=== PATIENT | female | born 1955 | race Caucasian/White ===

== ENCOUNTER → 2018-04-25 09:18 | Outpatient (CLI) | payer OTHER, SELFPAY ==
--- NOTE | 2018-04-25 09:22 | DI.MG.S_ITS ---
BILATERAL DIGITAL SCREENING MAMMOGRAM 3D/2D WITH CAD: 04/25/2018 CLINICAL: Routine screening. Comparison is made to exams dated: 09/04/2016 mammogram, 09/04/2015 mammogram, and 05/30/2014 mammogram - [facility]. The tissue of both breasts is heterogeneously dense. This may lower the sensitivity of mammography. Current study was also evaluated with a Computer Aided Detection (CAD) system. No significant masses, calcifications, or other findings are seen in either breast. There has been no significant interval change. IMPRESSION: NEGATIVE There is no mammographic evidence of malignancy. A 1 year screening mammogram is recommended. This exam was interpreted at Station ID: [id number]. NOTE: For mammograms, a report in lay terms will be sent to the patient. Approximately 15% of breast malignancies will not be visualized mammographically. In the management of a palpable breast mass, a negative mammogram must not discourage biopsy of a clinically suspicious lesion. Electronically Signed By: Reagan espinosa/divya:04/27/2018 09:45:55 letter sent: Normal Exam ACR BI-RADS Category 1: Negative [id number]
[2018-04-25 10:16] LABS: Alanine Aminotransferase 29 IU/L (9-52); Albumin 4.6 g/dL (3.5-5.0); Albumin Globulin Ratio 1.7 (1.0-2.8); Alkaline Phosphatase 51 U/L (38-126); Aspartate Aminotransferase 25 IU/L (14-36); BUN Creatinine Ratio 15.5 (6-22); Bilirubin Total 0.8 mg/dL (0.2-1.3); Blood Urea Nitrogen 17 mg/dL (7-17); Calcium 10.1 mg/dL (8.4-10.2); Carbon Dioxide 26 mmol/L (22-32); Chloride 106 mmol/L (98-107); Cholesterol 228 mg/dL (140-199); Estimated Glomerular Filt Rate 50.2 mL/min (>60); Globulin 2.7 g/dL (1.7-4.1); Glucose 88 mg/dL (80-110); HDL Cholesterol 86 mg/dL (40-60); HEMOLYSIS < 15 (0-50); LDL Cholesterol Calculated 127 mg/dL (<100); Potassium 4.2 mmol/L (3.4-5.1); Sodium 142 mmol/L (137-145); Total Protein 7.3 g/dL (6.3-8.2); Triglycerides 74 mg/dL (35-150)
[2018-04-25 10:32] LABS: Vitamin D 25 Hydroxy (D3) 70.2 ng/mL (30.0-100.0)
[2018-04-25 10:45] LABS: Thyroid Stimulating Hormone 0.82 uIU/mL (0.47-4.68)
== END ==
PROVIDERS: PCP Family Medicine; Visit Provider Physician Assistant
DX: Z12.31 Encounter for screening mammogram for malignant neoplasm of breast (principal); E03.9 Hypothyroidism, unspecified; E78.5 Hyperlipidemia, unspecified; M81.0 Age-related osteoporosis without current pathological fracture; B19.10 Unspecified viral hepatitis B without hepatic coma; Z86.39 Personal history of other endocrine, nutritional and metabolic disease
CPT/HCPCS: 36415; 77063; 77067; 80053; 80061; 82306; 84439; 84443; 87517

== ENCOUNTER → 2018-05-05 10:50 | Outpatient (CLI) | payer OTHER, SELFPAY ==
--- NOTE | 2018-05-05 10:52 | DI.RAD.S_ITS ---
PROCEDURE: XR SHOULDER RT MIN 2V INDICATIONS: bilateral shoulder pain TECHNIQUE: 3 views of the shoulder were acquired. COMPARISON: None. FINDINGS: Bones: No fractures or dislocations but there is near severe degenerative osteoarthritic change at the glenohumeral joint and moderately severe such degeneration at the right acromioclavicular joint. No suspicious bony lesions. Visualized ribs appear intact. Soft tissues: No suspicious soft tissue calcifications. IMPRESSION: Shoulder joint osteoarthritis on the right overall is quite severe and most pronounced at the glenohumeral joint. It is less pronounced at the acromioclavicular joint with each of these joints show greater degeneration than the corresponding areas of the left shoulder. Dictated by: Ramo Ryan M.D. on 05/05/2018 at 13:01 Approved by: Ramo Ryan M.D. on 05/05/2018 at 13:02
--- NOTE | 2018-05-05 10:52 | DI.RAD.S_ITS ---
PROCEDURE: XR SHOULDER LT MIN 2V INDICATIONS: bilateral shoulder pain TECHNIQUE: 3 views of the shoulder were acquired. COMPARISON: None. FINDINGS: Bones: No fractures or dislocations there is moderately severe glenohumeral joint osteoarthritis and moderate acromioclavicular degenerative change, without effusion or evidence of loose body. No suspicious bony lesions. Visualized ribs appear intact. Soft tissues: No suspicious soft tissue calcifications. IMPRESSION: Shoulder joint osteoarthritis is moderately severe the glenohumeral joint, and moderate at the acromioclavicular joint but no recent trauma is suspected. Dictated by: Ramo Ryan M.D. on 05/05/2018 at 13:00 Approved by: Ramo Ryan M.D. on 05/05/2018 at 13:01
== END ==
PROVIDERS: PCP Physician Assistant; Visit Provider Physician Assistant
DX: M25.511 Pain in right shoulder (principal); M25.512 Pain in left shoulder; M19.012 Primary osteoarthritis, left shoulder; M19.011 Primary osteoarthritis, right shoulder
CPT/HCPCS: 73030

== ENCOUNTER → 2018-07-15 08:31 | Outpatient (CLI) | payer OTHER, SELFPAY ==
[2018-07-15 11:27] LABS: TSH w/ Reflex to FT4 1.63 uIU/mL (0.47-4.68)
== END ==
PROVIDERS: PCP Physician Assistant; Visit Provider Internal Medicine
DX: E89.0 Postprocedural hypothyroidism (principal)
CPT/HCPCS: 36415; 84443

== ENCOUNTER → 2018-11-04 11:37 | Outpatient (CLI) | payer OTHER, SELFPAY ==
[2018-11-04 12:29] LABS: Add Manual Diff / Slide Review NO; Basophils Absolute Auto 100 /uL (0-100); Basophils Percent Auto 1.8 % (0-2); Eosinophils Absolute Auto 200 /uL (0-450); Eosinophils Percent Auto 3.3 % (2-4); Hematocrit 38.4 % (36-46); Hemoglobin 12.7 g/dL (12.0-16.0); Lymphocytes Absolute Auto 2800 /uL (1100-4500); Lymphocytes Percent Auto 38.7 % (25-40); Mean Corpuscular HGB Conc 33.1 % (30-36); Mean Corpuscular Hemoglobin 29.6 PG (26-34); Mean Corpuscular Volume 89.5 fL (80-100); Monocytes Absolute Auto 500 /uL (0-900); Monocytes Percent Auto 6.5 % (3-14); Neutrophils Absolute Auto 3600 /uL (1500-7000); Neutrophils Percent Auto 49.7 % (50-75); Platelet Count 339 X10^3/uL (150-400); White Blood Cell Count 7.3 X10^3/uL (4.5-11.0)
[2018-11-04 12:42] LABS: Alanine Aminotransferase 20 IU/L (9-52); Albumin 4.3 g/dL (3.5-5.0); Albumin Globulin Ratio 1.7 (1.0-2.8); Alkaline Phosphatase 49 U/L (38-126); Aspartate Aminotransferase 23 IU/L (14-36); Bilirubin Total 0.4 mg/dL (0.2-1.3); Blood Urea Nitrogen 15 mg/dL (7-17); Calcium 9.9 mg/dL (8.4-10.2); Carbon Dioxide 25 mmol/L (22-32); Chloride 108 mmol/L (98-107); Estimated Glomerular Filt Rate 55.8 mL/min (>60); Globulin 2.5 g/dL (1.7-4.1); Glucose 87 mg/dL (80-110); HEMOLYSIS < 15 (0-50); Potassium 4.4 mmol/L (3.4-5.1); Sodium 142 mmol/L (137-145); Total Protein 6.8 g/dL (6.3-8.2)
[2018-11-04 13:13] LABS: Thyroid Stimulating Hormone 0.82 uIU/mL (0.47-4.68)
== END ==
PROVIDERS: Family Provider Family Medicine; PCP Physician Assistant; Visit Provider Physician Assistant
DX: E03.9 Hypothyroidism, unspecified (principal); R19.7 Diarrhea, unspecified
CPT/HCPCS: 36415; 80053; 84443; 85025

== ENCOUNTER → 2018-11-06 10:15 | Outpatient (CLI) | payer OTHER, SELFPAY ==
[2018-11-06 12:16] LABS: Clostridium Difficile Tox PCR Negative for C. diff
== END ==
PROVIDERS: PCP Physician Assistant; Visit Provider Physician Assistant
DX: E03.9 Hypothyroidism, unspecified (principal); R19.7 Diarrhea, unspecified
CPT/HCPCS: 87045; 87493; 87899

== ENCOUNTER 2019-03-10 09:22 | Day surgery (SDC) | payer OTHER, SELFPAY ==
--- NOTE | 2019-03-10 | PATH_ITS ---
[facility] Accession Number: [id number] . 01 Material submitted: . colon - RANDOM COLON BIOPSIES . 01 Clinical history: . COLONOSCOPY W/POSS BX . 02 Diagnosis: Random Colon, Biopsies: Collagenous colitis. Negative for granulomas, dysplasia and malignancy. MRV 03/11/2019 1258 Local . 02 Electronically signed: . Roxann Fong MD, Pathologist NPI- [id number] . 01 Gross description: . RANDOM COLON BIOPSIES: Received in formalin are multiple fragment(s) of hummel, soft tissue measuring 0.1 x 0.1 x 0.1 cm to 0.3 x 0.2 x 0.2 cm submitted entirely in 1 cassette(s) [place] [place]10[place] 2225 Local . 02 Pathologist provided ICD-10: R19.7, K52.89 . 02 CPT . 982538 Performed at: 01 [facility] [address] [facility], [place], [place] [id number] MD Reagan York MD Phone: [phone] Performed at: 02 [facility] [address] [place], [place] [id number] MD Roxann Fong MD Phone: [phone]
[2019-03-10 10:12] VITALS: BP 126/77; PULSE 78; RESP 17; TEMP 36.7; O2SAT 98
[2019-03-10] MEDS: SODIUM CHLORIDE 0.9% 1,000 ML 42 ML IV (10:17)
--- NOTE | 2019-03-10 10:31 | PM.HP.1 ---
History of Present Illness History of Present Illness Chief complaint: [id number] COLONOSCOPY W/POSS BX Patient History Medical History (Updated 11/04/18 @ 11:46 by Margot Mo PA-C) Abnormal Pap smear of cervix (Resolved) Anxiety (Chronic) Cataracts, bilateral (Chronic) Cervical cancer (Chronic) Chicken pox (Resolved) Graves disease (Chronic) Hepatitis B (Chronic) Hyperthyroidism (Chronic) Migraines (Chronic) Plantar warts (Chronic) Shoulder pain (Chronic) Skin cancer (Chronic) Vision disorder (Chronic) Surgical History (Updated 05/17/18 @ 20:45 by Becca Agarwal) Anesthesia (Resolved) History of hip replacement Family & Social History Family History (Updated 05/17/18 @ 20:46 by Becca Agarwal) Father Alcoholism Cancer of bladder Diabetes mellitus Emphysema Mental health problem Mother Alcoholism Grandmother Alzheimer's disease Grandfather Emphysema Grandmother No problems noted. Social History: household members none Tobacco & Substance use: Smoking Status Former smoker alcohol intake current Meds Home Medications and Allergies Home Medications Medication Instructions Recorded Confirmed Type levothyroxine 75 mcg tablet See Rx Instructions PO .6 days a 11/04/18 03/10/19 History week tab levothyroxine 88 mcg tablet See Rx Instructions PO .one day a 11/04/18 03/10/19 History week tab Allergies Allergy/AdvReac Type Severity Reaction Status Date / Time taylor [TAYLOR] Allergy Intermediate blisters Verified 03/10/19 10:04 Exam Vital Signs (past 8 hours): - 03/10/19 10:12 Temperature 98.1 F Pulse Rate 78 Respiratory Rate 17 Blood Pressure 126/77 Pulse Oximetry 98 Oxygen Delivery Method Room Air Narrative Exam Narrative: Oropharynx free of lesions Chest clear to auscultation percussion Cardiac exam reveals no S3 or murmur Assessment & Plan Assessment & Plan narrative: Chronic diarrhea of unknown etiology. Rule out underlying colitis particularly microscopic colitis and need for screening for colorectal cancer Risks, benefits, alternatives have been explained. Further recommendations will follow the results of the study.
--- NOTE | 2019-03-10 10:32 | PM.OP.ENDO ---
Operative Date/Time/Diagnoses Date of procedure: 03/10/19 Time of procedure: 10:32 Pre-op diagnosis: See indication and findings Procedure & Clinicians Study performed: Colonoscopy Indications: Chronic diarrhea Surgeon: Star Briseno Procedure Notes Procedure in detail: After informed consent was obtained the patient was placed in left lateral decubitus position. The video colonoscope was introduced the rectum slowly advanced to the cecum and in the terminal ileum was intubated.. On slow withdrawal mucosa was carefully examined. The scope was removed. The patient tolerated procedure well. Blood loss none Complications none Sedation Total sedation time 18 minutes Versed 6 mg fentanyl 100 mg IV titration Findings 1. Normal terminal ileum Two. Normal colonoscopy to cecum. Random biopsies taken to rule out microscopic colitis Will be in touch with her regarding biopsies. If negative have to consider diagnoses for her chronic diarrhea. Recall should be 5-10 years.
[2019-03-10] MEDS: MIDAZOLAM 5 MG/5 ML VIAL IV (11:22)
[2019-03-10] MEDS: fentaNYL 250 MCG/5 ML INJ IV (11:23)
[2019-03-10 11:27] VITALS: BP 101/61; PULSE 72; RESP 13; TEMP 36.8; O2SAT 94
[2019-03-10 11:32] VITALS: BP 101/66; PULSE 69; RESP 13; O2SAT 95
[2019-03-10 11:37] VITALS: BP 104/66; PULSE 73; RESP 11; O2SAT 95
[2019-03-10 11:52] VITALS: BP 100/65; PULSE 71; RESP 14; O2SAT 95
[2019-03-10 12:08] VITALS: BP 105/68; PULSE 83; RESP 16; TEMP 36.6; O2SAT 98
== END 2019-03-10 12:17 | disposition home or self-care (01) ==
PROVIDERS: PCP Physician Assistant; Visit Provider Internal Medicine Gastroenterology
PROC: 0DJD8ZZ Inspection of Lower Intestinal Tract, Via Natural or Artificial Opening Endoscopic (ICD-10-PCS; CPT 45378; principal; 2019-03-10 10:30)
DX: K52.831 Collagenous colitis (principal); F41.9 Anxiety disorder, unspecified; E03.9 Hypothyroidism, unspecified
CPT/HCPCS: 45380; J2250; J3010

== ENCOUNTER → 2019-10-29 11:17 | Outpatient (CLI) | payer MEDICARE, OTHER, SELFPAY ==
--- NOTE | 2019-10-29 | DI.MG.S_ITS ---
BILATERAL DIGITAL SCREENING MAMMOGRAM 3D/2D WITH CAD: 10/29/2019 CLINICAL: Routine screening. Family history of breast cancer. Comparison is made to exams dated: 04/25/2018 mammogram, 09/04/2016 mammogram, and 09/04/2015 mammogram - [facility]. The tissue of both breasts is heterogeneously dense. This may lower the sensitivity of mammography. Current study was also evaluated with a Computer Aided Detection (CAD) system. No significant masses, calcifications, or other findings are seen in either breast. There has been no significant interval change. IMPRESSION: NEGATIVE There is no mammographic evidence of malignancy. A 1 year screening mammogram is recommended. This exam was interpreted at Station ID: [id number]. NOTE: For mammograms, a report in lay terms will be sent to the patient. Approximately 15% of breast malignancies will not be visualized mammographically. In the management of a palpable breast mass, a negative mammogram must not discourage biopsy of a clinically suspicious lesion. Electronically Signed By: Reagan espinosa/divya:10/29/2019 13:01:35 copy to: Piedad Ramirez letter sent: Normal Exam ACR BI-RADS Category 1: Negative [id number]
== END ==
PROVIDERS: PCP Registered Nurse Diabetes Educator; Referring Provider Physician Assistant; Visit Provider Physician Assistant
DX: Z12.31 Encounter for screening mammogram for malignant neoplasm of breast (principal); Z80.3 Family history of malignant neoplasm of breast
CPT/HCPCS: 77063; 77067

== ENCOUNTER → 2019-11-02 10:28 | Outpatient (CLI) | payer MEDICARE, OTHER, SELFPAY ==
[2019-11-02 11:37] LABS: Add Manual Diff / Slide Review NO; Basophils Absolute Auto 100 /uL (0-100); Basophils Percent Auto 1.1 % (0-2); Eosinophils Absolute Auto 200 /uL (0-450); Eosinophils Percent Auto 3.9 % (2-4); Hematocrit 37.8 % (36-46); Hemoglobin 12.6 g/dL (12.0-16.0); Lymphocytes Absolute Auto 2500 /uL (1100-4500); Lymphocytes Percent Auto 39.3 % (25-40); Mean Corpuscular HGB Conc 33.3 % (30-36); Mean Corpuscular Hemoglobin 29.9 PG (26-34); Mean Corpuscular Volume 89.6 fL (80-100); Monocytes Absolute Auto 500 /uL (0-900); Monocytes Percent Auto 7.4 % (3-14); Neutrophils Absolute Auto 3100 /uL (1500-7000); Neutrophils Percent Auto 48.3 % (50-75); Platelet Count 316 X10^3/uL (150-400); Red Blood Cell Count 4.22 X10^6/uL (4.0-5.2); Red Cell Distribution Width 14.9 % (11.6-14.8); White Blood Cell Count 6.4 X10^3/uL (4.5-11.0)
[2019-11-02 12:08] LABS: Alanine Aminotransferase 17 IU/L (<35); Albumin 3.9 g/dL (3.5-5.0); Albumin Globulin Ratio 1.7 (1.0-2.8); Alkaline Phosphatase 50 U/L (38-126); Aspartate Aminotransferase 26 IU/L (14-36); BUN Creatinine Ratio 13.8 (6-22); Bilirubin Total 0.3 mg/dL (0.2-1.3); Blood Urea Nitrogen 12 mg/dL (7-17); Calcium 9.6 mg/dL (8.4-10.2); Carbon Dioxide 24 mmol/L (22-32); Chloride 107 mmol/L (98-107); Cholesterol 195 mg/dL (140-199); Estimated Glomerular Filt Rate > 60.0 mL/min (>60); Globulin 2.3 g/dL (1.7-4.1); Glucose 84 mg/dL (80-110); HDL Cholesterol 65 mg/dL (40-60); HEMOLYSIS < 15 (0-50); LDL Cholesterol Calculated 90 mg/dL (<100); Potassium 4.1 mmol/L (3.4-5.1); Sodium 138 mmol/L (137-145); Total Protein 6.2 g/dL (6.3-8.2); Triglycerides 198 mg/dL (35-150)
[2019-11-02 12:37] LABS: TSH w/ Reflex to FT4 1.29 uIU/mL (0.47-4.68)
== END ==
PROVIDERS: PCP Registered Nurse Diabetes Educator; Referring Provider Registered Nurse Diabetes Educator; Visit Provider Registered Nurse Diabetes Educator
DX: E03.9 Hypothyroidism, unspecified (principal); R94.4 Abnormal results of kidney function studies
CPT/HCPCS: 36415; 80053; 80061; 84443; 85025

== ENCOUNTER 2019-11-17 15:15 | Emergency (ER) | payer MEDICARE, OTHER, SELFPAY ==
[2019-11-17 15:22] VITALS: BP 149/67; PULSE 78; RESP 17; TEMP 36.3; O2SAT 98; BMI 20.3
--- NOTE | 2019-11-17 15:25 | DI.RAD.S_ITS ---
PROCEDURE: XR CLAVICLE LT INDICATIONS: fell onto left shoulder TECHNIQUE: 2 views of the clavicle were acquired. COMPARISON: [facility], CR, XR SHOULDER RT MIN 2V, 05/05/2018, 10:56. [facility], CR, XR SHOULDER LT MIN 2V, 05/05/2018, 10:56[facility], CR, XR SHOULDER LT MIN 2V, 11/17/2019, 15:17. FINDINGS: Bones: There is a mid to distal clavicular shaft fracture with superior displacement of the distal fracture fragment. The right acromioclavicular joint is intact. There is mild AC joint degeneration.. No suspicious bony lesions. Soft tissues: No suspicious soft tissue calcifications. IMPRESSION: Mid to distal left clavicular shaft fracture. Dictated by: Rosy Acharya M.D. on 11/17/2019 at 15:50 Approved by: Rosy Acharya M.D. on 11/17/2019 at 15:53
--- NOTE | 2019-11-17 15:25 | DI.RAD.S_ITS ---
PROCEDURE: XR SHOULDER LT MIN 2V INDICATIONS: fell onto left shoulder TECHNIQUE: 2 views of the shoulder were acquired. COMPARISON: [facility], CR, XR SHOULDER LT MIN 2V, 05/05/2018, 10:56. FINDINGS: Bones: There is a left mid to distal clavicular shaft fracture. Severe glenohumeral joint degeneration and mild acromioclavicular joint degeneration. No suspicious bony lesions. Visualized ribs appear intact. Soft tissues: No suspicious soft tissue calcifications. IMPRESSION: Left clavicular shaft fracture. Dictated by: Rosy Acharya M.D. on 11/17/2019 at 15:53 Approved by: Rosy Acharya M.D. on 11/17/2019 at 15:55
[2019-11-17] MEDS: OXYCODONE/ACETAMINOPHEN 5/325 TABLET 1 TAB PO (18:50)
[2019-11-17] MEDS: IBUPROFEN 400 MG TABLET PO (18:50)
--- NOTE | 2019-11-17 18:55 | ED.UPPEXIN ---
HPI - Extremity Injury (Upper) General Chief Complaint: Extremity Injury, Upper Stated Complaint: thinks broke her left shoulder Time Seen by Provider: 11/17/19 18:11 Source: patient Mode of arrival: Wheelchair Limitations: no limitations History of Present Illness HPI narrative: 64-year-old woman with a history of hypothyroidism was working in her yard stumbled and fell forward landing on her left shoulder. She was able to get up and get back in to call for assistance. She is complaining of significant left upper chest and left shoulder pain having difficulty moving her arm due to pain. Related Data Home Medications Medication Instructions Recorded Confirmed levothyroxine 75 mcg tablet See Rx Instructions PO .6 days a 11/04/18 11/08/19 week tab levothyroxine 88 mcg tablet See Rx Instructions PO .one day a 11/04/18 11/08/19 week tab Previous Rx's Medication Instructions Recorded oxycodone-acetaminophen 1 tab PO Q6H PRN #14 tab 11/17/19 Allergies Allergy/AdvReac Type Severity Reaction Status Date / Time taylor [TAYLOR] Allergy Intermediate blisters Verified 11/17/19 15:38 Review of Systems Review of Systems Narrative: Pertinent positive and negative findings as per HPI Remainder of review of systems is otherwise unremarkable for Constitutional: Fevers, chills, weakness ENT: No sore throat, neck pain, ear pain CV: Chest pain, palpitations, dyspnea on exertion Respiratory: Cough, wheeze, dyspnea GI: Nausea, vomiting, diarrhea, change in bowel habits, black or bloody stools : Dysuria, hematuria, flank pain Neuro: Syncope, dizziness, tingling Patient History Medical History Abnormal Pap smear of cervix (Resolved) Anxiety (Chronic) Cataracts, bilateral (Chronic) Cervical cancer (Chronic) Chicken pox (Resolved) Graves disease (Chronic) Hepatitis B (Chronic) Hyperthyroidism (Chronic) Migraines (Chronic) Plantar warts (Chronic) Renal function test abnormal (Acute) Shoulder pain (Chronic) Skin cancer (Chronic) Vision disorder (Chronic) Surgical History Anesthesia (Resolved) History of hip replacement Family History Father Alcoholism Cancer of bladder Diabetes mellitus Emphysema Mental health problem Mother Alcoholism Grandmother Alzheimer's disease Grandfather Emphysema Grandmother No problems noted. Social History household members: none Smoking Status: Former smoker Tobacco: How many years used: 48 second hand exposure: No alcohol intake: current substance use type: marijuana Smoking Status: Former smoker alcohol intake frequency: holidays/special occasions only Substance Use Type: marijuana Exam Narrative Exam Narrative: General: Alert appropriate in moderate pain Neck: Supple with no midline point tenderness Chest: Large hematoma over mid clavicle left side without skin breakdown. Respiratory: Able to speak in full sentences, no obvious respiratory distress, no wheezing Skin: No obvious rashes, warm and dry Neurologic: Grossly intact no obvious asymmetries or abnormalities Psych, appropriate insight and affect, cooperative Extremity: Left arm causes significant pain to the clavicle with any movement. No actual arm tenderness full range of motion at the elbow and the wrist, shoulder is to tender to move through all planes of passive range of motion. She is neurovascularly intact Initial Vital Signs Initial Vital Signs: Vital Signs Temperature 97.3 F L 11/17/19 15:22 Pulse Rate 78 11/17/19 15:22 Respiratory Rate 17 11/17/19 15:22 Blood Pressure 149/67 H 11/17/19 15:22 Pulse Oximetry 98 11/17/19 15:22 Course Orders Ordered: Discontinued Medications Ibuprofen (Advil) 400 mg PO NOW ONE Stop: 11/17/19 18:45 Last Admin: 11/17/19 18:50 Dose: 400 mg Documented by: MENDEZ Oxycodone/Acetaminophen (Percocet 5/325) 1 tab PO NOW ONE Stop: 11/17/19 18:45 Last Admin: 11/17/19 18:50 Dose: 1 tab Documented by: MENDEZ Vital Signs Vital signs: Vital Signs - 8 hr 11/17/19 19:00 Pulse Rate 63 Respiratory Rate 15 Blood Pressure 146/74 H Pulse Oximetry 100 MDM - Extremity Injury (Upper) Medical Records Attestation: I reviewed the patient's medical records. Imaging Data X-ray shoulder: Radiologist's Impression: IMPRESSION: Left clavicular shaft fracture. Dictated by: Rosy Acharya M.D. on 11/17/2019 at 15:53 X-ray clavicle: Radiologist's Impression: Bones: There is a mid to distal clavicular shaft fracture with superior displacement of the distal fracture fragment. The right acromioclavicular joint is intact. There is mild AC joint degeneration.. No suspicious bony lesions. Soft tissues: No suspicious soft tissue calcifications. IMPRESSION: Mid to distal left clavicular shaft fracture. Dictated by: Rosy Acharya M.D. on 11/17/2019 at 15:50 MDM Narrative Medical decision making narrative: Mechanical fall with left mid to distal shaft fracture of the clavicle. No other significant trauma. She is placed in a sling and instructed to follow-up with orthopedics. Pain control and anticipated course of healing are reviewed. She is safe for home discharge Discharge Plan Departure Patient Disposition: Home Clinical Impression: Clavicle fracture Qualifiers: Encounter type: initial encounter Clavicle location: shaft Fracture type: closed Fracture alignment: displaced Laterality: left Qualified Code(s): S42.022A - Displaced fracture of shaft of left clavicle, initial encounter for closed fracture Fall Qualifiers: Encounter type: initial encounter Qualified Code(s): W19.XXXA - Unspecified fall, initial encounter Discharge Date/Time: 11/17/19 19:17 Instructions: DI for Clavicle Fracture-Adult Activity Restrictions/Additional Instructions: Thank you for coming in today I am so sorry you had to wait so long and I am sorry that you fell down and broke your collarbone. Fortunately, you did not do any other damage to yourself. The collarbone is broken about half way. It is slightly overlapping but otherwise nicely approximated. The treatment for this is pain control and a sling for comfort. You will need to follow-up with our orthopedic surgeon, Dr. Hills within the next 2-7 days. There is a good chance that you will not need any surgery and this is going to heal nicely. Using 400 mg of ibuprofen (2 cwum-hki-alxfvde pills) and 1 Tylenol every 6 hours can be very helpful in controlling pain. For severe pain, using 400 mg of ibuprofen and 1 Percocet can be helpful. Any time you take a Percocet, please be aware there is narcotic in it. About he should not be driving and taking stool softeners to prevent constipation any time you are on narcotics is helpful. 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 If you notice new findings, other concerns or your pain is unable to be controlled, please feel free to return to the emergency department. I hope you heal quickly Prescriptions: New oxycodone-acetaminophen 5-325 mg tablet 1 tab PO Q6H PRN (Reason: pain) Qty: 14 RF: 0 No Action levothyroxine 75 mcg tablet See Rx Instructions PO .6 days a week RF: 0 levothyroxine 88 mcg tablet See Rx Instructions PO .one day a week RF: 0 Referrals: Riccardo Trent ARNP [Primary Care Provider] - Mati Hills MD [Physician] -
[2019-11-17 19:00] VITALS: BP 146/74; PULSE 63; RESP 15; O2SAT 100
== END 2019-11-17 19:17 | disposition home or self-care (01) ==
PROVIDERS: Emergency Provider Emergency Medicine; PCP Registered Nurse Diabetes Educator
DX: S42.022A Displaced fracture of shaft of left clavicle, initial encounter for closed fracture (principal); W19.XXXA Unspecified fall, initial encounter; R07.9 Chest pain, unspecified
CPT/HCPCS: 73000; 73030; 99283; 99284

== ENCOUNTER → 2020-06-10 13:09 | Outpatient (CLI) | payer MEDICARE, OTHER, SELFPAY ==
--- NOTE | 2020-06-10 | DI.RAD.S_ITS ---
PROCEDURE: XR CHEST 2V INDICATIONS: abnormal breath sounds TECHNIQUE: 2 views of the chest were acquired. COMPARISON: [facility], CR, XR CLAVICLE LEFT, 02/11/2020, 10:13. [facility], CR, CHEST 2VW, 01/09/2009, 10:06. FINDINGS: Surgical changes and devices: None. Lungs and pleura: Lungs are clear. No pleural effusions or pneumothorax. Mediastinum: Mediastinal contours are normal. Heart size is normal. Bones and chest wall: No suspicious bony abnormalities. A healing left clavicle fracture can be seen. Age-appropriate bony degenerative changes are seen. Soft tissues appear unremarkable. IMPRESSION: Clear lungs. Healing left clavicle fracture. Dictated by: Russ Monsalve M.D. on 06/10/2020 at 12:38 Approved by: Russ Monsalve M.D. on 06/10/2020 at 12:39
== END ==
PROVIDERS: PCP Registered Nurse Diabetes Educator; Referring Provider Internal Medicine Endocrinology, Diabetes & Metabolism; Visit Provider Internal Medicine Endocrinology, Diabetes & Metabolism
DX: R06.9 Unspecified abnormalities of breathing (principal); S42.002D Fracture of unspecified part of left clavicle, subsequent encounter for fracture with routine healing
CPT/HCPCS: 71046

== ENCOUNTER → 2020-06-19 11:25 | Outpatient (CLI) | payer MEDICARE, OTHER, SELFPAY ==
[2020-06-19 14:35] LABS: Free T3, Triiodothyronine Free 2.55 pg/mL (2.77-5.27)
[2020-06-19 14:48] LABS: Thyroid Stimulating Hormone 1.88 uIU/mL (0.47-4.68)
== END ==
PROVIDERS: PCP Registered Nurse Diabetes Educator; Referring Provider Internal Medicine Endocrinology, Diabetes & Metabolism; Visit Provider Internal Medicine Endocrinology, Diabetes & Metabolism
DX: E89.0 Postprocedural hypothyroidism (principal); Z86.39 Personal history of other endocrine, nutritional and metabolic disease; I48.0 Paroxysmal atrial fibrillation
CPT/HCPCS: 36415; 84439; 84443; 84481

== ENCOUNTER → 2020-11-29 11:52 | Outpatient (CLI) | payer MEDICARE, OTHER, SELFPAY ==
[2020-11-29 13:52] LABS: Free T3, Triiodothyronine Free 2.88 pg/mL (2.77-5.27)
[2020-11-29 14:06] LABS: Thyroid Stimulating Hormone 1.06 uIU/mL (0.47-4.68)
== END ==
PROVIDERS: PCP Physician Assistant; Referring Provider Internal Medicine Endocrinology, Diabetes & Metabolism; Visit Provider Internal Medicine Endocrinology, Diabetes & Metabolism
DX: E89.0 Postprocedural hypothyroidism (principal); Z86.39 Personal history of other endocrine, nutritional and metabolic disease; I48.0 Paroxysmal atrial fibrillation
CPT/HCPCS: 36415; 84443; 84481

== ENCOUNTER → 2021-04-02 15:04 | Outpatient (CLI) | payer MEDICARE, OTHER, SELFPAY ==
[2021-04-02 17:42] LABS: Hep C Virus Ab w/Reflex Quant NEGATIVE s/c (NEGATIVE)
== END ==
PROVIDERS: PCP Physician Assistant; Referring Provider Physician Assistant; Visit Provider Physician Assistant
DX: Z11.59 Encounter for screening for other viral diseases (principal)
CPT/HCPCS: 36415; 86803

== ENCOUNTER → 2021-10-03 12:12 | Outpatient (CLI) | payer MEDICARE, OTHER, SELFPAY ==
--- NOTE | 2021-10-03 12:15 | DI.RAD.S_ITS ---
PROCEDURE: XR FOOT LT MIN 3V INDICATIONS: Foot Injury TECHNIQUE: 3 views of the foot were acquired. COMPARISON: None. FINDINGS: Bones: Nondisplaced fifth metatarsal base fracture. No suspicious bony lesions. Metallic density overlying the mid second phalanx. Soft tissues: No tibiotalar joint effusion. Achilles tendon appears normal. IMPRESSION: Nondisplaced fifth metatarsal base fracture. Dictated by: Vera Hamm M.D. on 10/03/2021 at 13:23 Approved by: Vera Hamm M.D. on 10/03/2021 at 13:25
== END ==
PROVIDERS: PCP Physician Assistant; Referring Provider Physician Assistant; Visit Provider Physician Assistant
DX: S92.355A Nondisplaced fracture of fifth metatarsal bone, left foot, initial encounter for closed fracture (principal); M79.672 Pain in left foot; X58.XXXA Exposure to other specified factors, initial encounter
CPT/HCPCS: 73630

== ENCOUNTER → 2021-12-11 12:09 | Outpatient (CLI) | payer MEDICARE, OTHER, SELFPAY | PROVIDERS: PCP Physician Assistant; Referring Provider Physician Assistant; Visit Provider Physician Assistant | DX: E89.0 Postprocedural hypothyroidism (principal) | CPT/HCPCS: 36415; 84443 ==

== ENCOUNTER 2022-01-09 11:43 | Inpatient (IN) | payer MEDICARE, OTHER, SELFPAY ==
[2022-01-09] VITALS (17 sets, daily range): BP systolic 103–129; BP diastolic 56–65; PULSE 71–83; RESP 16–18; TEMP 36.7–37.8; O2SAT 87–99; BMI 19.8
[2022-01-09 12:38] LABS: Add Manual Diff / Slide Review NO; Basophils Absolute Auto 100 /uL (0-100); Basophils Percent Auto 0.8 % (0-2); Eosinophils Absolute Auto 200 /uL (0-450); Eosinophils Percent Auto 1.6 % (2-4); Hematocrit 33.7 % (36-46); Hemoglobin 11.4 g/dL (12.0-16.0); Lymphocytes Absolute Auto 2100 /uL (1100-4500); Lymphocytes Percent Auto 18.6 % (25-40); Mean Corpuscular HGB Conc 33.8 % (30-36); Mean Corpuscular Hemoglobin 29.8 PG (26-34); Mean Corpuscular Volume 88.2 fL (80-100); Monocytes Absolute Auto 1500 /uL (0-900); Monocytes Percent Auto 13.5 % (3-14); Neutrophils Absolute Auto 7300 /uL (1500-7000); Neutrophils Percent Auto 65.5 % (50-75); Platelet Count 409 X10^3/uL (150-400); Red Blood Cell Count 3.82 X10^6/uL (4.0-5.2); Red Cell Distribution Width 13.5 % (11.6-14.8); White Blood Cell Count 11.2 X10^3/uL (4.5-11.0)
[2022-01-09 12:50] LABS: Alanine Aminotransferase 37 IU/L (<35); Albumin 3.5 g/dL (3.5-5.0); Albumin Globulin Ratio 1.1 (1.0-2.8); Alkaline Phosphatase 142 U/L (38-126); Aspartate Aminotransferase 38 IU/L (14-36); BUN Creatinine Ratio 15.6 (6-22); Bilirubin Total 0.6 mg/dL (0.2-1.3); Blood Urea Nitrogen 12 mg/dL (7-17); Calcium 8.4 mg/dL (8.4-10.2); Carbon Dioxide 24 mmol/L (22-32); Chloride 102 mmol/L (98-107); Estimated Glomerular Filt Rate > 60 mL/min (>60); Globulin 3.3 g/dL (1.7-4.1); Glucose 108 mg/dL (80-110); HEMOLYSIS < 15 (0-50); Lipase 43 U/L (23-300); Potassium 2.9 mmol/L (3.4-5.1); Sodium 137 mmol/L (137-145); Total Protein 6.8 g/dL (6.3-8.2)
--- NOTE | 2022-01-09 15:53 | DI.CT.S_ITS ---
PROCEDURE: CT ABDOMEN PELVIS W CON INDICATIONS: RLQ tenderness, appy vs colitis? TECHNIQUE: After the administration of oral and IV contrast, axial sections were acquired from the lung bases to the pubic symphysis. Coronal and sagittal reformats were performed. For radiation dose reduction, the following was used: automated exposure control, adjustment of mA and/or kV according to patient size. COMPARISON: None. FINDINGS: Image quality: Excellent. Lung bases: Unremarkable. Heart: No significant findings. ABDOMEN: Liver: Density at the falciform ligament. Suspect focal fatty infiltration. Gallbladder: Unremarkable. Biliary ducts: Unremarkable. Pancreas: Unremarkable. Spleen: Unremarkable. Adrenal Glands: Unremarkable. Kidneys and Ureters: No hydronephrosis. Small left renal cysts. Stomach and Bowel: Stomach is not distended. No small bowel obstruction. There is a fluid collection medial adjacent to the cecum measuring 6.8 x 3.8 x 2.8 cm, (08/07 and ), estimated volume of 38 cc. There is a small amount of air within this collection. There is an appendiculolith suspected which measures 2.1 cm. There is thickening at the cecum. Diverticulosis. There is a small amount of fluid tracking along the liver and as well as in the right lower quadrant pericolic gutter and right pelvis. No gross pneumoperitoneum. Peritoneum: No abnormal intraperitoneal fluid. No free air. Ventral Wall: No hernia. Abdominal Nodes: No retroperitoneal or mesenteric adenopathy by size criteria. Vessels: Aorta and inferior vena cava are normal in size. PELVIS: Beam hardening in the pelvis. Pelvic Organs: Trace free fluid. Bladder: Unremarkable. Pelvic Nodes: No enlarged lymph nodes. Miscellaneous: No inguinal hernias are seen. Bones: No suspicious lesion. DDD most pronounced at L4-L5 and L5-S1. Bilateral hip arthroplasties. IMPRESSION: 1. Findings most consistent with a ruptured appendicitis. Right lower quadrant abscess measuring 6.8 cm in maximum length and approximately 38 cc. 2. No small bowel obstruction. No hydronephrosis. Comment: Findings were discussed with Roxann Borjas at time of dictation. Dictated by: Mo Johnson M.D. on 01/09/2022 at 17:07 Approved by: Mo Johnson M.D. on 01/09/2022 at 17:19
[2022-01-09] MEDS: LACTATED RINGERS 1,000 ML 1000 ML IV (16:18)
[2022-01-09] MEDS: KETOROLAC 30 MG/ML VIAL 15 MG IV (16:19)
[2022-01-09] MEDS: POTASSIUM CHLORIDE 20 MEQ/15 ML UDC 40 MEQ PO (16:19)
[2022-01-09 16:32] LABS: C-Reactive Protein Quant 6.8 mg/dL (<1.0)
[2022-01-09 16:47] LABS: Procalcitonin 0.11 ng/mL (<0.5)
--- NOTE | 2022-01-09 18:15 | ED.ABDPAIN ---
HPI - Abdominal Pain <FROILAN Salter - Last Filed: 01/09/22 18:24> General Chief Complaint: Abdominal Pain Stated Complaint: Covid shot day ago, still feeling ill Time Seen by Provider: 01/09/22 15:47 Source: patient Mode of arrival: Ambulatory History of Present Illness HPI narrative: This is a 66-year-old female presents to the emergency department complaining right lower quadrant pain and states that she has a history of colitis, states it has been a lifetime of colitis but she thinks that since she had her COVID vaccination 1 day ago that it potentially flared up her colitis and is here for evaluation of her abdominal pain. She states that she feels nauseated without vomiting, states that her last bowel movement was this morning states that she had impacted stool and her bowel movement was hard at 1st and then was followed by loose stool. She states she has not had any other bowel movement since. Denies any blood in her stool. Denies any dysuria, urinary frequency or urgency. States that this was her 5th COVID vaccination, states that she had a fever today and was concerned about why she had a fever and this abdominal pain. She denies any history of abdominal surgery. Related Data Home Medications Medication Instructions Recorded Confirmed levothyroxine 75 mcg tablet See Rx Instructions PO .6 days a 11/04/18 01/09/22 week levothyroxine 88 mcg tablet See Rx Instructions PO .one day a 11/04/18 01/09/22 week Allergies Allergy/AdvReac Type Severity Reaction Status Date / Time taylor [TAYLOR] Allergy Intermediate blisters Verified 10/03/21 12:03 Review of Systems <FROILAN Salter - Last Filed: 01/09/22 18:24> Review of Systems Narrative: Review of systems is negative for acute abnormalities unless otherwise noted in HPI Patient History <FROILAN Salter - Last Filed: 01/09/22 18:24> Medical History Abnormal Pap smear of cervix Anxiety Cataracts, bilateral Cervical cancer Chicken pox Graves disease Hepatitis B Hyperthyroidism Migraines Plantar warts Renal function test abnormal Shoulder pain Skin cancer Vision disorder Surgical History Anesthesia History of hip replacement Family History Father Alcoholism Cancer of bladder Diabetes mellitus Emphysema Mental health problem Mother Alcoholism Grandmother Alzheimer's disease Grandfather Emphysema Grandmother No problems noted. Social History household members: none Smoking Status: Current some day smoker Tobacco: How many years used: 48 second hand exposure: No alcohol intake: current substance use type: marijuana Smoking Status: Former smoker alcohol intake frequency: holidays/special occasions only Substance Use Type: does not use Exam <FROILAN Salter - Last Filed: 01/09/22 18:24> Narrative Exam Narrative: Reviewed vitals signs and nursing notes. General: cooperative, comfortable, in no acute distress, well groomed, appears dehydrated and mildly febrile HEENT: symmetrical facial expressions, moist mucous membranes Cardiovascular: regular rate and rhythm, no peripheral edema, warm extremities Respiratory: normal effort, able to speak in complete sentences, without wheezing, stridor, or abnormal breath sounds. No retractions or tachypnea. GI: abdomen soft, tender to palpation over the right lower quadrant, no tenderness over the left lower quadrant, no CVA tenderness, no suprapubic tenderness, tenderness at McBurney's point, nondistended, without masses, rebound tenderness or exquisite tenderness with exam. MSK: moves all extremities, neurovascularly intact, no weakness, normal tone Skin: brisk capillary refill, without pallor or erythema Neuro: normal speech and cognition, A&O x3, ambulatory, clear speech Psych: mental status is grossly normal, congruent mood, normal affect, pleasant and cooperative Initial Vital Signs Initial Vital Signs: Vital Signs Temperature 100.1 F H 01/09/22 11:58 Pulse Rate 80 01/09/22 11:58 Respiratory Rate 16 01/09/22 11:58 Blood Pressure 113/62 01/09/22 11:58 Pulse Oximetry 98 01/09/22 11:58 Oxygen Delivery Method 01/09/22 11:58 <Senait Torres DO - Last Filed: 01/10/22 05:32> Initial Vital Signs Initial Vital Signs: Vital Signs Temperature 100.1 F H 01/09/22 11:58 Pulse Rate 80 01/09/22 11:58 Respiratory Rate 16 01/09/22 11:58 Blood Pressure 113/62 01/09/22 11:58 Pulse Oximetry 98 01/09/22 11:58 Oxygen Delivery Method 01/09/22 11:58 Course <FROILAN Salter - Last Filed: 01/09/22 18:24> Orders Ordered: Acetaminophen (Acetaminophen 325 Mg Tablet) 650 mg PO Q6HR PRN PRN Reason: Fever/Mild Pain (1-3) Last Admin: 01/10/22 00:14 Dose: 650 mg Documented By: Heparin Sodium (Porcine) (Heparin 5,000 Unit/Ml Vial) 5,000 unit SUBCUT BID [facility] Sodium Chloride (Normal Saline 0.9%) 1,000 mls @ 100 mls/hr IV CONT [facility] Last Admin: 01/10/22 00:13 Dose: 100 mls/hr Documented By: Piperacillin Sod/Tazobactam (Sod 3.375 gm/ Sodium Chloride) 100 mls @ 25 mls/hr IV Q8H [facility] Last Admin: 01/10/22 00:13 Dose: 25 mls/hr Documented By: POTASSIUM CHLORIDE IN WATER (Potassium Cl 10 Meq/100 Ml Elana) 10 meq in 100 mls @ 100 mls/hr IV Q1H [facility] Stop: 01/10/22 08:44 Last Admin: 01/10/22 04:58 Dose: 100 mls/hr Documented By: Ketorolac Tromethamine (Ketorolac 30 Mg/Ml Vial) 15 mg IV Q6H PRN PRN Reason: Pain, Moderate (4-6) Stop: 01/12/22 23:14 Levothyroxine Sodium (Levothyroxine 75 Mcg Tablet) 75 mcg PO SuMoTuThFrSa@0700 [facility] Levothyroxine Sodium (Levothyroxine 88 Mcg Tablet) 88 mcg PO We@0700 [facility] Melatonin (Melatonin 3 Mg Tablet) 6 mg PO BEDTIME [facility] Last Admin: 01/09/22 23:03 Dose: 6 mg Documented By: Morphine Sulfate (Morphine 2 Mg/Ml Inj) 2 mg IV Q4H PRN PRN Reason: Breakthrough pain only (8-10) Naloxone HCl (Naloxone 0.4 Mg/Ml Vial) 0.1 mg IV Q2MIN PRN PRN Reason: Opiate Reversal Discontinued Medications Lactated Ringer's (Lactated Ringers) 1,000 mls @ 1,000 mls/hr IV BOLUS ONE Stop: 01/09/22 16:53 Last Infusion: 01/09/22 17:41 Dose: 0 mls/hr Documented By: Admin: 01/09/22 16:18 Dose: 1,000 mls/hr Documented By: JUAN Piperacillin Sod/Tazobactam (Sod 4.5 gm/ Sodium Chloride) 100 mls @ 200 mls/hr IV NOW ONE Stop: 01/09/22 17:19 Last Infusion: 01/09/22 20:19 Dose: 0 mls/hr Documented By: Admin: 01/09/22 18:37 Dose: 200 mls/hr Documented By: NR Ketorolac Tromethamine (Ketorolac 30 Mg/Ml Vial) 15 mg IV NOW ONE Stop: 01/09/22 15:56 Last Admin: 01/09/22 16:19 Dose: 15 mg Documented By: JUAN Potassium Chloride (Potassium Chloride 20 Meq/15 Ml Udc) 40 meq PO NOW ONE Stop: 01/09/22 16:16 Last Admin: 01/09/22 16:19 Dose: 40 meq Documented By: JUAN Potassium Chloride (Potassium Chloride 20 Meq Tab) 40 meq PO NOW ONE Stop: 01/10/22 02:54 Last Admin: 01/10/22 03:08 Dose: 40 meq Documented By: ERMIAS Vital Signs Vital signs: Vital Signs - 8 hr 01/09/22 11:58 01/09/22 15:20 01/09/22 15:21 Temperature 100.1 F H 98.8 F Pulse Rate 80 75 Respiratory Rate 16 Blood Pressure 113/62 124/59 L Pulse Oximetry 98 98 Oxygen Delivery Method Room Air 01/09/22 15:21 01/09/22 15:30 01/09/22 15:30 Temperature Pulse Rate 74 73 Respiratory Rate Blood Pressure 123/64 Pulse Oximetry 99 98 Oxygen Delivery Method 01/09/22 16:00 01/09/22 16:12 01/09/22 16:12 Temperature Pulse Rate 79 83 Respiratory Rate Blood Pressure 126/58 L Pulse Oximetry 98 87 L Oxygen Delivery Method <Senait Torres DO - Last Filed: 01/10/22 05:32> Orders Ordered: Acetaminophen (Acetaminophen 325 Mg Tablet) 650 mg PO Q6HR PRN PRN Reason: Fever/Mild Pain (1-3) Last Admin: 01/10/22 00:14 Dose: 650 mg Documented By: ERMIAS Heparin Sodium (Porcine) (Heparin 5,000 Unit/Ml Vial) 5,000 unit SUBCUT BID [facility] Sodium Chloride (Normal Saline 0.9%) 1,000 mls @ 100 mls/hr IV CONT [facility] Last Admin: 01/10/22 00:13 Dose: 100 mls/hr Documented By: VH Piperacillin Sod/Tazobactam (Sod 3.375 gm/ Sodium Chloride) 100 mls @ 25 mls/hr IV Q8H [facility] Last Admin: 01/10/22 00:13 Dose: 25 mls/hr Documented By: ERMIAS POTASSIUM CHLORIDE IN WATER (Potassium Cl 10 Meq/100 Ml Elana) 10 meq in 100 mls @ 100 mls/hr IV Q1H [facility] Stop: 01/10/22 08:44 Last Admin: 01/10/22 04:58 Dose: 100 mls/hr Documented By: ERMIAS Ketorolac Tromethamine (Ketorolac 30 Mg/Ml Vial) 15 mg IV Q6H PRN PRN Reason: Pain, Moderate (4-6) Stop: 01/12/22 23:14 Levothyroxine Sodium (Levothyroxine 75 Mcg Tablet) 75 mcg PO SuMoTuThFrSa@0700 [facility] Levothyroxine Sodium (Levothyroxine 88 Mcg Tablet) 88 mcg PO We@0700 [facility] Melatonin (Melatonin 3 Mg Tablet) 6 mg PO BEDTIME [facility] Last Admin: 01/09/22 23:03 Dose: 6 mg Documented By: ERMIAS Morphine Sulfate (Morphine 2 Mg/Ml Inj) 2 mg IV Q4H PRN PRN Reason: Breakthrough pain only (8-10) Naloxone HCl (Naloxone 0.4 Mg/Ml Vial) 0.1 mg IV Q2MIN PRN PRN Reason: Opiate Reversal Discontinued Medications Lactated Ringer's (Lactated Ringers) 1,000 mls @ 1,000 mls/hr IV BOLUS ONE Stop: 01/09/22 16:53 Last Infusion: 01/09/22 17:41 Dose: 0 mls/hr Documented By: Admin: 01/09/22 16:18 Dose: 1,000 mls/hr Documented By: NR Piperacillin Sod/Tazobactam (Sod 4.5 gm/ Sodium Chloride) 100 mls @ 200 mls/hr IV NOW ONE Stop: 01/09/22 17:19 Last Infusion: 01/09/22 20:19 Dose: 0 mls/hr Documented By: Admin: 01/09/22 18:37 Dose: 200 mls/hr Documented By: NR Ketorolac Tromethamine (Ketorolac 30 Mg/Ml Vial) 15 mg IV NOW ONE Stop: 01/09/22 15:56 Last Admin: 01/09/22 16:19 Dose: 15 mg Documented By: NR Potassium Chloride (Potassium Chloride 20 Meq/15 Ml Udc) 40 meq PO NOW ONE Stop: 01/09/22 16:16 Last Admin: 01/09/22 16:19 Dose: 40 meq Documented By: NR Potassium Chloride (Potassium Chloride 20 Meq Tab) 40 meq PO NOW ONE Stop: 01/10/22 02:54 Last Admin: 01/10/22 03:08 Dose: 40 meq Documented By: ERMIAS Vital Signs Vital signs: Vital Signs - 8 hr 01/09/22 11:58 01/09/22 15:20 01/09/22 15:21 Temperature 100.1 F H 98.8 F Pulse Rate 80 75 Respiratory Rate 16 Blood Pressure 113/62 124/59 L Pulse Oximetry 98 98 Oxygen Delivery Method Room Air 01/09/22 15:21 01/09/22 15:30 01/09/22 15:30 Temperature Pulse Rate 74 73 Respiratory Rate Blood Pressure 123/64 Pulse Oximetry 99 98 Oxygen Delivery Method 01/09/22 16:00 01/09/22 16:12 01/09/22 16:12 Temperature Pulse Rate 79 83 Respiratory Rate Blood Pressure 126/58 L Pulse Oximetry 98 87 L Oxygen Delivery Method MDM - Abdominal Pain <FROILAN Salter - Last Filed: 01/09/22 18:24> Lab Data Result diagrams: 01/09/22 12:20 01/09/22 12:20 Labs: Lab Results 01/09/22 01/09/22 01/09/22 Range/Units 12:20 12:20 12:20 WBC 11.2 H (4.5-11.0) X10^3/uL RBC 3.82 L (4.0-5.2) X10^6/uL Hgb 11.4 L (12.0-16.0) g/dL Hct 33.7 L (36-46) % MCV 88.2 (80-100) fL MCH 29.8 (26-34) PG MCHC 33.8 (30-36) % RDW 13.5 (11.6-14.8) % Plt Count 409 H (150-400) X10^3/uL Neut % (Auto) 65.5 (50-75) % Lymph % (Auto) 18.6 L (25-40) % [place] % (Auto) 13.5 (3-14) % Eos % (Auto) 1.6 L (2-4) % Baso % (Auto) 0.8 (0-2) % Neut # (Auto) 7300 H (7131-5873) /uL Lymph # (Auto) 2100 (4203-3146) /uL [place] # (Auto) 1500 H (0-900) /uL Eos # (Auto) 200 (0-450) /uL Baso # (Auto) 100 (0-100) /uL PT (10.1-12.7) SECONDS INR (0.9-1.3) Sodium 137 (137-145) mmol/L Potassium 2.9 L (3.4-5.1) mmol/L Chloride 102 (98-107) mmol/L Carbon Dioxide 24 (22-32) mmol/L BUN 12 (7-17) mg/dL Creatinine 0.77 (0.52-1.04) mg/dL Estimated GFR > 60 (>60) mL/min BUN/Creatinine Ratio 15.6 (6-22) Glucose 108 (80-110) mg/dL Calcium 8.4 (8.4-10.2) mg/dL Total Bilirubin 0.6 (0.2-1.3) mg/dL AST 38 H (14-36) IU/L ALT 37 H (<35) IU/L Alkaline Phosphatase 142 H (38-126) U/L C-Reactive Protein 6.8 H (<1.0) mg/dL Total Protein 6.8 (6.3-8.2) g/dL Albumin 3.5 (3.5-5.0) g/dL Globulin 3.3 (1.7-4.1) g/dL Albumin/Globulin Ratio 1.1 (1.0-2.8) Lipase 43 Cancelled (23-300) U/L Procalcitonin 0.11 (<0.5) ng/mL 01/09/22 Range/Units 17:40 WBC (4.5-11.0) X10^3/uL RBC (4.0-5.2) X10^6/uL Hgb (12.0-16.0) g/dL Hct (36-46) % MCV (80-100) fL MCH (26-34) PG MCHC (30-36) % RDW (11.6-14.8) % Plt Count (150-400) X10^3/uL Neut % (Auto) (50-75) % Lymph % (Auto) (25-40) % [place] % (Auto) (3-14) % Eos % (Auto) (2-4) % Baso % (Auto) (0-2) % Neut # (Auto) (6912-6641) /uL Lymph # (Auto) (4428-0891) /uL [place] # (Auto) (0-900) /uL Eos # (Auto) (0-450) /uL Baso # (Auto) (0-100) /uL PT 13.3 H (10.1-12.7) SECONDS INR 1.2 (0.9-1.3) Sodium (137-145) mmol/L Potassium (3.4-5.1) mmol/L Chloride (98-107) mmol/L Carbon Dioxide (22-32) mmol/L BUN (7-17) mg/dL Creatinine (0.52-1.04) mg/dL Estimated GFR (>60) mL/min BUN/Creatinine Ratio (6-22) Glucose (80-110) mg/dL Calcium (8.4-10.2) mg/dL Total Bilirubin (0.2-1.3) mg/dL AST (14-36) IU/L ALT (<35) IU/L Alkaline Phosphatase (38-126) U/L C-Reactive Protein (<1.0) mg/dL Total Protein (6.3-8.2) g/dL Albumin (3.5-5.0) g/dL Globulin (1.7-4.1) g/dL Albumin/Globulin Ratio (1.0-2.8) Lipase (23-300) U/L Procalcitonin (<0.5) ng/mL Imaging Data CT scan - abdomen/pelvis: Radiologist's Impression: PROCEDURE:? CT ABDOMEN PELVIS W CON ? INDICATIONS:? RLQ tenderness, appy vs colitis? ? TECHNIQUE:? After the administration of oral and IV contrast, axial sections were acquired from the lung bases to the pubic symphysis.? Coronal and sagittal reformats were performed.? For radiation dose reduction, the following was used:? automated exposure control, adjustment of mA and/or kV according to patient size. ? COMPARISON:? None. ? FINDINGS:? Image quality:? Excellent.? ? Lung bases:? Unremarkable.? ? Heart:? No significant findings. ? ? ABDOMEN: Liver:? Density at the falciform ligament.? Suspect focal fatty infiltration.? ? Gallbladder:? Unremarkable.? ? Biliary ducts:? Unremarkable.? ? Pancreas:? Unremarkable.? ? Spleen:? Unremarkable.? ? Adrenal Glands:? Unremarkable.? ? Kidneys and Ureters:? No hydronephrosis.? Small left renal cysts.? ? ? Stomach and Bowel:? Stomach is not distended.? No small bowel obstruction.? ? There is a fluid collection medial adjacent to the cecum measuring 6.8 x 3.8 x 2.8 cm, (08/07 and ), estimated volume of 38 cc.? There is a small amount of air within this collection.? There is an appendiculolith suspected which measures 2.1 cm. ? There is thickening at the cecum.? Diverticulosis.? There is a small amount of fluid tracking along the liver and as well as in the right lower quadrant pericolic gutter and right pelvis.? No gross pneumoperitoneum. ? Peritoneum:? No abnormal intraperitoneal fluid.? No free air.? ? Ventral Wall: ? No hernia.? Abdominal Nodes:? No retroperitoneal or mesenteric adenopathy by size criteria.? Vessels:? Aorta and inferior vena cava are normal in size.? ? PELVIS:? Beam hardening in the pelvis. Pelvic Organs:? Trace free fluid.? ? Bladder:? Unremarkable.? ? Pelvic Nodes: No enlarged lymph nodes.? Miscellaneous: No inguinal hernias are seen. ? ? ? Bones:? No suspicious lesion.? DDD most pronounced at L4-L5 and L5-S1.? Bilateral hip arthroplasties. ? ? IMPRESSION:? 1. Findings most consistent with a ruptured appendicitis.? Right lower quadrant abscess measuring 6.8 cm in maximum length and approximately 38 cc. ? 2. No small bowel obstruction.? No hydronephrosis.? ? ? Comment: Findings were discussed with Roxann Borjas at time of dictation. ? Dictated by: Mo Johnson M.D. on 01/09/2022 at 17:07 ? ? Approved by: Mo Johnson M.D. on 01/09/2022 at 17:19 ? MDM Narrative Medical decision making narrative: This is a 66-year-old female with history of collagenous colitis who presents to the emergency department with right lower quadrant pain, fever, nausea, and concern for worsening right lower quadrant pain. On exam, she had tenderness over McBurney's point, her lab work is significant for hypokalemia with a potassium of 2.9, this was replaced with 40 mEq of p.o. potassium, no other electrolyte abnormalities, creatinine is 0.77 with a GFR over 60, AST is mildly elevated at 38, ALT of 37, alkaline phosphatase elevated to 142, no other elevation of liver enzymes, lipase is 43, procalcitonin is 0.11. Still pending UA, patient has not had to void. CT abdomen and pelvis was obtained for concern about her right lower quadrant tenderness and leukocytosis, this shows findings most consistent with a ruptured appendicitis, right lower quadrant abscess measuring 6.8 cm in maximum length and approximately 38 cc. No small bowel obstruction, no hydronephrosis, there is appendicolith suspected measuring 2.1 cm with a small amount of air within this fluid collection. These results were called to Dr. Christine West with General surgery who recommends that patient had this drained via IR. Radiology was consulted and they state that they can see the patient tomorrow and do this procedure tomorrow. Consultation with Dr. Hinds with hospitalist service for admission and she accepts. Patient was treated with 4.5 mg of Zosyn, 1 L of lactated Ringer's, 15 mg of Toradol and her pain was well-controlled while she was in the emergency department. <Senait Torres, DO - Last Filed: 01/10/22 05:32> Lab Data Labs: Lab Results 09/21/22 09/21/22 09/21/22 Range/Units 12:20 12:20 12:20 WBC 11.2 H (4.5-11.0) X10^3/uL RBC 3.82 L (4.0-5.2) X10^6/uL Hgb 11.4 L (12.0-16.0) g/dL Hct 33.7 L (36-46) % MCV 88.2 (80-100) fL MCH 29.8 (26-34) PG MCHC 33.8 (30-36) % RDW 13.5 (11.6-14.8) % Plt Count 409 H (150-400) X10^3/uL Neut % (Auto) 65.5 (50-75) % Lymph % (Auto) 18.6 L (25-40) % [place] % (Auto) 13.5 (3-14) % Eos % (Auto) 1.6 L (2-4) % Baso % (Auto) 0.8 (0-2) % Neut # (Auto) 7300 H (4167-5792) /uL Lymph # (Auto) 2100 (1737-9594) /uL [place] # (Auto) 1500 H (0-900) /uL Eos # (Auto) 200 (0-450) /uL Baso # (Auto) 100 (0-100) /uL PT (10.1-12.7) SECONDS INR (0.9-1.3) Sodium 137 (137-145) mmol/L Potassium 2.9 L (3.4-5.1) mmol/L Chloride 102 (98-107) mmol/L Carbon Dioxide 24 (22-32) mmol/L BUN 12 (7-17) mg/dL Creatinine 0.77 (0.52-1.04) mg/dL Estimated GFR > 60 (>60) mL/min BUN/Creatinine Ratio 15.6 (6-22) Glucose 108 (80-110) mg/dL Calcium 8.4 (8.4-10.2) mg/dL Total Bilirubin 0.6 (0.2-1.3) mg/dL AST 38 H (14-36) IU/L ALT 37 H (<35) IU/L Alkaline Phosphatase 142 H (38-126) U/L C-Reactive Protein 6.8 H (<1.0) mg/dL Total Protein 6.8 (6.3-8.2) g/dL Albumin 3.5 (3.5-5.0) g/dL Globulin 3.3 (1.7-4.1) g/dL Albumin/Globulin Ratio 1.1 (1.0-2.8) Lipase 43 Cancelled (23-300) U/L Procalcitonin 0.11 (<0.5) ng/mL 01/09/22 Range/Units 17:40 WBC (4.5-11.0) X10^3/uL RBC (4.0-5.2) X10^6/uL Hgb (12.0-16.0) g/dL Hct (36-46) % MCV (80-100) fL MCH (26-34) PG MCHC (30-36) % RDW (11.6-14.8) % Plt Count (150-400) X10^3/uL Neut % (Auto) (50-75) % Lymph % (Auto) (25-40) % [place] % (Auto) (3-14) % Eos % (Auto) (2-4) % Baso % (Auto) (0-2) % Neut # (Auto) (8562-2470) /uL Lymph # (Auto) (0400-7245) /uL [place] # (Auto) (0-900) /uL Eos # (Auto) (0-450) /uL Baso # (Auto) (0-100) /uL PT 13.3 H (10.1-12.7) SECONDS INR 1.2 (0.9-1.3) Sodium (137-145) mmol/L Potassium (3.4-5.1) mmol/L Chloride (98-107) mmol/L Carbon Dioxide (22-32) mmol/L BUN (7-17) mg/dL Creatinine (0.52-1.04) mg/dL Estimated GFR (>60) mL/min BUN/Creatinine Ratio (6-22) Glucose (80-110) mg/dL Calcium (8.4-10.2) mg/dL Total Bilirubin (0.2-1.3) mg/dL AST (14-36) IU/L ALT (<35) IU/L Alkaline Phosphatase (38-126) U/L C-Reactive Protein (<1.0) mg/dL Total Protein (6.3-8.2) g/dL Albumin (3.5-5.0) g/dL Globulin (1.7-4.1) g/dL Albumin/Globulin Ratio (1.0-2.8) Lipase (23-300) U/L Procalcitonin (<0.5) ng/mL Discharge Plan Departure Patient Disposition: Admitted as Observation Clinical Impression: Acute appendicitis with rupture, Acute appendicitis with appendiceal abscess, Hypokalemia Admit Date/Time: 01/09/22 18:07 Admit Provider: Brenda Miller <Senait Torres DO - Last Filed: 01/10/22 05:32> Cosign ED Attending Cosignature Attestation: I was immediately available in the department for consultation. Documentation has been reviewed. I agree with assessment and plan.
[2022-01-09 18:28] LABS: INR 1.2 (0.9-1.3); Prothrombin Time 13.3 SECONDS (10.1-12.7)
[2022-01-09] MEDS: PIPERACILLIN/TAZO 4.5 GM in SODIUM CHLORIDE 0.9% 100 ML IV (18:37)
[2022-01-09 19:02] LABS: Appearance Urine UA CLEAR; Bilirubin Urine UA NEGATIVE (NEGATIVE); Color Urine UA YELLOW; Glucose Urine UA NEGATIVE (Negative); Ketones Urine UA TRACE (NEGATIVE); Leukocyte Esterase Urine UA NEGATIVE (NEGATIVE); Nitrite Urine UA NEGATIVE (Negative); Occult Blood Urine UA TRACE-INTACT (Negative); Protein Urine UA TRACE (Negative); Specific Gravity Urine UA <=1.005 (1.000-1.035)
[2022-01-09 19:06] LABS: pH Urine UA 6.5 (4.5-8.0)
[2022-01-09 19:15] LABS: Amorphous Sediment Urine 1+; Bacteria Urine None Seen; Culture Indicated Urine Cult Not Indicated; Mucus Urine 1+ (Negative); RBC Urine 1-5/HPF (0-5/HPF); WBC Urine None Seen (0-5/HPF)
[2022-01-09 20:49] LABS: COVID19 -Nasal RAPID Negative (Negative)
[2022-01-09] MEDS: MELATONIN 3 MG TABLET 6 MG PO (23:03)
--- NOTE | 2022-01-09 23:15 | PC.ADMIT ---
[email or web address] Admission Note: The patient,Heather Souza,66 y/o, was given written information regarding hospital policies, unit procedures and contact persons. Patient's smoking status: Current some day smoker. Vital Signs - 8 hr 01/09/22 15:20 01/09/22 15:21 01/09/22 15:21 Temperature 98.8 F Pulse Rate 75 74 Blood Pressure 124/59 L Pulse Oximetry 98 99 01/09/22 15:30 01/09/22 15:30 01/09/22 16:00 Temperature Pulse Rate 73 79 Blood Pressure 123/64 Pulse Oximetry 98 98 01/09/22 16:12 01/09/22 16:12 01/09/22 16:30 Temperature Pulse Rate 83 Blood Pressure 126/58 L 129/62 Pulse Oximetry 87 L 01/09/22 16:30 01/09/22 17:00 01/09/22 17:00 Temperature Pulse Rate 80 81 Blood Pressure 113/56 L Pulse Oximetry 97 95 01/09/22 17:30 01/09/22 17:30 01/09/22 18:00 Temperature Pulse Rate 82 Blood Pressure 108/59 L 110/65 Pulse Oximetry 96 01/09/22 18:00 01/09/22 18:37 01/09/22 18:38 Temperature Pulse Rate 81 77 Blood Pressure 119/58 L Pulse Oximetry 96 96 01/09/22 18:38 01/09/22 19:00 01/09/22 19:30 Temperature Pulse Rate 75 73 71 Blood Pressure Pulse Oximetry 96 96 96 01/09/22 20:00 01/09/22 20:10 01/09/22 20:10 Temperature Pulse Rate 73 77 Blood Pressure 114/59 L Pulse Oximetry 97 96 A&OX4 able to make needs known . Pt is calm and cooperative with all care. Asking appropriate questions. P currentlt rates abdominal discomfort as minimal, 1/10 at rest and 3/10 with activity. Pt understands that she will have a drain placed through IR procedure. pt requested something to help her sleep , Melatonin 6mg administered effective to elicit sleep
--- NOTE | 2022-01-09 23:52 | P.HP_ITS ---
History of Present Illness History of Present Illness Date Patient Seen: 01/09/22 Time Patient Seen: 23:52 Chief complaint: Fevers, abd pain found to have a ruptured appendix Narrative: Heather Souza is a 66 y.o. female with hypothyroidism had received the new COVID vaccine on 01/01 and was followed by the next week of fevers with a Tmax of 102.2. She had been self treating her symptoms with tylenol. She initially had one episode of sharp internal abdominal pain she stated felt like menstrual cramps, describing it like as though a knife was cutting though from inside. She decided to present with persistent fevers. She has had little stool output because she has not felt like eating. Denies nausea or vomiting, dyspepsia, diarrhea or dysurea. CT of the abdomen identified a fluid collection adjacent to the cecum measuring 6 by 3 x 2 cm with an estimated volume of 38 cc. Concluded findings of a ruptured appendicitis with the right lower quadrant abscess. Patient is afebrile, blood pressure 89/49, heart rate 72, respiratory rate 18, oxygen saturation of 94% on room air she weighs 57 kg with a BMI of 19.8. She had a mildly elevated white count of 11.2 she is mildly anemic with a hemoglobin and hematocrit of 11.4 and 33.7, she has mild left shift of 7300, potassium is 2.9, AST 38 ALT 37 alk-phos 142 and her C reactive protein is 6.8, she has trace ketones in her urine and COVID-19 PCR is negative. FH: Patient states both parents were alcoholic worse in the father. Mother age 65 with lung cancer. Father age 79 with bladder cancer but ultimately succumbed to pneumonia. Patient History Medical History Abnormal Pap smear of cervix Anxiety Cataracts, bilateral Cervical cancer Chicken pox Graves disease Hepatitis B Hyperthyroidism Migraines Plantar warts Renal function test abnormal Shoulder pain Skin cancer Vision disorder Surgical History Anesthesia History of hip replacement Family & Social History Family History Father Alcoholism Cancer of bladder Diabetes mellitus Emphysema Mental health problem Mother Alcoholism Grandmother Alzheimer's disease Grandfather Emphysema Grandmother No problems noted. Social History: household members none Prior Living Arrangements House Safety & Behavioral: Feels Safe in Current Yes Environment Been Physically Hurt or No Threatened By a Person Tobacco & Substance use: Tobacco type cannabis/marijuana Smoking Status Current some day smoker alcohol intake current alcohol intake frequency holiday/special occasion Substance Use Type marijuana Meds Home Medications and Allergies Home Medications Medication Instructions Recorded Confirmed Type levothyroxine 75 mcg tablet See Rx Instructions PO .6 days a 11/04/18 01/09/22 History week levothyroxine 88 mcg tablet See Rx Instructions PO .one day a 11/04/18 01/09/22 History week Allergies Allergy/AdvReac Type Severity Reaction Status Date / Time taylor [TAYLOR] Allergy Intermediate blisters Verified 10/03/21 12:03 Review of Systems Review of Systems ROS: Yes All systems reviewed with the patient and are negative except as otherwise documented Exam Vital Signs (past 8 hours): - 01/09/22 16:00 01/09/22 16:12 01/09/22 16:12 Pulse Rate 79 83 Blood Pressure 126/58 L Pulse Oximetry 98 87 L 01/09/22 16:30 01/09/22 16:30 01/09/22 17:00 Pulse Rate 80 Blood Pressure 129/62 113/56 L Pulse Oximetry 97 01/09/22 17:00 01/09/22 17:30 01/09/22 17:30 Pulse Rate 81 82 Blood Pressure 108/59 L Pulse Oximetry 95 96 01/09/22 18:00 01/09/22 18:00 01/09/22 18:37 Pulse Rate 81 77 Blood Pressure 110/65 Pulse Oximetry 96 96 01/09/22 18:38 01/09/22 18:38 01/09/22 19:00 Pulse Rate 75 73 Blood Pressure 119/58 L Pulse Oximetry 96 96 01/09/22 19:30 01/09/22 20:00 01/09/22 20:10 Pulse Rate 71 73 Blood Pressure 114/59 L Pulse Oximetry 96 97 01/09/22 20:10 Pulse Rate 77 Blood Pressure Pulse Oximetry 96 Oxygen Delivery Method Room Air Narrative Exam Narrative: Gen: Alert, oriented, well-developed 66 y.o. female, NAD HEENT: normocephalic, atraumatic, conjunctiva clear, sclera non-icteric, oral mucosa pink and moist Neck: supple, full ROM, no JVD, trachea is midline Resp: Lungs CTA, non-labored breathing CV: RRR, no murmur or rubs Abd: soft, diffusely tender, normoactive BTs Skin: no lesions or rashes, dry and intact Neuro: Alert and oriented X 4 w/no focal deficits. Speech clear and coherent. Extremities: moves all 4 extremities, is ambulatory, negative Therese?s sign Psyche: Very pleasant, normal mood and affect. Objective Labs Result Diagrams: 01/09/22 12:20 01/09/22 12:20 Labs: Laboratory Results - last 24 hr 01/09/22 01/09/22 01/09/22 12:20 12:20 12:20 WBC 11.2 H RBC 3.82 L Hgb 11.4 L Hct 33.7 L MCV 88.2 MCH 29.8 MCHC 33.8 RDW 13.5 Plt Count 409 H Neut % (Auto) 65.5 Lymph % (Auto) 18.6 L [place] % (Auto) 13.5 Eos % (Auto) 1.6 L Baso % (Auto) 0.8 Neut # (Auto) 7300 H Lymph # (Auto) 2100 [place] # (Auto) 1500 H Eos # (Auto) 200 Baso # (Auto) 100 PT INR Sodium 137 Potassium 2.9 L Chloride 102 Carbon Dioxide 24 BUN 12 Creatinine 0.77 Estimated GFR > 60 BUN/Creatinine Ratio 15.6 Glucose 108 Calcium 8.4 Total Bilirubin 0.6 AST 38 H ALT 37 H Alkaline Phosphatase 142 H C-Reactive Protein 6.8 H Total Protein 6.8 Albumin 3.5 Globulin 3.3 Albumin/Globulin Ratio 1.1 Lipase 43 Cancelled Procalcitonin 0.11 Urine Color Urine Appearance Urine pH Ur Specific [place] Urine Protein Urine Glucose (UA) Urine Ketones Urine Occult Blood Urine Nitrate Urine Bilirubin Urine Urobilinogen Ur Leukocyte Esterase Urine RBC Urine WBC Amorphous Sediment Urine Bacteria Urine Mucus Ur Culture Indicated? SARS-CoV-2 (PCR) 01/09/22 01/09/22 01/09/22 17:40 18:31 20:12 WBC RBC Hgb Hct MCV MCH MCHC RDW Plt Count Neut % (Auto) Lymph % (Auto) [place] % (Auto) Eos % (Auto) Baso % (Auto) Neut # (Auto) Lymph # (Auto) [place] # (Auto) Eos # (Auto) Baso # (Auto) PT 13.3 H INR 1.2 Sodium Potassium Chloride Carbon Dioxide BUN Creatinine Estimated GFR BUN/Creatinine Ratio Glucose Calcium Total Bilirubin AST ALT Alkaline Phosphatase C-Reactive Protein Total Protein Albumin Globulin Albumin/Globulin Ratio Lipase Procalcitonin Urine Color Yellow Urine Appearance Clear Urine pH 6.5 Ur Specific [place] <=1.005 Urine Protein Trace H Urine Glucose (UA) Negative Urine Ketones Trace H Urine Occult Blood Trace-intact Urine Nitrate Negative Urine Bilirubin Negative Urine Urobilinogen 1.0 Ur Leukocyte Esterase Negative Urine RBC 1-5/hpf Urine WBC None seen Amorphous Sediment 1+ Urine Bacteria None seen Urine Mucus 1+ H Ur Culture Indicated? Cult not indicated SARS-CoV-2 (PCR) Negative Assessment & Plan Assessment & Plan narrative: Heather Souza is admitted for further evaluation and treatment of a ruptured appendix. Acute appendicitis, present on admission * Plan is for IR drainage of the abscess with return for eventual removal of her appendix * Patient was initiated on IV Zosyn and this will be continued. * Dr. West, general surgery has been notified of the patient's admission * Toradol and morphine for pain * NPO for IR procedure tomorrow Hypothyroidism, chronic * Continue home doses of levothyroxine VTE Prophylaxis: Wells risk score 0 Heparin 5000 units SubQ bid X Bilateral SCDs Patient is admitted to the inpatient service due to the severity of disease, risks of further disease progression and this stay is expected to exceed 2 midnights. FEN: IV fluids: NS at 100 ml/hour, diet: General, NPO past midnight, labs: CBC, C/BMP, liver enzymes, Mag, PT/INR Consultants Dr. West, General Surgery care and involvement in the patient?s care is appreciated. Dispo: likely d/c to home Code status: Full Code as discussed with the patient who identifies friend Luda Fitch her surrogate and POA. [X] I have utilized all available immediate resources to obtain, update, or review of the patient's current medications VTE Deep Vein Thrombosis/Pulmonary Embolism Present on Admission: No MIPS - Admit I confirm the patient?s Advance Care Plan is present, Code status is documented, Surrogate decision maker is in patient?s record: Yes MIPS - DC The patient has current or prior documentation of left ventricular ejection fraction (LVEF) less than 40%, or moderate or severely depressed left ventricular systolic function.: No COVID-19 COVID-19 status: Negative Result date/Date tested (Pos, Neg/Pending): 01/09/22
[2022-01-10] VITALS (11 sets, daily range): BP systolic 89–119; BP diastolic 49–65; PULSE 56–72; RESP 16–19; TEMP 36.4–37.3; O2SAT 94–99
[2022-01-10] MEDS: PIPERACILLIN/TAZO 3.375 GM in SODIUM CHLORIDE 0.9% 100 ML IV ×3 (00:13→19:40)
[2022-01-10] MEDS: SODIUM CHLORIDE 0.9% 1,000 ML 100 ML IV ×2 (00:13→15:08)
[2022-01-10] MEDS: ACETAMINOPHEN 325 MG TABLET 650 MG PO ×2 (00:14→19:41)
[2022-01-10] MEDS: POTASSIUM CHLORIDE 20 MEQ TAB 40 MEQ PO (03:08)
[2022-01-10] MEDS: POTASSIUM CHLORIDE IN WATER 10 MEQ/100 ML PIGGYBACK 100 MEQ IV ×4 (04:58→08:20)
[2022-01-10] MEDS: LEVOTHYROXINE 75 MCG TABLET PO (06:55)
[2022-01-10 07:03] LABS: Add Manual Diff / Slide Review NO; Basophils Absolute Auto 100 /uL (0-100); Basophils Percent Auto 0.8 % (0-2); Eosinophils Absolute Auto 200 /uL (0-450); Eosinophils Percent Auto 1.9 % (2-4); Hematocrit 30.5 % (36-46); Hemoglobin 10.8 g/dL (12.0-16.0); Lymphocytes Absolute Auto 2500 /uL (1100-4500); Lymphocytes Percent Auto 22.9 % (25-40); Mean Corpuscular HGB Conc 35.3 % (30-36); Mean Corpuscular Volume 87.9 fL (80-100); Monocytes Absolute Auto 1500 /uL (0-900); Monocytes Percent Auto 13.8 % (3-14); Neutrophils Absolute Auto 6700 /uL (1500-7000); Neutrophils Percent Auto 60.6 % (50-75); Platelet Count 398 X10^3/uL (150-400); Red Blood Cell Count 3.47 X10^6/uL (4.0-5.2); Red Cell Distribution Width 14.2 % (11.6-14.8)
[2022-01-10 07:10] LABS: Alanine Aminotransferase 39 IU/L (<35); Albumin 2.7 g/dL (3.5-5.0); Albumin Globulin Ratio 0.9 (1.0-2.8); Alkaline Phosphatase 142 U/L (38-126); Aspartate Aminotransferase 44 IU/L (14-36); BUN Creatinine Ratio 13.8 (6-22); Bilirubin Total 0.4 mg/dL (0.2-1.3); Blood Urea Nitrogen 12 mg/dL (7-17); Carbon Dioxide 23 mmol/L (22-32); Chloride 107 mmol/L (98-107); Estimated Glomerular Filt Rate > 60 mL/min (>60); Globulin 2.9 g/dL (1.7-4.1); Glucose 97 mg/dL (80-110); HEMOLYSIS < 15 (0-50); Potassium 4.4 mmol/L (3.4-5.1); Sodium 137 mmol/L (137-145); Total Protein 5.6 g/dL (6.3-8.2)
[2022-01-10 07:42] LABS: Thyroid Stimulating Hormone 10.8 uIU/mL (0.47-4.68)
[2022-01-10] MEDS: HEPARIN 5,000 UNIT/ML VIAL 5000 UNIT SUBCUT ×2 (08:20→22:30)
--- NOTE | 2022-01-10 08:55 | DI.CT.S_ITS ---
PROCEDURE: CT DRAIN APPENDICEAL ABSCESS COMPARISON: [facility], CT, CT ABDOMEN PELVIS W CON, 01/09/2022, 16:01. INDICATIONS: IR drainage PREPROCEDURE DIAGNOSIS: Periappendiceal abscess POSTPROCEDURE DIAGNOSIS: Periappendiceal abscess OPERATIVE PHYSICIAN: Sony Guerrier MD PROCEDURE PERFORMED: 1. CT-guided right periappendiceal abscess drain placement 2. Conscious sedation for 45 minutes TECHNIQUE: Informed consent was obtained. The patient was sterilely prepped and draped. 1% lidocaine was used as a local anesthetic. IV Versed and fentanyl were administered for conscious sedation intravenously by senior living staff, while continuous cardiorespiratory monitoring was performed. Under CT guidance, an 18 gauge Chiba needle was advanced into the periappendiceal fluid collection. A 0.035 guidewire was passed through the needle and confirmed to be located within the collection. A 7 Haitian dilator and subsequently a 9 Haitian dilator were advanced into the area. A 10 Haitian Haitian all-purpose drain was placed over the wire and confirmed to be in appropriate position. Approximately 3 mL purulent fluid was obtained and sent for laboratory evaluation. A drainage bag was attached and left to gravity. Patient left the room in stable condition and was taken for postprocedure monitoring. IMPRESSION: Successful CT-guided placement of a 10 Haitian drainage catheter into a right periappendiceal abscess. Of note, the abscess appeared smaller on preprocedure images when compared to the CT from the day prior. Dictated by: Sony Guerrier M.D. on 01/10/2022 at 12:21 Approved by: Sony Guerrier M.D. on 01/10/2022 at 12:29
--- NOTE | 2022-01-10 08:56 | P.PN_ITS ---
Subjective Subjective Date Patient Seen: 01/10/22 Time Patient Seen: 10:00 Interval history: Patient had IR drain placed this AM and feeling well. Still with some RLQ abd pain but manageable. Exam Vital Signs (past 8 hours): - 01/10/22 06:00 Temperature 98.2 F Pulse Rate 56 L Respiratory Rate 19 Blood Pressure 95/62 Pulse Oximetry 97 Oxygen Delivery Method Room Air Narrative Exam Narrative: Gen: Alert, oriented, well-developed 66 y.o. female, NAD HEENT: normocephalic, atraumatic, conjunctiva clear, sclera non-icteric, oral mucosa pink and moist Neck: supple, full ROM, no JVD, trachea is midline Resp: Lungs CTA, non-labored breathing CV: RRR, no murmur or rubs Abd: soft, drain present on RLQ, tenderness to palpation of RLQ Skin: no lesions or rashes, dry and intact Neuro: Alert and oriented X 4 w/no focal deficits. Speech clear and coherent. Extremities: moves all 4 extremities, is ambulatory Psyche: Very pleasant, normal mood and affect. Objective Labs Result Diagrams: 01/10/22 06:39 01/10/22 06:39 Labs: Laboratory Results - last 24 hr 01/09/22 01/09/22 01/09/22 12:20 12:20 12:20 WBC 11.2 H RBC 3.82 L Hgb 11.4 L Hct 33.7 L MCV 88.2 MCH 29.8 MCHC 33.8 RDW 13.5 Plt Count 409 H Neut % (Auto) 65.5 Lymph % (Auto) 18.6 L [place] % (Auto) 13.5 Eos % (Auto) 1.6 L Baso % (Auto) 0.8 Neut # (Auto) 7300 H Lymph # (Auto) 2100 [place] # (Auto) 1500 H Eos # (Auto) 200 Baso # (Auto) 100 PT INR Sodium 137 Potassium 2.9 L Chloride 102 Carbon Dioxide 24 BUN 12 Creatinine 0.77 Estimated GFR > 60 BUN/Creatinine Ratio 15.6 Glucose 108 Calcium 8.4 Magnesium Total Bilirubin 0.6 AST 38 H ALT 37 H Alkaline Phosphatase 142 H C-Reactive Protein 6.8 H Total Protein 6.8 Albumin 3.5 Globulin 3.3 Albumin/Globulin Ratio 1.1 Lipase 43 Cancelled Procalcitonin 0.11 TSH Urine Color Urine Appearance Urine pH Ur Specific [place] Urine Protein Urine Glucose (UA) Urine Ketones Urine Occult Blood Urine Nitrate Urine Bilirubin Urine Urobilinogen Ur Leukocyte Esterase Urine RBC Urine WBC Amorphous Sediment Urine Bacteria Urine Mucus Ur Culture Indicated? SARS-CoV-2 (PCR) 01/09/22 01/09/22 01/09/22 17:40 18:31 20:12 WBC RBC Hgb Hct MCV MCH MCHC RDW Plt Count Neut % (Auto) Lymph % (Auto) [place] % (Auto) Eos % (Auto) Baso % (Auto) Neut # (Auto) Lymph # (Auto) [place] # (Auto) Eos # (Auto) Baso # (Auto) PT 13.3 H INR 1.2 Sodium Potassium Chloride Carbon Dioxide BUN Creatinine Estimated GFR BUN/Creatinine Ratio Glucose Calcium Magnesium Total Bilirubin AST ALT Alkaline Phosphatase C-Reactive Protein Total Protein Albumin Globulin Albumin/Globulin Ratio Lipase Procalcitonin TSH Urine Color Yellow Urine Appearance Clear Urine pH 6.5 Ur Specific [place] <=1.005 Urine Protein Trace H Urine Glucose (UA) Negative Urine Ketones Trace H Urine Occult Blood Trace-intact Urine Nitrate Negative Urine Bilirubin Negative Urine Urobilinogen 1.0 Ur Leukocyte Esterase Negative Urine RBC 1-5/hpf Urine WBC None seen Amorphous Sediment 1+ Urine Bacteria None seen Urine Mucus 1+ H Ur Culture Indicated? Cult not indicated SARS-CoV-2 (PCR) Negative 01/10/22 01/10/22 01/10/22 06:39 06:39 06:39 WBC 11.0 RBC 3.47 L Hgb 10.8 L Hct 30.5 L MCV 87.9 MCH 31.0 MCHC 35.3 RDW 14.2 Plt Count 398 Neut % (Auto) 60.6 Lymph % (Auto) 22.9 L [place] % (Auto) 13.8 Eos % (Auto) 1.9 L Baso % (Auto) 0.8 Neut # (Auto) 6700 Lymph # (Auto) 2500 [place] # (Auto) 1500 H Eos # (Auto) 200 Baso # (Auto) 100 PT INR Sodium 137 Potassium 4.4 D Chloride 107 Carbon Dioxide 23 BUN 12 Creatinine 0.87 Estimated GFR > 60 BUN/Creatinine Ratio 13.8 Glucose 97 Calcium 8.0 L Magnesium 2.0 Total Bilirubin 0.4 AST 44 H ALT 39 H Alkaline Phosphatase 142 H C-Reactive Protein Total Protein 5.6 L Albumin 2.7 L Globulin 2.9 Albumin/Globulin Ratio 0.9 L Lipase Procalcitonin TSH 10.8 H Urine Color Urine Appearance Urine pH Ur Specific [place] Urine Protein Urine Glucose (UA) Urine Ketones Urine Occult Blood Urine Nitrate Urine Bilirubin Urine Urobilinogen Ur Leukocyte Esterase Urine RBC Urine WBC Amorphous Sediment Urine Bacteria Urine Mucus Ur Culture Indicated? SARS-CoV-2 (PCR) [facility] Medical History Abnormal Pap smear of cervix Anxiety Cataracts, bilateral Cervical cancer Chicken pox Graves disease Hepatitis B Hyperthyroidism Migraines Plantar warts Renal function test abnormal Shoulder pain Skin cancer Vision disorder Surgical History Anesthesia History of hip replacement Family History Father Alcoholism Cancer of bladder Diabetes mellitus Emphysema Mental health problem Mother Alcoholism Grandmother Alzheimer's disease Grandfather Emphysema Grandmother No problems noted. Social History household members: none Smoking Status: Current some day smoker Tobacco: How many years used: 48 second hand exposure: No alcohol intake: current substance use type: marijuana Assessment & Plan Assessment & Plan narrative: # Acute appendicitis with abscess, present on admission, improving * patient presented with RLQ abd pain, CT abd pelvis with ruptured appendix and abscess * IR placed drain on 01/10 * Dr. West, general surgery following * Toradol and morphine for pain * continue Zosyn * f/u cultures # Hypothyroidism, chronic * Continue home doses of levothyroxine VTE Prophylaxis: Heparin 5000 units SubQ bid Consultants Dr. West, General Surgery care and involvement in the patient?s care is appreciated. Dispo: Likely dc home on 01/11. Code status: Full Code as discussed with the patient who identifies friend Luda Fitch her surrogate and POA. COVID-19 COVID-19 status: Negative Result date/Date tested (Pos, Neg/Pending): 01/09/22 Time Spent With Patient Critical Care time: I spent a total of [] minutes of critical care time on this patient's care today; this time is exclusive of procedural time.
[2022-01-10] MEDS: fentaNYL 100 MCG/2 ML INJ IV (10:45)
[2022-01-10] MEDS: MIDAZOLAM 2 MG/2 ML VIAL IV (10:46)
--- NOTE | 2022-01-10 14:31 | CM.DANOTE ---
Patient is a 66 yo female who was admitted on 01/09/22 for Fever/Sickness. Pt has [facility] and [facility] for insurance and her PCP is Jes Paulson. EMR was reviewed. Per MD, pt with recent COVID booster vaccine and started developing fever and abd pain and pt admitted for ruptured appendix. Per Surgeon, pt to have drain placed today and then to be determined if further surgical intervention needed after. SW met bedside with pt and explained role and she confirms she lives in [place] alone and is active and independent at baseline, drives, does not use DME and denies any hx of HH or SNF. Pt states her DPOA is her good friend Luda Fitch and pt states Luda and Luda's spouse are currently visiting and staying with her until early Jan and are very supportive and can assist and provide transport at d/c. Pt does not anticipate any needs at d/c and preference is to get home and settled as soon as she is medically stable. Plan: SW to follow for Surgeon recommendations and r/o further surgical intervention and confirm safe plan of home with friends to assist and any further identified discharge planning needs. ROMARIO Bower Discharge Planning/Care Management Advanced directive, confirm from FAMILY Start: 01/09/22 21:44 Freq: Q24H Status: Active Protocol: Document 01/09/22 21:47 AKP (Rec: 01/09/22 21:48 AKP [id number]) Advance Directive, confirm on record Time 21:47 Person contacted Luda Fitch Copy received No CM Discharge Assessment Start: 01/10/22 14:30 Freq: Status: Active Protocol: Document 01/10/22 14:30 BF (Rec: 01/10/22 14:31 BF [id number]) Discharge Planning Assessment Assigned Customer Servicer ROMRAIO Shah DPOA/Assigned Designee Name friend Luda Fitch Advance Directives? Yes Advance Directives on File No History Provided By Patient,Medical Record Has Patient been admitted in last 30 No days? Prior Living Arrangements House Household Members none Type of transporation used prior to Drives own vehicle admit Independent with ADL's Yes Is patient alert and oriented? Yes Caregiver for Another No Barriers to Discharge No Discharge Plan Home Transportation Arrangement Friend Luda plans to provide transport home at d/c Referrals Initiated None needed Additional Comment Pending drain placement and progress Whiteboard Updated in Patient Room with Yes name and ext. # of Customer Servicer Review Status In Process Please Provide Date Initial DC 01/10/22 Assessment Was Performed Next Review Type Continued Stay Review
[2022-01-10] MEDS: KETOROLAC 30 MG/ML VIAL 15 MG IV (22:31)
[2022-01-10] MEDS: MELATONIN 3 MG TABLET 6 MG PO (23:51)
[2022-01-11 00:06] VITALS: TEMP 36.9
[2022-01-11] MEDS: SODIUM CHLORIDE 0.9% 1,000 ML 100 ML IV (01:18)
[2022-01-11] MEDS: PIPERACILLIN/TAZO 3.375 GM in SODIUM CHLORIDE 0.9% 100 ML IV (03:12)
--- NOTE | 2022-01-11 05:25 | PM.CN ---
History of Present Illness Consult details Date Patient Seen: 01/10/22 Time Patient Seen: 08:30 Chief complaint: Fevers, abd pain found to have a ruptured appendix Reason for consult: ruptured appendicitis with intra abdominal abscess Requesting provider: Roxann Daniel Creerasto Narrative: Several days of feeling unwell with fevers, anorexia, RLQ and right sided pain. CT scan in ED shows ruptured appendicitis w fecal lith. >6cm abscess with associated phlegmon. Meds Home Medications and Allergies Home Medications Medication Instructions Recorded Confirmed Type levothyroxine 75 mcg tablet See Rx Instructions PO .6 days a 11/04/18 01/09/22 History week levothyroxine 88 mcg tablet See Rx Instructions PO .one day a 11/04/18 01/09/22 History week Allergies Allergy/AdvReac Type Severity Reaction Status Date / Time taylor [TAYLOR] Allergy Intermediate blisters Verified 10/03/21 12:03 Review of Systems Review of Systems Narrative: loose stools ROS: Yes All systems reviewed with the patient and are negative except as otherwise documented Exam Vital Signs (past 8 hours): - 01/10/22 22:42 01/11/22 00:06 Temperature 99.2 F 98.4 F Pulse Rate 64 Respiratory Rate 16 Blood Pressure 119/61 Pulse Oximetry 97 Oxygen Delivery Method Room Air Oxygen Flow Rate 0 Const General: cooperative and frail appearing Nutritional Appearance: thin Orientation: alert and awake [facility] Head: normocephalic and atraumatic Eyes General: appearance normal, both eyes and all related structures Sclera: sclerae normal Neck Neck: trachea midline Chest Chest: normal inspection of the chest Resp Effort & Inspection: normal respiratory effort and able to speak in complete sentences Cardio Rate: regular rate Rhythm: regular rhythm GI Palpation: soft and guarding (right side) Skin General: elasticity normal Hair: general thinning Neuro General: patient alert, patient awake, patient oriented x3 and gait normal Cognition: normal cognition Speech: speech normal Extrem General: full ROM Psych Mental Status: mental status grossly normal Speech and Movement: speech and movement normal Judgment: judgment good Objective Labs Result Diagrams: 01/10/22 06:39 01/10/22 06:39 Labs: Laboratory Results - last 24 hr 01/10/22 01/10/22 01/10/22 06:39 06:39 06:39 WBC 11.0 RBC 3.47 L Hgb 10.8 L Hct 30.5 L MCV 87.9 MCH 31.0 MCHC 35.3 RDW 14.2 Plt Count 398 Neut % (Auto) 60.6 Lymph % (Auto) 22.9 L [place] % (Auto) 13.8 Eos % (Auto) 1.9 L Baso % (Auto) 0.8 Neut # (Auto) 6700 Lymph # (Auto) 2500 [place] # (Auto) 1500 H Eos # (Auto) 200 Baso # (Auto) 100 Sodium 137 Potassium 4.4 D Chloride 107 Carbon Dioxide 23 BUN 12 Creatinine 0.87 Estimated GFR > 60 BUN/Creatinine Ratio 13.8 Glucose 97 Calcium 8.0 L Magnesium 2.0 Total Bilirubin 0.4 AST 44 H ALT 39 H Alkaline Phosphatase 142 H Total Protein 5.6 L Albumin 2.7 L Globulin 2.9 Albumin/Globulin Ratio 0.9 L TSH 10.8 H PFSH Medical History Abnormal Pap smear of cervix Anxiety Cataracts, bilateral Cervical cancer Chicken pox Graves disease Hepatitis B Hyperthyroidism Migraines Plantar warts Renal function test abnormal Shoulder pain Skin cancer Vision disorder Surgical History Anesthesia History of hip replacement Family History Father Alcoholism Cancer of bladder Diabetes mellitus Emphysema Mental health problem Mother Alcoholism Grandmother Alzheimer's disease Grandfather Emphysema Grandmother No problems noted. Social History household members: none Tobacco & Substance Use Smoking Status: Current some day smoker Tobacco: How many years used: 48 second hand exposure: No alcohol intake: current substance use type: marijuana Assessment & Plan Assessment & Plan narrative: Ruptured appendicitis with abscess, phlegmon and fecal lith. Plan: IV antibiotics with observation, IR drain this morning, Home w drain when no systemic signs of infection with 5-7 days po antibiotic. Follow up in surgery [place] 1-2 weeks for drain removal vs evaluation. Discussed options of interval appendectomy or observation with risk of recurrent appendicitis. Timing would be 6-8 weeks. Time Spent With Patient Critical Care time: I spent a total of [] minutes of critical care time on this patient's care today; this time is exclusive of procedural time.
[2022-01-11] MEDS: LEVOTHYROXINE 75 MCG TABLET PO (05:56)
[2022-01-11 06:18] LABS: Add Manual Diff / Slide Review NO; Basophils Absolute Auto 100 /uL (0-100); Basophils Percent Auto 0.8 % (0-2); Eosinophils Absolute Auto 300 /uL (0-450); Eosinophils Percent Auto 3.1 % (2-4); Hematocrit 30.1 % (36-46); Hemoglobin 10.3 g/dL (12.0-16.0); Lymphocytes Absolute Auto 2900 /uL (1100-4500); Lymphocytes Percent Auto 32.8 % (25-40); Mean Corpuscular HGB Conc 34.3 % (30-36); Mean Corpuscular Hemoglobin 30.3 PG (26-34); Mean Corpuscular Volume 88.3 fL (80-100); Monocytes Absolute Auto 900 /uL (0-900); Monocytes Percent Auto 9.7 % (3-14); Neutrophils Absolute Auto 4700 /uL (1500-7000); Neutrophils Percent Auto 53.6 % (50-75); Platelet Count 422 X10^3/uL (150-400); Red Blood Cell Count 3.41 X10^6/uL (4.0-5.2); Red Cell Distribution Width 13.8 % (11.6-14.8); White Blood Cell Count 8.8 X10^3/uL (4.5-11.0)
[2022-01-11 06:20] VITALS: BP 111/67; PULSE 61; RESP 16; TEMP 36.6; O2SAT 99
[2022-01-11 06:25] LABS: Alanine Aminotransferase 39 IU/L (<35); Albumin 2.6 g/dL (3.5-5.0); Albumin Globulin Ratio 0.9 (1.0-2.8); Alkaline Phosphatase 142 U/L (38-126); Aspartate Aminotransferase 41 IU/L (14-36); Bilirubin Total 0.2 mg/dL (0.2-1.3); Blood Urea Nitrogen 12 mg/dL (7-17); Calcium 7.6 mg/dL (8.4-10.2); Carbon Dioxide 25 mmol/L (22-32); Chloride 110 mmol/L (98-107); Estimated Glomerular Filt Rate > 60 mL/min (>60); Globulin 2.9 g/dL (1.7-4.1); Glucose 98 mg/dL (80-110); HEMOLYSIS < 15 (0-50); Sodium 140 mmol/L (137-145); Total Protein 5.5 g/dL (6.3-8.2)
[2022-01-11 07:00] VITALS: O2SAT 99
--- NOTE | 2022-01-11 10:01 | PM.DS.1 ---
History of Present Illness History of Present Illness Date Patient Seen: 01/11/22 Time Patient Seen: 10:01 Chief complaint: Fevers, abd pain found to have a ruptured appendix Narrative: Heather Souza is a 66 y.o. female with hypothyroidism had received the new COVID vaccine on 01/01 and was followed by the next week of fevers with a Tmax of 102.2. She had been self treating her symptoms with tylenol. She initially had one episode of sharp internal abdominal pain she stated felt like menstrual cramps, describing it like as though a knife was cutting though from inside. She decided to present with persistent fevers.? She has had little stool output because she has not felt like eating. Denies nausea or vomiting, dyspepsia, diarrhea or dysurea. CT of the abdomen identified a fluid collection adjacent to the cecum measuring 6 by 3 x 2 cm with an estimated volume of 38 cc.? Concluded findings of a ruptured appendicitis with the right lower quadrant abscess.? Patient is afebrile, blood pressure 89/49, heart rate 72, respiratory rate 18, oxygen saturation of 94% on room air she weighs 57 kg with a BMI of 19.8.? She had a mildly elevated white count of 11.2 she is mildly anemic with a hemoglobin and hematocrit of 11.4 and 33.7, she has mild left shift of 7300, potassium is 2.9, AST 38 ALT 37 alk-phos 142 and her C reactive protein is 6.8, she has trace ketones in her urine and COVID-19 PCR is negative. FH:? Patient states both parents were alcoholic worse in the father.? Mother age 65 with lung cancer.? Father age 79 with bladder cancer but ultimately succumbed to pneumonia. Discharge Providers Provider Date of admission: 01/09/22 18:07 Discharge Date: 01/11/22 Primary care physician: Jes Paulson PA-C Consults: 01/09/22 17:14 Consult to General Surgery Stat Comment: Consulting Provider: Christine West Reason for consultation: ruptured appendicitis Has provider been notified: Yes 01/09/22 23:09 Consult to Physician Routine Comment: Consulting Provider: Christine West Reason for consultation: ruptured appy Has provider been notified: Yes 01/10/22 08:15 Consult to Interventional Radiology Routine Comment: Consulting Provider: *Temp,ED* Reason For Exam: IR drain placement Discharge provider: Arnav De Oliveira DO Summary Hospital Course Discharge Diagnosis: # Acute appendicitis with abscess, present on admission, improving patient presented with RLQ abd pain, CT abd pelvis with ruptured appendix and abscess IR placed drain on 01/10 Dr. West, general surgery following Toradol and morphine for pain given Zosyn, discharged on Augmentin x10 days f/u abscess cultures # Hypothyroidism, chronic Continue home doses of levothyroxine Hospital Course: Patient admitted for RLQ abd pain and found to have ruptured appendicitis with abscess on CT abd. Gen surg consulted who recommended IR to place drain for abscess drainage which was completed on 01/10. Patient's fevers and leukocytosis resolved. Was on Zosyn for 2 days then discharged home per gen surg recs on po Augmentin x10 days. Patient will have home health setup to help with drain management at home. She will f/u with gen surg clinic in 1-2 weeks for drain removal and appendectomy to be scheduled in 6-8 weeks. Time Spent with Patient Time spent: Greater than 30 minutes Exam Vital Signs (past 8 hours): - 01/11/22 06:20 Temperature 98 F Pulse Rate 61 Respiratory Rate 16 Blood Pressure 111/67 Pulse Oximetry 99 Oxygen Delivery Method Room Air Oxygen Flow Rate 0 Narrative Exam Narrative: Gen: Alert, oriented, well-developed 66 y.o. female, NAD HEENT: normocephalic, atraumatic, conjunctiva clear, sclera non-icteric, oral mucosa pink and moist Neck: supple, full ROM, no JVD, trachea is midline Resp: Lungs CTA, non-labored breathing CV: RRR, no murmur or rubs Abd: soft, drain present on RLQ with brownish material inside, tenderness to palpation of RLQ Skin: no lesions or rashes, dry and intact Neuro: Alert and oriented X 4 w/no focal deficits. Speech clear and coherent. Extremities: moves all 4 extremities, is ambulatory Psyche: Very pleasant, normal mood and affect. Objective Labs Result Diagrams: 01/11/22 05:56 01/11/22 05:56 Labs: Laboratory Results - last 24 hr 01/11/22 01/11/22 05:56 05:56 WBC 8.8 RBC 3.41 L Hgb 10.3 L Hct 30.1 L MCV 88.3 MCH 30.3 MCHC 34.3 RDW 13.8 Plt Count 422 H Neut % (Auto) 53.6 Lymph % (Auto) 32.8 [place] % (Auto) 9.7 Eos % (Auto) 3.1 Baso % (Auto) 0.8 Neut # (Auto) 4700 Lymph # (Auto) 2900 [place] # (Auto) 900 Eos # (Auto) 300 Baso # (Auto) 100 Sodium 140 Potassium 4.0 Chloride 110 H Carbon Dioxide 25 BUN 12 Creatinine 0.80 Estimated GFR > 60 BUN/Creatinine Ratio 15.0 Glucose 98 Calcium 7.6 L Magnesium 2.0 Total Bilirubin 0.2 AST 41 H ALT 39 H Alkaline Phosphatase 142 H Total Protein 5.5 L Albumin 2.6 L Globulin 2.9 Albumin/Globulin Ratio 0.9 L PFSH Medical History Abnormal Pap smear of cervix Anxiety Cataracts, bilateral Cervical cancer Chicken pox Graves disease Hepatitis B Hyperthyroidism Migraines Plantar warts Renal function test abnormal Shoulder pain Skin cancer Vision disorder Surgical History Anesthesia History of hip replacement Family History Father Alcoholism Cancer of bladder Diabetes mellitus Emphysema Mental health problem Mother Alcoholism Grandmother Alzheimer's disease Grandfather Emphysema Grandmother No problems noted. Social History (Reviewed 01/09/22 @ 18:17 by Roxann Borjas [facility]) household members: none Smoking Status: Current some day smoker Tobacco: How many years used: 48 second hand exposure: No alcohol intake: current substance use type: marijuana Discharge Plan Discharge Plan Patient Disposition: Home Provider Discharge Comment: You were admitted for a ruptured appendicitis and a drain was placed. You will need to flush the drain yourself with 10-20 mL of saline twice a day to prevent from clogging. We have placed you on an antibiotic called Augmentin for 10 days and will also have home health come out to help with your drain. You should follow-up in surgery Clinic in 1-2 weeks. Discharge orders & Medications Prescriptions: New amoxicillin-pot clavulanate 875-125 mg tablet 1 tab PO BID 10 Days Qty: 20 0RF Rx Instructions: start on evening of 01/11 hydrocodone-acetaminophen 5-325 mg tablet 1 tab PO Q4-6H PRN (Reason: pain) Qty: 30 0RF Continued levothyroxine 75 mcg tablet See Rx Instructions PO .6 days a week Label Comments: 1 tablet PO 6 days a week. Rx Instructions: Take one tablet by mouth 6 days a week. levothyroxine 88 mcg tablet See Rx Instructions PO .one day a week Label Comments: 1 tablet PO one day a week. Rx Instructions: 1 tablet by mouth on Wednesdays only. Follow up/Referrals: Jes Paulson PA-C [Primary Care Provider] - Discharge Data Primary Care Provider: Jes Paulson
--- NOTE | 2022-01-11 10:33 | CM.DPC ---
DCP Cont: made DCP aware of the need for HH services for drain care. Order placed for HH. DCP asked pt which facility she prefers. Pt had no preference. [facility] was decided upon as [facility] is on DCP rotation calendar. Lio @ [facility] was called and made aware of pt needs. Lio states that nursing care can begin on Friday of next week. [facility] is scanned in. [facility] has access to [facility]. Pt made aware of the coordination. Pt aware that [facility] will contact her. Pt thankful for setting up home health. P: Pt to discharge home today via friend POV. Estefany Mo RN/DCP
--- NOTE | 2022-01-11 10:59 | PM.PN.1 ---
Subjective Subjective Date Patient Seen: 01/11/22 Time Patient Seen: 11:01 Interval history: 66-year-old woman with appendicitis perforated with abscess underwent percutaneous drainage yesterday. Feels well today minimal pain tolerating diet. No fever or leukocytosis Exam Vital Signs (past 8 hours): - 01/11/22 06:20 Temperature 98 F Pulse Rate 61 Respiratory Rate 16 Blood Pressure 111/67 Pulse Oximetry 99 Oxygen Delivery Method Room Air Oxygen Flow Rate 0 Narrative Exam Narrative: general adult woman alert oriented no acute distress abdomen soft minimally tender. Drain right lower quadrant scant purulent drainage Objective Labs Result Diagrams: 01/11/22 05:56 01/11/22 05:56 Labs: Laboratory Results - last 24 hr 01/11/22 01/11/22 05:56 05:56 WBC 8.8 RBC 3.41 L Hgb 10.3 L Hct 30.1 L MCV 88.3 MCH 30.3 MCHC 34.3 RDW 13.8 Plt Count 422 H Neut % (Auto) 53.6 Lymph % (Auto) 32.8 [place] % (Auto) 9.7 Eos % (Auto) 3.1 Baso % (Auto) 0.8 Neut # (Auto) 4700 Lymph # (Auto) 2900 [place] # (Auto) 900 Eos # (Auto) 300 Baso # (Auto) 100 Sodium 140 Potassium 4.0 Chloride 110 H Carbon Dioxide 25 BUN 12 Creatinine 0.80 Estimated GFR > 60 BUN/Creatinine Ratio 15.0 Glucose 98 Calcium 7.6 L Magnesium 2.0 Total Bilirubin 0.2 AST 41 H ALT 39 H Alkaline Phosphatase 142 H Total Protein 5.5 L Albumin 2.6 L Globulin 2.9 Albumin/Globulin Ratio 0.9 L PFSH Medical History Abnormal Pap smear of cervix Anxiety Cataracts, bilateral Cervical cancer Chicken pox Graves disease Hepatitis B Hyperthyroidism Migraines Plantar warts Renal function test abnormal Shoulder pain Skin cancer Vision disorder Surgical History Anesthesia History of hip replacement Family History Father Alcoholism Cancer of bladder Diabetes mellitus Emphysema Mental health problem Mother Alcoholism Grandmother Alzheimer's disease Grandfather Emphysema Grandmother No problems noted. Social History household members: none Smoking Status: Current some day smoker Tobacco: How many years used: 48 second hand exposure: No alcohol intake: current substance use type: marijuana Assessment & Plan Assessment & Plan narrative: 66-year-old woman with perforated appendicitis and abscess status post IR drain placement. No systemic signs of illness drain is functioning appropriately. May discharge home on for 10 days of Augmentin with drain in place should flush with 10-20 mL of saline twice daily. Follow up in surgical clinic in 1-2 weeks for re-evaluation Time Spent With Patient Critical Care time: I spent a total of [] minutes of critical care time on this patient's care today; this time is exclusive of procedural time.
--- NOTE | 2022-01-11 12:39 | CM.DPNOTE ---
Sent referral to all [facility] SNF's except [facility]. Devika Tyson CM Assist.
--- NOTE | 2022-01-11 13:33 | PC.NURSE ---
12:40 Educated pt and friend Luda about how to flush IR abscess drain with normal saline. Provided educational packet on how to flush IR abscess drain.
== END 2022-01-11 13:00 | disposition home health service (06) | DRG 373 ==
LOC: ED 15:47 → AC 18:24
PROVIDERS: Emergency Medicine; Nurse Practitioner Family; Admitting Provider Neuromusculoskeletal Medicine, Sports Medicine; Emergency Provider Nurse Practitioner Critical Care Medicine; PCP Physician Assistant; Referring Provider Nurse Practitioner Critical Care Medicine; Visit Provider Neuromusculoskeletal Medicine, Sports Medicine
DX: K35.33 Acute appendicitis with perforation, localized peritonitis, and gangrene, with abscess (principal); E87.6 Hypokalemia; E03.9 Hypothyroidism, unspecified; Z20.822 Contact with and (suspected) exposure to COVID-19
CPT/HCPCS: 36415; 49406; 74177; 80053; 81001; 81003; 83690; 83735; 84145; 84443; 85025; 85610; 86140; 87070; 87075; 87077; 87186; 87205; 87635; 93005; 93010; 96365; 96366; 96375; 99232; 99284; C9803; J1644; J1885; J2250; J2543; J3010; Q9967

== ENCOUNTER → 2022-01-23 09:10 | Outpatient (CLI) | payer MEDICARE, OTHER, SELFPAY ==
[2022-01-09 21:33] VITALS: BMI 19.8
--- NOTE | 2022-01-23 09:13 | DI.CT.S_ITS ---
PROCEDURE: CT ABDOMEN PELVIS W CON INDICATIONS: f/u appendiceal abcess TECHNIQUE: After the administration of oral and intravenous contrast, axial sections were acquired from the lung bases to the pubic symphysis. Coronal and sagittal reformats were performed. For radiation dose reduction, the following was used: automated exposure control, adjustment of mA and/or kV according to patient size. COMPARISON:[facility], CT, CT DRAIN APPENDICEAL ABSCESS, 01/10/2022, 9:28. [facility], CT, CT ABDOMEN PELVIS W CON, 01/09/2022, 16:01. FINDINGS: Image quality: Excellent. Lung bases: Mild bibasilar atelectasis. Heart: No significant findings. ABDOMEN: Liver: There is diffuse hypoattenuation of the liver parenchyma relative to the spleen compatible with hepatic steatosis.. Gallbladder: Gallbladder is decompressed but otherwise unremarkable. Biliary ducts: Unremarkable. Pancreas: Unremarkable. Spleen: Unremarkable. Adrenal Glands: Unremarkable. Kidneys and Ureters: Unremarkable. No evidence for obstructive uropathy. No perinephric stranding. Stomach and Bowel: Stomach, small bowel loops, and colon are unremarkable. Persistent but decreased degree of now minimal inflammatory changes of the right lower quadrant near the appendix. There is a right lower quadrant pigtail drainage catheter which appears unchanged in positioning. No surrounding organized fluid collection seen. Peritoneum: No abnormal intraperitoneal fluid. No free air. Ventral Wall: Tiny fat containing umbilical hernia without acute inflammation. Abdominal Nodes: No retroperitoneal or mesenteric adenopathy by size criteria. Vessels: Aorta and inferior vena cava are normal in size. Scattered atherosclerotic calcifications. PELVIS: Pelvic Organs: Unremarkable. Bladder: Unremarkable. Pelvic Nodes: No enlarged lymph nodes. Miscellaneous: No inguinal hernias are seen. Bones: Status post bilateral total hip arthroplasty. Multilevel spondylosis, unchanged. Findings are again most severe at L4-5 and L5-S1. Stable appearance of moderate spinal canal stenosis at L4-5. No acute compression fracture. IMPRESSION: Stable positioning of right lower quadrant pigtail drainage catheter. No evidence for persistent or enlarging abscess. Persistent but decreased degree of right lower quadrant inflammatory changes. Other chronic findings as above, stable. Dictated by: Saeid Jenkins M.D. on 01/23/2022 at 13:37 Approved by: Saeid Jenkins M.D. on 01/23/2022 at 13:53
== END ==
PROVIDERS: PCP Physician Assistant; Referring Provider Surgery; Visit Provider Surgery
DX: K35.33 Acute appendicitis with perforation, localized peritonitis, and gangrene, with abscess (principal)
CPT/HCPCS: 74177; Q9967

== ENCOUNTER 2022-02-21 06:51 | Observation (INO) | payer MEDICARE, OTHER, SELFPAY ==
[2022-01-09 21:33] VITALS: BMI 19.8
[2022-02-21] VITALS (22 sets, daily range): BP systolic 94–141; BP diastolic 39–70; PULSE 53–72; RESP 16–18; TEMP 35.6–36.5; O2SAT 94–100; BMI 19.5; BMI 19.9
--- NOTE | 2022-02-21 06:58 | ED.ABDPAIN ---
HPI - Abdominal Pain General Chief Complaint: Abdominal Pain Stated Complaint: appendix Time Seen by Provider: 02/21/22 06:56 History of Present Illness HPI narrative: 66-year-old female former smoker with a history of hypothyroid and recent appendicitis with associated abscess, surgical intervention and eventual percutaneous drain presents with a chief complaint severe right lower quadrant pain. She had evaluation by General surgery on January [address] confirming resolution of abscess. She went to bed in her normal state of health and awoke this morning with severe right lower quadrant pain that reminds her of her appendicitis. It was 10/10, sharp and stabbing and not only in the right lower quadrant but reached across her lower abdomen and some ways as well. She was nauseated but denies any vomiting. She is had no fever or chills. She denies chest pain, shortness of breath. She has had no runny nose, sore throat or cough. Related Data Home Medications Medication Instructions Recorded Confirmed levothyroxine 75 mcg tablet See Rx Instructions PO .6 days a 11/04/18 01/25/22 week levothyroxine 88 mcg tablet See Rx Instructions PO .one day a 11/04/18 01/25/22 week Previous Rx's Medication Instructions Recorded hydrocodone 5 mg-acetaminophen 325 1 tab PO Q4-6H PRN pain #30 tabs 01/11/22 mg tablet Allergies Allergy/AdvReac Type Severity Reaction Status Date / Time taylor [TAYLOR] Allergy Intermediate blisters Verified 01/25/22 10:23 Review of Systems Review of Systems Narrative: GENERAL: Denies chills, fatigue, malaise, fever, sweats. HEENT: Denies sinus pain, ear pain, sore throat, difficulty swallowing, dizziness. RESPIRATORY: Denies dyspnea, cough, wheezing, hemoptysis, sputum. CARDIOVASCULAR: Denies chest pain, palpitations, orthopnea, edema, GASTROINTESTINAL: See HPI : Denies dysuria, frequency, incontinence, hematuria, urinary retention. MUSCULOSKELETAL: denies weakness, joint pain, or bony pain SKIN: Denies rash, skin lesions, or other NEUROLOGIC: Denies weakness, headache, numbness, change in speech, confusion, seizures, incoordination. PSYCHIATRIC: No concerning psychosocial issues. 12 point review of systems is negative except for those stated above Patient History Medical History (Updated 02/21/22 @ 11:54 by Robbi Prescott DO) Abnormal Pap smear of cervix Anxiety Cataracts, bilateral Cervical cancer Chicken pox Graves disease Hepatitis B Hyperthyroidism Migraines Plantar warts Renal function test abnormal Shoulder pain Skin cancer Vision disorder Surgical History Anesthesia History of hip replacement Family History Father Alcoholism Cancer of bladder Diabetes mellitus Emphysema Mental health problem Mother Alcoholism Grandmother Alzheimer's disease Grandfather Emphysema Grandmother No problems noted. Social History marital status: unmarried,single household members: none lives independently: Yes occupational status: previously employed Smoking Status: Former smoker Tobacco: How many years used: 48 second hand exposure: No alcohol intake: current substance use type: marijuana Smoking Status: Former smoker alcohol intake frequency: holidays/special occasions only Substance Use Type: marijuana Exam Narrative Exam Narrative: GENERAL: [66] year old patient appears stated age. Well-developed patient, in mild distress. HEAD: Atraumatic. Normocephalic. EYES: Pupils equal round and reactive. Extraocular motions intact. No scleral icterus. No injection or drainage. ENT: Nose without bleeding, purulent drainage. Throat without erythema, tonsillar hypertrophy or exudate. Airway patent. NECK: Trachea midline. Non tender CARDIOVASCULAR: Regular rate and rhythm without murmurs, gallops, or rubs. RESPIRATORY: Clear to auscultation. Breath sounds equal bilaterally. No wheezes, rales, or rhonchi. GASTROINTESTINAL: Abdomen soft, non-tender, nondistended. Bowel sounds present in all 4 quadrants EXTREMITIES: No edema or joint tenderness. BACK: Nontender without deformity or crepitance. No flank tenderness. NEURO: AOx3. SKIN: No rash or erythema of visible areas Initial Vital Signs Initial Vital Signs: Vital Signs Temperature 96.1 F L 02/21/22 06:58 Pulse Rate 71 02/21/22 06:58 Respiratory Rate 18 02/21/22 06:58 Blood Pressure 141/70 H 02/21/22 06:58 Pulse Oximetry 99 02/21/22 06:58 Oxygen Delivery Method 02/21/22 06:58 Course Orders Ordered: ED Orders 02/21/22 07:23 Complete Blood Count AUTO DIFF Stat Comprehensive Metabolic Panel Stat Lactate (Lactic Acid) Stat Lipase Stat 02/21/22 08:46 CT abdomen pelvis w con Stat 02/21/22 11:35 COVID19 -Nasal RAPID/Pre-Proc Stat Sodium Chloride (Normal Saline 0.9%) 1,000 mls @ 150 mls/hr IV CONT MIRI Last Infusion: 02/21/22 10:26 Dose: 0 mls/hr Documented By: Admin: 02/21/22 07:41 Dose: 150 mls/hr Documented By: JANICE Discontinued Medications Hydromorphone HCl (Hydromorphone 0.5 Mg Inj) 0.5 mg IV NOW ONE Stop: 02/21/22 07:29 Last Admin: 02/21/22 07:41 Dose: 0.5 mg Documented By: JANICE Piperacillin Sod/Tazobactam (Sod 4.5 gm/ Sodium Chloride) 100 mls @ 200 mls/hr IV NOW ONE Stop: 02/21/22 11:36 Ondansetron HCl (Ondansetron 4 Mg/2 Ml Inj) 4 mg IV NOW ONE Stop: 02/21/22 07:29 Last Admin: 02/21/22 07:41 Dose: 4 mg Documented By: JANICE Consultations Consultation #1: Discussed with on-call surgery, recommend repeat CT. Consultation #2: Upon completion of CT a called surgery back and there discussing him on themselves how to proceed and will call back Vital Signs Vital signs: Vital Signs - 8 hr 02/21/22 06:58 02/21/22 07:43 02/21/22 07:44 Temperature 96.1 F L Pulse Rate 71 56 L Respiratory Rate 18 Blood Pressure 141/70 H 115/55 L Pulse Oximetry 99 100 Oxygen Delivery Method Room Air 02/21/22 07:44 02/21/22 08:00 02/21/22 08:00 Temperature Pulse Rate 56 L 56 L Respiratory Rate Blood Pressure 105/57 L Pulse Oximetry 99 97 Oxygen Delivery Method 02/21/22 08:20 02/21/22 08:20 02/21/22 08:30 Temperature Pulse Rate 61 59 L Respiratory Rate Blood Pressure 110/56 L Pulse Oximetry 98 97 Oxygen Delivery Method 02/21/22 08:40 02/21/22 08:40 02/21/22 09:01 Temperature Pulse Rate 57 L 71 Respiratory Rate Blood Pressure 100/51 L Pulse Oximetry 99 98 Oxygen Delivery Method 02/21/22 09:20 02/21/22 09:20 02/21/22 09:30 Temperature Pulse Rate 59 L 60 Respiratory Rate Blood Pressure 103/56 L Pulse Oximetry 98 96 Oxygen Delivery Method 02/21/22 09:40 02/21/22 09:40 02/21/22 10:00 Temperature Pulse Rate 58 L Respiratory Rate Blood Pressure 105/53 L 111/56 L Pulse Oximetry 97 Oxygen Delivery Method 02/21/22 10:00 02/21/22 10:20 02/21/22 10:20 Temperature Pulse Rate 63 59 L Respiratory Rate Blood Pressure 113/51 L Pulse Oximetry 99 96 Oxygen Delivery Method 02/21/22 10:30 02/21/22 10:40 02/21/22 10:40 Temperature Pulse Rate 56 L 53 L Respiratory Rate Blood Pressure 104/52 L Pulse Oximetry 98 98 Oxygen Delivery Method 02/21/22 11:00 02/21/22 11:00 Temperature Pulse Rate 56 L Respiratory Rate Blood Pressure 105/56 L Pulse Oximetry 96 Oxygen Delivery Method MDM - Abdominal Pain Lab Data Result diagrams: 02/21/22 07:23 02/21/22 07:23 Labs: Lab Results 02/21/22 02/21/22 02/21/22 Range/Units 07:23 07:23 07:23 WBC 5.2 (4.5-11.0) X10^3/uL RBC 4.45 (4.0-5.2) X10^6/uL Hgb 13.1 (12.0-16.0) g/dL Hct 39.7 (36-46) % MCV 89.1 (80-100) fL MCH 29.5 (26-34) PG MCHC 33.1 (30-36) % RDW 14.3 (11.6-14.8) % Plt Count 340 (150-400) X10^3/uL Neut % (Auto) 34.8 L (50-75) % Lymph % (Auto) 53.7 H (25-40) % Wells % (Auto) 6.4 (3-14) % Eos % (Auto) 4.3 H (2-4) % Baso % (Auto) 0.8 (0-2) % Neut # (Auto) 1800 (5070-1181) /uL Lymph # (Auto) 2800 (5423-3514) /uL Wells # (Auto) 300 (0-900) /uL Eos # (Auto) 200 (0-450) /uL Baso # (Auto) 0 (0-100) /uL Sodium 141 (137-145) mmol/L Potassium 3.7 (3.4-5.1) mmol/L Chloride 103 (98-107) mmol/L Carbon Dioxide 24 (22-32) mmol/L BUN 16 (7-17) mg/dL Creatinine 0.90 (0.52-1.04) mg/dL Estimated GFR > 60 (>60) mL/min BUN/Creatinine Ratio 17.8 (6-22) Glucose 137 H (80-110) mg/dL Lactate 2.4 H (0.7-2.1) mmol/L Calcium 9.7 (8.4-10.2) mg/dL Total Bilirubin 0.7 (0.2-1.3) mg/dL AST 27 (14-36) IU/L ALT 20 (<35) IU/L Alkaline Phosphatase 60 (38-126) U/L Total Protein 8.0 (6.3-8.2) g/dL Albumin 4.6 (3.5-5.0) g/dL Globulin 3.4 (1.7-4.1) g/dL Albumin/Globulin Ratio 1.4 (1.0-2.8) Lipase 95 (23-300) U/L 02/21/22 Range/Units 10:24 WBC (4.5-11.0) X10^3/uL RBC (4.0-5.2) X10^6/uL Hgb (12.0-16.0) g/dL Hct (36-46) % MCV (80-100) fL MCH (26-34) PG MCHC (30-36) % RDW (11.6-14.8) % Plt Count (150-400) X10^3/uL Neut % (Auto) (50-75) % Lymph % (Auto) (25-40) % Wells % (Auto) (3-14) % Eos % (Auto) (2-4) % Baso % (Auto) (0-2) % Neut # (Auto) (7585-4176) /uL Lymph # (Auto) (3522-1963) /uL Wells # (Auto) (0-900) /uL Eos # (Auto) (0-450) /uL Baso # (Auto) (0-100) /uL Sodium (137-145) mmol/L Potassium (3.4-5.1) mmol/L Chloride (98-107) mmol/L Carbon Dioxide (22-32) mmol/L BUN (7-17) mg/dL Creatinine (0.52-1.04) mg/dL Estimated GFR (>60) mL/min BUN/Creatinine Ratio (6-22) Glucose (80-110) mg/dL Lactate 0.5 L (0.7-2.1) mmol/L Calcium (8.4-10.2) mg/dL Total Bilirubin (0.2-1.3) mg/dL AST (14-36) IU/L ALT (<35) IU/L Alkaline Phosphatase (38-126) U/L Total Protein (6.3-8.2) g/dL Albumin (3.5-5.0) g/dL Globulin (1.7-4.1) g/dL Albumin/Globulin Ratio (1.0-2.8) Lipase (23-300) U/L Point of care testing: Urine Dip Bedside Urine Glucose Negative Bedside Urine Bilirubin - Negative Bedside Urine Ketone - Negative Urine Specific [place] 1.01 Bedside Urine Occult Blood - Negative Bedside Urine pH 7.0 Bedside Urine Protein - Negative Bedside Urine Urobilinogen +/- 1mg Bedside Urine Nitrite - Negative Bedside Urine Leukocytes - Negative Esterase Imaging Data CT scan - abdomen/pelvis: Radiologist's Impression: Close Abdomen/Pelvis CT (Signed) Mo Johnson - 02/21/22 Launch?[address] [address] [address] Scan Report Signed Patient: Heather Souza MR#: [id number] : 1955 Acct:[id number] Age/Sex: 66 / F Date of Service: 02/21/22 Loc: ED Accession Number: [id number] ?? Procedure: CT abdomen pelvis w con Ordering Provider: Robbi Prescott D.O. PROCEDURE:? CT ABDOMEN PELVIS W CON ? INDICATIONS:? RLQ pain, recent ruptured appy ? TECHNIQUE:? After the administration of oral and IV contrast, axial sections were acquired from the lung bases to the pubic symphysis.? Coronal and sagittal reformats were performed.? For radiation dose reduction, the following was used:? automated exposure control, adjustment of mA and/or kV according to patient size. ? COMPARISON:? [facility], CT, CT ABDOMEN PELVIS W CON, 01/09/2022, 16:01.? [facility], CT, CT ABDOMEN PELVIS W CON, 01/23/2022, 11:14. ? FINDINGS:? Image quality:? Excellent.? ? Lung bases:? Atelectasis.? No pleural effusion. Heart:? No significant findings. ? ? ABDOMEN: Liver:? Focal fatty infiltration at the falciform ligament. Gallbladder:? Not distended. Biliary ducts:? Unremarkable.? ? Pancreas:? Unremarkable.? ? Spleen:? Unremarkable.? ? Adrenal Glands:? Unremarkable.? ? Kidneys and Ureters:? No hydronephrosis.? Small cortical hypodensities which are too small to further characterize but likely benign cysts and are unchanged. ? Stomach and Bowel:? There is inflammatory change about the distal appendix posterior medial to the ascending colon, ().? The percutaneous drain has been removed.? There is no loculated fluid collection appreciated.? The appendix measures 1 cm in diameter, ().? No extraluminal gas. ? No small bowel obstruction.? No significant diverticulosis. Peritoneum:? No abnormal intraperitoneal fluid.? No free air.? ? Ventral Wall: ? No hernia.? Abdominal Nodes:? No retroperitoneal or mesenteric adenopathy by size criteria.? Vessels:? Aorta and inferior vena cava are normal in size.? Moderate calcified plaque.? ? PELVIS: Pelvic Organs:? Anteverted uterus.? No free fluid.? ? Bladder:? Unremarkable.? ? Pelvic Nodes: No enlarged lymph nodes.? Miscellaneous: No inguinal hernias are seen. ? ? ? Bones:? No suspicious lesion.? DDD.? Bilateral hip arthroplasties.? Beam hardening artifact. ? ? IMPRESSION:? 1. Mild inflammatory change at the distal appendix.? No recurrent fluid collection.? The percutaneous drainage catheter has been removed. ? 2. No small bowel obstruction.? No free air. ? ? Dictated by: Mo Johnson M.D. on 02/21/2022 at 8:26 ? ? Approved by: Mo Johnson M.D. on 02/21/2022 at 8:39 ? [facility] Narrative Medical decision making narrative: Patient presents with significant right lower quadrant pain which was largely initially improved with above-stated therapies but pain is returning, she is nauseated and has early appendicitis noted on imaging. Call placed to on-call surgeon who will admit to her service, recommends IV fluids, antibiotics, pain control, NPO at midnight and will discuss with patient's own surgeon about who will likely take her to the operating room tomorrow. Discharge Plan Departure Patient Disposition: Admitted as Observation Clinical Impression: Acute appendicitis Admit Date/Time: 02/21/22 11:39 Admit Provider: Ju Wood
[2022-02-21] MEDS: SODIUM CHLORIDE 0.9% 1,000 ML 150 ML IV (07:41)
[2022-02-21] MEDS: ONDANSETRON 4 MG/2 ML INJ IV (07:41)
[2022-02-21] MEDS: HYDROMORPHONE 0.5 MG INJ IV (07:41)
[2022-02-21 07:46] LABS: Alanine Aminotransferase 20 IU/L (<35); Albumin 4.6 g/dL (3.5-5.0); Albumin Globulin Ratio 1.4 (1.0-2.8); Alkaline Phosphatase 60 U/L (38-126); Aspartate Aminotransferase 27 IU/L (14-36); BUN Creatinine Ratio 17.8 (6-22); Bilirubin Total 0.7 mg/dL (0.2-1.3); Blood Urea Nitrogen 16 mg/dL (7-17); Calcium 9.7 mg/dL (8.4-10.2); Carbon Dioxide 24 mmol/L (22-32); Chloride 103 mmol/L (98-107); Estimated Glomerular Filt Rate > 60 mL/min (>60); Globulin 3.4 g/dL (1.7-4.1); Glucose 137 mg/dL (80-110); HEMOLYSIS 24 (0-50); Lipase 95 U/L (23-300); Potassium 3.7 mmol/L (3.4-5.1); Sodium 141 mmol/L (137-145)
[2022-02-21 07:47] LABS: Lactate (Lactic Acid) 2.4 mmol/L (0.7-2.1)
[2022-02-21 07:48] LABS: Add Manual Diff / Slide Review NO; Basophils Absolute Auto 0 /uL (0-100); Basophils Percent Auto 0.8 % (0-2); Eosinophils Absolute Auto 200 /uL (0-450); Eosinophils Percent Auto 4.3 % (2-4); Hematocrit 39.7 % (36-46); Hemoglobin 13.1 g/dL (12.0-16.0); Lymphocytes Absolute Auto 2800 /uL (1100-4500); Lymphocytes Percent Auto 53.7 % (25-40); Mean Corpuscular HGB Conc 33.1 % (30-36); Mean Corpuscular Hemoglobin 29.5 PG (26-34); Mean Corpuscular Volume 89.1 fL (80-100); Monocytes Absolute Auto 300 /uL (0-900); Monocytes Percent Auto 6.4 % (3-14); Neutrophils Absolute Auto 1800 /uL (1500-7000); Neutrophils Percent Auto 34.8 % (50-75); Platelet Count 340 X10^3/uL (150-400); Red Blood Cell Count 4.45 X10^6/uL (4.0-5.2); Red Cell Distribution Width 14.3 % (11.6-14.8); White Blood Cell Count 5.2 X10^3/uL (4.5-11.0)
--- NOTE | 2022-02-21 08:46 | DI.CT.S_ITS ---
PROCEDURE: CT ABDOMEN PELVIS W CON INDICATIONS: RLQ pain, recent ruptured appy TECHNIQUE: After the administration of oral and IV contrast, axial sections were acquired from the lung bases to the pubic symphysis. Coronal and sagittal reformats were performed. For radiation dose reduction, the following was used: automated exposure control, adjustment of mA and/or kV according to patient size. COMPARISON: [facility], CT, CT ABDOMEN PELVIS W CON, 01/09/2022, 16:01. [facility], CT, CT ABDOMEN PELVIS W CON, 01/23/2022, 11:14. FINDINGS: Image quality: Excellent. Lung bases: Atelectasis. No pleural effusion. Heart: No significant findings. ABDOMEN: Liver: Focal fatty infiltration at the falciform ligament. Gallbladder: Not distended. Biliary ducts: Unremarkable. Pancreas: Unremarkable. Spleen: Unremarkable. Adrenal Glands: Unremarkable. Kidneys and Ureters: No hydronephrosis. Small cortical hypodensities which are too small to further characterize but likely benign cysts and are unchanged. Stomach and Bowel: There is inflammatory change about the distal appendix posterior medial to the ascending colon, (2/43). The percutaneous drain has been removed. There is no loculated fluid collection appreciated. The appendix measures 1 cm in diameter, (2/48). No extraluminal gas. No small bowel obstruction. No significant diverticulosis. Peritoneum: No abnormal intraperitoneal fluid. No free air. Ventral Wall: No hernia. Abdominal Nodes: No retroperitoneal or mesenteric adenopathy by size criteria. Vessels: Aorta and inferior vena cava are normal in size. Moderate calcified plaque. PELVIS: Pelvic Organs: Anteverted uterus. No free fluid. Bladder: Unremarkable. Pelvic Nodes: No enlarged lymph nodes. Miscellaneous: No inguinal hernias are seen. Bones: No suspicious lesion. DDD. Bilateral hip arthroplasties. Beam hardening artifact. IMPRESSION: 1. Mild inflammatory change at the distal appendix. No recurrent fluid collection. The percutaneous drainage catheter has been removed. 2. No small bowel obstruction. No free air. Dictated by: Mo Johnson M.D. on 02/21/2022 at 8:26 Approved by: Mo Johnson M.D. on 02/21/2022 at 8:39
[2022-02-21 09:37] LABS: Reflexed Lactate in 2 Hours Y
[2022-02-21 10:40] LABS: Lactate 2HR (Lactic Acid Rflx) 0.5 mmol/L (0.7-2.1)
[2022-02-21] MEDS: PIPERACILLIN/TAZO 4.5 GM in SODIUM CHLORIDE 0.9% 100 ML IV (11:53)
[2022-02-21 13:46] LABS: COVID19 -Nasal RAPID Negative (Negative)
[2022-02-21] MEDS: SODIUM CHLORIDE 0.45% 1,000 ML 75 ML IV (14:36)
--- NOTE | 2022-02-21 14:53 | PC.NURSE ---
Admit note: Patient admitted to room 219. Awake, alert, oriented and pleasantly cooperative. IVF and SCDs initiated on arrival. Oriented to room, environment, and plan of care. Call light, phone, and belongings within reach. NPO after midnight.
[2022-02-21] MEDS: PIPERACILLIN/TAZO 3.375 GM in SODIUM CHLORIDE 0.9% 100 ML IV ×2 (16:05→23:55)
[2022-02-21] MEDS: ACETAMINOPHEN 325 MG TABLET 975 MG PO ×2 (16:06→21:37)
[2022-02-21] MEDS: IBUPROFEN 600 MG TABLET PO ×2 (16:06→21:38)
[2022-02-21] MEDS: ENOXAPARIN 40 MG/0.4 ML SYRINGE SUBCUT (21:40)
[2022-02-22] VITALS (15 sets, daily range): BP systolic 95–126; BP diastolic 35–66; PULSE 57–86; RESP 13–25; TEMP 36.4–37; O2SAT 92–100; BMI 19.9
--- NOTE | 2022-02-22 | PATH_ITS ---
[facility] Accession Number: [id number] . 01 Material submitted: . appendix - APPENDIX . 01 Diagnosis: Appendix, Appendectomy: Acute appendicitis. One benign lymph node. MRV 02/28/2022 1410 Local . 01 Electronically signed: . Lexi Rodriguez MD, Pathologist NPI- [id number] . 01 Gross description: . The specimen is received in formalin labeled with the patient's name, , and appendix, and consists of multiple fragments of hummel soft tissue and yellow lobulated adipose tissue aggregating to 6.3 x 5.8 x 1.5 cm. Two fragments are possibly consistent with tubular structure; however, no definitive vermiform appendix or distal tip is identified. One tubular fragment has a staple line at both ends which are removed, and the ends are differentially inked blue and green. Sectioning this fragment reveals a patent lumen that ranges from 0.3 to 0.5 cm in diameter with hummel intact paiz and smooth intact serosa. A second fragment has a single staple line which is removed and this area is inked orange. Sectioning reveals hummel velvety folded mucosa with pale hummel firm paiz that measure 0.3 cm thick. The remaining brown to yellow soft tissue has no identifiable lumen or mucosa. Blueprint Machine Operator sections are submitted as follows: . A1: Blueprint Machine Operator blue and green fragment. A2: Entire orange fragment. A3: Blueprint Machine Operator brown and yellow soft tissue. ([id number]) /MRV 02/26/2022 1757 Local . 01 Pathologist provided ICD-10: K35.80 . 01 CPT . 751772 Specimen Comment: A courtesy copy of this report has been sent to [facility] Pathology Performed at: [address], [place], [place] [id number] MD Reagan York MD Phone: [phone]
[2022-02-22] MEDS: SODIUM CHLORIDE 0.45% 1,000 ML 75 ML IV (04:20)
[2022-02-22] MEDS: IBUPROFEN 600 MG TABLET PO ×2 (08:55→13:52)
[2022-02-22] MEDS: ACETAMINOPHEN 325 MG TABLET 975 MG PO ×2 (08:55→13:52)
[2022-02-22] MEDS: PIPERACILLIN/TAZO 3.375 GM in SODIUM CHLORIDE 0.9% 100 ML IV ×2 (08:56→18:26)
[2022-02-22] MEDS: ENOXAPARIN 40 MG/0.4 ML SYRINGE SUBCUT (08:56)
--- NOTE | 2022-02-22 09:08 | PM.HP.1 ---
History of Present Illness History of Present Illness Chief complaint: appendix Narrative: Ms. Davison is a pretty healthy 66-year-old female who presented with a perforated appendicitis about a month ago. She underwent a percutaneous drain at the time and antibiotic treatment and had been doing relatively well at home since then. Although she does relate that she had had some anxiety and was taking her temperature frequently overall worried about her appendix in general over the course of that time. However today she said she presented she would a sharp pain in the right lower quadrant she said the pain was similar to the type of pain she had with her appendix previously. For this reason she was pretty concerned additionally she had cold sweats she had an episode of emesis. These symptoms prompted her to present to the emergency room yesterday evening. She underwent a CT scan that showed some small amount of inflammation at the tip of her appendix overall the abscess cavity and perforation look improved on the CT. She was admitted overnight for pain control. She was given a diet yesterday and she tolerated some dinner. Patient History Medical History (Updated 02/21/22 @ 11:54 by Robbi Prescott DO) Abnormal Pap smear of cervix Anxiety Cataracts, bilateral Cervical cancer Chicken pox Graves disease Hepatitis B Hyperthyroidism Migraines Plantar warts Renal function test abnormal Shoulder pain Skin cancer Vision disorder Surgical History Anesthesia History of hip replacement Family & Social History Family History Father Alcoholism Cancer of bladder Diabetes mellitus Emphysema Mental health problem Mother Alcoholism Grandmother Alzheimer's disease Grandfather Emphysema Grandmother No problems noted. Social History: household members none Prior Living Arrangements House lives independently Yes Safety & Behavioral: Feels Safe in Current Yes Environment Been Physically Hurt or No Threatened By a Person Tobacco & Substance use: Tobacco type cannabis/marijuana Smoking Status Former smoker alcohol intake current alcohol intake frequency holiday/special occasion Substance Use Type marijuana Meds Home Medications and Allergies Home Medications Medication Instructions Recorded Confirmed Type levothyroxine 75 mcg tablet See Rx Instructions PO .6 days a 11/04/18 02/21/22 History week levothyroxine 88 mcg tablet See Rx Instructions PO .one day a 11/04/18 02/21/22 History week Allergies Allergy/AdvReac Type Severity Reaction Status Date / Time taylor [TAYLOR] Allergy Intermediate blisters Verified 01/25/22 10:23 Exam Vital Signs (past 8 hours): - 02/22/22 04:22 02/22/22 07:55 Temperature 98.0 F 97.9 F Pulse Rate 61 57 L Respiratory Rate 18 16 Blood Pressure 103/51 L 104/49 L Pulse Oximetry 94 96 Oxygen Flow Rate 0 0 Oxygen Delivery Method Room Air Oxygen Flow Rate 0 Const General: cooperative, healthy appearing and comfortable HENWA Head: normal to inspection Mouth: oral mucosae normal Eyes General: appearance normal, both eyes and all related structures Neck Neck: full ROM Resp Effort & Inspection: normal respiratory effort and able to speak in complete sentences Cardio Pulses: radial pulses present GI Inspection: normal to inspection and no scars Palpation: soft and No tender (mild TTP deep palpation RLQ) Skin General: no rashes or lesions noted Extrem General: full ROM Objective Labs Result Diagrams: 02/21/22 07:23 02/21/22 07:23 Labs: Laboratory Results - last 24 hr 02/21/22 02/21/22 10:24 11:45 Lactate 0.5 L SARS-CoV-2 (PCR) Negative Assessment & Plan Assessment and plan (1) Acute appendicitis: Status: Acute Assessment & Plan narrative: Given Ms. Souza history, and the appearance of her CT scan. It is possible she is having a recurrence of acute appendicitis. Overall after discussion with her she feels very anxious about her appendix. She would like very much to have it removed. I discussed with her the different options of proceeding with an appendectomy today versus continuing course of antibiotics and proceeding with an interval appendectomy with Dr. Mosher. At this time she understands the risks of laparoscopic appendectomy I discussed with her the risks including but not limited to bleeding infection injury to abdominal organs requiring further surgeries or hospitalizations as rare but possible. She understands these risks and feels the benefit of appendix removal outweighs these. She understands fully and would like proceed with a laparoscopic appendectomy she is NPO today and we will add her onto the OR schedule. Time Spent With Patient Critical Care time: I spent a total of [] minutes of critical care time on this patient's care today; this time is exclusive of procedural time. Quality VTE Deep Vein Thrombosis/Pulmonary Embolism Present on Admission: No
--- NOTE | 2022-02-22 11:16 | CM.DANOTE ---
DCP Assessment: Payor confirmed: Medicare & State [facility] PCP confirmed: Jes Paulson MD Pt is a 66 y.o. F who presented to the ER with a complaint of severe right lower quadrant pain. Imaging done and it was found that pt has an early appendicitis. Pt admitted to the acute care unit for further management of symptoms and possible surgery. DCP met with pt this morning to discuss discharge needs. Pt sitting up in bed watching TV. DCP introduced herself and role. Pt states she lives alone in [place] but has many good neighbors and friends to take care of her. Pt told DCP that she has a neighbor, Pham, who will pick her up from the hospital. Pt is independent at baseline and still drives POV. Pt denies DME use. No needs identified at this time. White board updated and instructed to call. Pt thankful for discussion. P: Pt to have appendetomy this afternoon. Once medically stable, pt to discharge home via friend POV. Estefany Mo RN/SALOMON Discharge Planning/Care Management CM Discharge Assessment Start: 02/22/22 07:51 Freq: Status: Active Protocol: Document 02/22/22 11:16 FRANCES (Rec: 02/22/22 11:16 FRANCES [id number]) Discharge Planning Assessment Assigned Senior Training Specialist Estefany Mo RN/SALOMON Advance Directives? Yes Advance Directives on File No History Provided By Patient,Medical Record Prior Living Arrangements House Household Members none Type of transporation used prior to Drives own vehicle admit Independent with ADL's Yes Is patient alert and oriented? Yes Discharge Plan Home Transportation Arrangement Friend Pham POV Referrals Initiated None needed Additional Comment At this time. Whiteboard Updated in Patient Room with Yes name and ext. # of Senior Training Specialist Comment Instructed to call Review Status In Process Please Provide Date Initial DC 02/22/22 Assessment Was Performed Next Review Type Continued Stay Review
[2022-02-22] MEDS: LACTATED RINGERS 1,000 ML 42 ML IV ×2 (17:31→20:29)
[2022-02-22] MEDS: BUPIVACAINE 0.5% W/ EPI (PF) 30 ML VIAL INJ (18:36)
--- NOTE | 2022-02-22 18:50 | SUR.OPER ---
Supine on padded OR bed, head on pillow, right arm secured on padded arm boards at <90 degrees abduction, Left arm padded with gel pad and tucked at side, legs uncrossed, safety belt at thigh, tape over blanket over lower legs. Gel pad under bilateral heels. Patient voided at 1810 in preop area prior to entering OR.
--- NOTE | 2022-02-22 21:08 | PM.OP.1 ---
Procedure & Clinicians Procedure: Appendectomy Same procedure as scheduled: Yes Indications: Ms. Souza is about a month after being hospitalized for a perforated appendix she had a percutaneously placed drain for an abscess which has been removed. She was doing well at home recovering and fell yesterday when she started to have right lower quadrant pain. A CT done in the emergency room showed some inflammation around the tip of her appendix and an interval resolution of the abscess previously seen. I discussed with her the risks benefits and alternatives of proceeding with a laparoscopic appendectomy including another course of antibiotics and having an interval appendectomy as planned. She would like to proceed with surgery she understands the risks including but not limited to bleeding infection need for further procedures or hospitalizations. Surgeon: Ju Wood Click Yes if Unassisted: Yes Anesthesia Type: General Operative Notes Findings: Patient was taken to the operating room and placed supine on the operating room table. A time-out was performed. General endotracheal anesthesia was induced. Bilateral SCDs were in place; her scheduled Zosyn was hung prior to making the incision. Lidocaine was used to infuse below the umbilicus, and the skin was entered with an 11 blade scalpel. This incision was carried down through the subcutaneous tissues using electrocautery to the anterior abdominal wall fascia which was grasped and elevated with Herber retractors. The abdominal fascia was entered sharply under direct visualization with an 11 blade scalpel. A finger sweep assured the correct location and the Ora trocar was placed into the abdomen. Abdomen was insufflated. Patient tolerated this well. 2 accessory trocars were placed 1 in the suprapubic and 1 in the lateral left lateral positions after infusing lidocaine around the area and into the peritoneum. The right lower quadrant was full of some inflammation and adhesive tissues. I could see the terminal ileum entering into the cecum and the cecum involved in a very thick adhered inflammatory reaction. Using a blunt dissection I tried to free the cecum somewhat from the pelvic and abdominal sidewall. I then believed that I saw the base of the appendix entering into the cecum: I dissected around this dense inflammatory tissue that appeared to be entering into the cecum and came across it with a blue load of the laparoscopic stapler. After freeing up some more of the inflammatory tissue around that area it became apparent that in fact the base of the appendix was beneath all of this and actually relatively healthy. A window was made an another blue load of the laparoscopic stapler was used to come across the base of the appendix that was clearly seen and in pretty good condition. The appendix then was followed into this inflammatory tissue that had been seen previously. It was difficult to find the tip of the appendix and I followed a structure that seemed to come out of this densely adhesive mass (the one which was adherent to the cecum prior to staple load being fired initially.) This structure dove down below the cecum into the retrocecal position and swept superiorly. After quite a lot of blunt dissection I got what I believed was the tip of the appendix out from the right lateral colic gutter. The specimen was removed in 3 separate pieces which had become dismembered during the course of the dissection, using an Endo-Catch. At this point I decided given the difficulty of the dissection that I should place a JULITA drain in the right colic gutter and under the cecum. I placed this through the 10 mm umbilical port site and removed the end from the left lateral port site under laparoscopic vision. A final inspection was done for hemostasis and security of staple lines everything looked fine. The trocars were removed under direct visualization the abdomen was desufflated. The fascia was closed with previously placed 0 Vicryl suture; skin was closed with running Monocryl and the drain was secured with a nylon drain stitch. The wounds were dressed with Steri-Strips, gauze and Tegaderm. Patient went in good condition to the postoperative care unit. EBL was minimal and there were no complications. Specimen(s): other (appendix) Complications: none Post-operative Condition: stable Disposition: PACU
[2022-02-22] MEDS: HYDROMORPHONE 2 MG INJ IV (21:16)
[2022-02-22] MEDS: ONDANSETRON 4 MG/2 ML INJ IV ×2 (21:18→22:20)
[2022-02-22] MEDS: MEPERIDINE 50 MG/ML INJ 25 MG IV (21:24)
[2022-02-22] MEDS: fentaNYL 100 MCG/2 ML INJ 25 MCG IV (21:32)
[2022-02-23 00:25] VITALS: BP 117/60; PULSE 61; O2SAT 95
[2022-02-23] MEDS: IBUPROFEN 600 MG TABLET PO ×2 (03:06→08:22)
[2022-02-23 03:34] VITALS: BP 125/59; PULSE 69; RESP 18; TEMP 36.9; O2SAT 97
[2022-02-23] MEDS: LEVOTHYROXINE 75 MCG TABLET PO (06:08)
[2022-02-23 07:39] VITALS: BP 101/56; BP 112/46; PULSE 65; RESP 18; TEMP 37.3; O2SAT 96
[2022-02-23] MEDS: ACETAMINOPHEN 325 MG TABLET 975 MG PO (08:21)
[2022-02-23] MEDS: ENOXAPARIN 40 MG/0.4 ML SYRINGE SUBCUT (08:23)
--- NOTE | 2022-02-23 12:45 | PM.DS.1 ---
History of Present Illness History of Present Illness Chief complaint: appendix Discharge Providers Provider Date of admission: 02/21/22 11:39 Discharge Date: 02/23/22 Primary care physician: Jes Paulson PA-C Discharge provider: Arnulfo Moreno MD Summary Hospital Course Discharge Diagnosis: Appendicitis Hospital Course: The patient had a laparoscopic appendectomy on 02/22/[address] Wood. She felt well on post op day 1. Her drain output was more sanguinous than serous and had over 100 mL and she had experience with a drain with when she had a perforated appendix so she was discharged home with instructions to record drain output. Exam Vital Signs (past 8 hours): - 02/23/22 07:39 02/23/22 07:39 Temperature 99.2 F Pulse Rate 65 Respiratory Rate 18 Blood Pressure 101/56 L 112/46 L Pulse Oximetry 96 Oxygen Flow Rate 0 Oxygen Delivery Method Nasal Cannula Oxygen Flow Rate 0 Objective Labs Result Diagrams: 02/21/22 07:23 02/21/22 07:23 PFSH Medical History (Updated 02/21/22 @ 11:54 by Robbi Prescott DO) Abnormal Pap smear of cervix Anxiety Cataracts, bilateral Cervical cancer Chicken pox Graves disease Hepatitis B Hyperthyroidism Migraines Plantar warts Renal function test abnormal Shoulder pain Skin cancer Vision disorder Surgical History Anesthesia History of hip replacement Family History Father Alcoholism Cancer of bladder Diabetes mellitus Emphysema Mental health problem Mother Alcoholism Grandmother Alzheimer's disease Grandfather Emphysema Grandmother No problems noted. Social History marital status: unmarried,single household members: none lives independently: Yes occupational status: previously employed Smoking Status: Former smoker Tobacco: How many years used: 48 second hand exposure: No alcohol intake: current substance use type: marijuana Discharge Plan Discharge Plan Patient Disposition: Home Provider Discharge Comment: Record drain output daily. Discharge orders & Medications Prescriptions: New hydrocodone-acetaminophen 5-325 mg tablet 1 tab PO Q8H PRN (Reason: pain) Qty: 10 0RF Continued levothyroxine 75 mcg tablet See Rx Instructions PO .6 days a week Label Comments: 1 tablet PO 6 days a week. Rx Instructions: takes 75mcg all days except Friday levothyroxine 88 mcg tablet See Rx Instructions PO .one day a week Label Comments: 1 tablet PO one day a week. Rx Instructions: 1 tablet by mouth on Wednesdays only. Follow up/Referrals: Jes Paulson PA-C [Primary Care Provider] - Discharge Data Primary Care Provider: Jes Paulson Attending Provider: Ju Wood VTE Deep Vein Thrombosis/Pulmonary Embolism Present on Admission: No
--- NOTE | 2022-02-23 13:05 | PC.NURSE ---
in to see pt. Denies discomfort, Abd dsg to JULITA drain CDI;' pt discharging w/drain per MD Lap sites CDI. HL discontinued intact. Home instructions given w/understanding. Pt escorted by staff via W/C to waiting vehicle in stable post op course.
--- NOTE | 2022-02-23 13:31 | CM.DPNOTE ---
DC Note Home w/supportive friends today, close outpatient f/u recommended. Indp; No needs identified by CM team JW
== END 2022-02-23 13:00 | disposition home or self-care (01) ==
LOC: ED 06:58 → AC 11:41
PROVIDERS: Admitting Provider Surgery; Emergency Provider Emergency Medicine; PCP Physician Assistant; Referring Provider Emergency Medicine; Visit Provider Surgery
PROC: 0DTJ4ZZ Resection of Appendix, Percutaneous Endoscopic Approach (ICD-10-PCS; CPT 44970; principal; 2022-02-22 16:00)
DX: K35.32 Acute appendicitis with perforation, localized peritonitis, and gangrene, without abscess (principal); E03.9 Hypothyroidism, unspecified; Z20.822 Contact with and (suspected) exposure to COVID-19
CPT/HCPCS: 44970; 36415; 74177; 80053; 81003; 83605; 83690; 85025; 87635; 96361; 96365; 96366; 96372; 96375; 96376; 99219; 99284; C9803; G0378; J1170; J1650; J2175; J2405; J2543; J3010; J7050; Q9967

== ENCOUNTER → 2022-02-26 14:23 | Outpatient (CLI) | payer MEDICARE, OTHER, SELFPAY ==
[2022-02-21 16:49] VITALS: BMI 19.9
--- NOTE | 2022-02-26 14:25 | DI.CT.S_ITS ---
PROCEDURE: CT CHEST ABD PEL W CON INDICATIONS: severe LLQ pain TECHNIQUE: After the administration of oral and intravenous contrast, axial sections acquired from the supraclavicular neck to the pubic symphysis. Coronal and sagittal reformats were performed. For radiation dose reduction, the following was used: automated exposure control, adjustment of mA and/or kV according to patient size. COMPARISON: [facility], CT, CT ABDOMEN PELVIS W CON, 02/21/2022, 8:55. FINDINGS: Image quality: Excellent. CHEST: Lower Neck: No enlarged lymph nodes. Thyroid: Within normal limits. Axillae: No enlarged lymph nodes. Chest Wall: Unremarkable. Lungs and Airways: No consolidation or suspicious nodules. Mild dependent right lung base atelectasis. Mild scarring within the left lower lobe. Pleura: No pneumothorax or pleural effusions. Heart: Heart size is normal. No pericardial effusion. There is mild calcification of the coronary vasculature. Thoracic Vessels: The aorta and pulmonary arteries demonstrate normal size. Mediastinum and Maddi: No enlarged lymph nodes. Esophagus: No wall thickening. No hiatal hernia. ABDOMEN: Liver: Unremarkable. Gallbladder: Unremarkable. Biliary ducts: Unremarkable. Pancreas: Unremarkable. Spleen: Unremarkable. Adrenal Glands: Unremarkable. Kidneys and Ureters: Unremarkable. Stomach and Bowel: Stomach, small bowel loops, and colon are unremarkable. There is a drainage catheter within the right pericolic gutter. A peritoneal catheter enters via the left anterior pelvic wall and terminates within the right lower quadrant. Peritoneum: No abnormal intraperitoneal fluid. No free air. Ventral Wall: No hernia. Abdominal Nodes: No retroperitoneal or mesenteric adenopathy by size criteria. Vessels: Aorta and inferior vena cava are normal in size. PELVIS: Pelvic Organs: Unremarkable. Bladder: Unremarkable. Pelvic Nodes: No enlarged lymph nodes. Miscellaneous: No inguinal hernias are seen. Bones: Bilateral hip arthroplasty has been performed. IMPRESSION: 1. Postsurgical sequelae. 2. Mild coronary artery disease. 3. No acute process. Dictated by: Gagan Mejia M.D. on 02/26/2022 at 16:16 Transcribed by: PAULINE on 02/26/2022 at 16:19 Approved by: Gagan Mejia M.D. on 02/26/2022 at 16:33
== END ==
PROVIDERS: PCP Physician Assistant; Referring Provider Surgery; Visit Provider Surgery
DX: R10.32 Left lower quadrant pain (principal); G89.18 Other acute postprocedural pain; I25.10 Atherosclerotic heart disease of native coronary artery without angina pectoris; Z96.643 Presence of artificial hip joint, bilateral
CPT/HCPCS: 71260; 74177

== ENCOUNTER → 2022-02-27 13:05 | Outpatient (CLI) | payer MEDICARE, OTHER, SELFPAY ==
[2022-02-21 16:49] VITALS: BMI 19.9
--- NOTE | 2022-02-27 13:07 | DI.RAD.S_ITS ---
PROCEDURE: XR ACUTE ABDOMEN SERIES INDICATIONS: CT yesterday could not see colon TECHNIQUE: One view chest and two views of the abdomen were acquired. COMPARISON: None. FINDINGS: Surgical changes and devices: There is prior bilateral total hip arthroplasty. Surgical drain is seen in right side of abdomen. Chest: Lungs are clear. Heart size is normal. No pleural effusions. No pneumoperitoneum. Abdomen: Oral contrast material is seen throughout colon extending to distal sigmoid colon. No oral contrast extravasation. Bowel gas pattern is nonobstructive. No gross free air. No suspicious calcifications. Visualized solid organ contours appear normal. Bones: No suspicious bony lesions. IMPRESSION: 1. No bowel obstruction. Oral contrast material throughout the colon. No pneumoperitoneum. No oral contrast extravasation. 2. No acute cardiopulmonary pathology. Dictated by: Yoni Hernandez M.D. on 02/27/2022 at 14:59 Approved by: Yoni Hernandez M.D. on 02/27/2022 at 14:59
== END ==
PROVIDERS: PCP Physician Assistant; Referring Provider Surgery; Visit Provider Surgery
DX: G89.18 Other acute postprocedural pain (principal); Z90.49 Acquired absence of other specified parts of digestive tract
CPT/HCPCS: 74022

== ENCOUNTER → 2022-04-06 14:09 | Outpatient (CLI) | payer MEDICARE, OTHER, SELFPAY ==
[2022-02-21 16:49] VITALS: BMI 19.9
--- NOTE | 2022-04-06 | DI.MG.S_ITS ---
BILATERAL DIGITAL SCREENING MAMMOGRAM 3D/2D WITH CAD: 04/06/2022 CLINICAL: Routine screening. Family history of breast cancer. Comparison is made to exams dated: 10/29/2019 mammogram, 04/25/2018 mammogram, 09/04/2016 mammogram, and 09/04/2015 mammogram - [facility]. Both breasts are heterogeneously dense, which may obscure small masses (category c / 51-75% glandular tissue). Current study was also evaluated with a Computer Aided Detection (CAD) system. No significant masses, calcifications, or other findings are seen in either breast. There has been no significant interval change. IMPRESSION: NEGATIVE There is no mammographic evidence of malignancy. A 1 year screening mammogram is recommended. Based on the Tyrer Cuzick model (a risk assessment model) the patient's lifetime risk is 13.0% and her 10 year risk is 6.9%. According to the ACR, ACS, and NCCN guidelines, an annual breast MRI exam along with mammogram is recommended if the patient's lifetime risk is 20% or greater. This exam was interpreted at Station ID: [id number]. NOTE: For mammograms, a report in lay terms will be sent to the patient. Approximately 15% of breast malignancies will not be visualized mammographically. In the management of a palpable breast mass, a negative mammogram must not discourage biopsy of a clinically suspicious lesion. Electronically Signed By: Mo crouch/divya:04/08/2022 13:30:07 copy to: Piedad Ramirez letter sent: Normal Exam ACR BI-RADS Category 1: Negative [id number]
== END ==
PROVIDERS: PCP Family Medicine; Referring Provider Family Medicine; Visit Provider Family Medicine
DX: Z12.31 Encounter for screening mammogram for malignant neoplasm of breast (principal); Z80.3 Family history of malignant neoplasm of breast
CPT/HCPCS: 77063; 77067

== ENCOUNTER → 2022-04-08 08:38 | Outpatient (CLI) | payer MEDICARE, OTHER, SELFPAY ==
[2022-02-21 16:49] VITALS: BMI 19.9
[2022-04-08 10:44] LABS: Add Manual Diff / Slide Review NO; Basophils Absolute Auto 100 /uL (0-100); Eosinophils Absolute Auto 200 /uL (0-450); Eosinophils Percent Auto 3.3 % (2-4); Hematocrit 38.7 % (36-46); Hemoglobin 12.5 g/dL (12.0-16.0); Lymphocytes Absolute Auto 2600 /uL (1100-4500); Lymphocytes Percent Auto 41.7 % (25-40); Mean Corpuscular HGB Conc 32.3 % (30-36); Mean Corpuscular Hemoglobin 28.8 PG (26-34); Mean Corpuscular Volume 89.1 fL (80-100); Monocytes Absolute Auto 400 /uL (0-900); Monocytes Percent Auto 7.1 % (3-14); Neutrophils Absolute Auto 2800 /uL (1500-7000); Neutrophils Percent Auto 45.9 % (50-75); Platelet Count 378 X10^3/uL (150-400); Red Blood Cell Count 4.34 X10^6/uL (4.0-5.2); Red Cell Distribution Width 14.7 % (11.6-14.8); White Blood Cell Count 6.1 X10^3/uL (4.5-11.0)
[2022-04-08 11:15] LABS: Alanine Aminotransferase 15 IU/L (<35); Albumin 4.4 g/dL (3.5-5.0); Albumin Globulin Ratio 1.6 (1.0-2.8); Alkaline Phosphatase 60 U/L (38-126); Aspartate Aminotransferase 21 IU/L (14-36); BUN Creatinine Ratio 18.9 (6-22); Bilirubin Total 0.7 mg/dL (0.2-1.3); Blood Urea Nitrogen 17 mg/dL (7-17); Calcium 9.4 mg/dL (8.4-10.2); Carbon Dioxide 26 mmol/L (22-32); Chloride 103 mmol/L (98-107); Cholesterol 227 mg/dL (140-199); Estimated Glomerular Filt Rate > 60 mL/min (>60); Globulin 2.8 g/dL (1.7-4.1); Glucose 84 mg/dL (80-110); HDL Cholesterol 73 mg/dL (40-60); HEMOLYSIS < 15 (0-50); LDL Cholesterol Calculated 135 mg/dL (<100); Sodium 138 mmol/L (137-145); Total Protein 7.2 g/dL (6.3-8.2); Triglycerides 95 mg/dL (35-150)
[2022-04-08 11:30] LABS: Vitamin D 25 Hydroxy (D3) 67.7 ng/mL (30.0-100.0)
[2022-04-08 11:33] LABS: Thyroid Stimulating Hormone 3.84 uIU/mL (0.47-4.68)
[2022-04-08 11:35] LABS: Microalbumin Urine Random 0.6 mg/dL (0-1.6)
[2022-04-08 11:36] LABS: Creatinine Urine Random 89.7 mg/dL; Microalbumi Creatinin Ratio Ur 6.6 ug/mg CR (<30)
== END ==
PROVIDERS: PCP Family Medicine; Referring Provider Family Medicine; Visit Provider Family Medicine
DX: K52.9 Noninfective gastroenteritis and colitis, unspecified (principal); E03.9 Hypothyroidism, unspecified; Z79.899 Other long term (current) drug therapy; K35.32 Acute appendicitis with perforation, localized peritonitis, and gangrene, without abscess; R94.4 Abnormal results of kidney function studies; Z13.220 Encounter for screening for lipoid disorders
CPT/HCPCS: 36415; 80053; 80061; 82043; 82306; 82570; 84443; 85025

== ENCOUNTER → 2022-04-16 10:19 | Outpatient (CLI) | payer MEDICARE, OTHER, SELFPAY ==
[2022-02-21 16:49] VITALS: BMI 19.9
== END ==
PROVIDERS: PCP Family Medicine; Referring Provider Family Medicine; Visit Provider Family Medicine
DX: Z78.0 Asymptomatic menopausal state (principal); Z13.820 Encounter for screening for osteoporosis
CPT/HCPCS: 77080; 77081

== ENCOUNTER → 2022-06-27 11:41 | Outpatient (CLI) | payer MEDICARE, OTHER, SELFPAY ==
[2022-02-21 16:49] VITALS: BMI 19.9
[2022-06-27 13:34] LABS: TSH w/ Reflex to FT4 2.66 uIU/mL (0.47-4.68)
== END ==
PROVIDERS: PCP Family Medicine; Referring Provider Internal Medicine; Visit Provider Internal Medicine
DX: E03.9 Hypothyroidism, unspecified (principal); K58.0 Irritable bowel syndrome with diarrhea
CPT/HCPCS: 36415; 84443

== ENCOUNTER → 2022-06-28 07:16 | Outpatient (CLI) | payer MEDICARE, OTHER, SELFPAY ==
[2022-02-21 16:49] VITALS: BMI 19.9
== END ==
PROVIDERS: PCP Family Medicine; Referring Provider Internal Medicine; Visit Provider Internal Medicine
DX: K58.0 Irritable bowel syndrome with diarrhea (principal)
CPT/HCPCS: 87328; 87329

== ENCOUNTER → 2022-07-09 12:27 | Outpatient (CLI) | payer MEDICARE, OTHER, SELFPAY ==
[2022-02-21 16:49] VITALS: BMI 19.9
[2022-07-11 18:44] LABS: Cryptosporidium EIA Negative (Negative)
== END ==
PROVIDERS: PCP Family Medicine; Referring Provider Internal Medicine; Visit Provider Internal Medicine
DX: K58.0 Irritable bowel syndrome with diarrhea (principal)
CPT/HCPCS: 87328

== ENCOUNTER → 2023-04-10 11:07 | Outpatient (CLI) | payer MEDICARE, OTHER, SELFPAY ==
[2022-02-21 16:49] VITALS: BMI 19.9
[2023-04-10 12:40] LABS: Alanine Aminotransferase 47 IU/L (<35); Albumin 4.2 g/dL (3.5-5.0); Albumin Globulin Ratio 1.4 (1.0-2.8); Alkaline Phosphatase 60 U/L (38-126); Aspartate Aminotransferase 41 IU/L (14-36); BUN Creatinine Ratio 13.8 (6-22); Bilirubin Total 0.6 mg/dL (0.2-1.3); Blood Urea Nitrogen 13 mg/dL (7-17); Calcium 9.6 mg/dL (8.4-10.2); Carbon Dioxide 26 mmol/L (22-32); Chloride 106 mmol/L (98-107); Estimated Glomerular Filt Rate > 60 mL/min (>60); Glucose 99 mg/dL (80-110); HEMOLYSIS < 15 (0-50); Potassium 3.9 mmol/L (3.4-5.1); Sodium 139 mmol/L (137-145); Total Protein 7.2 g/dL (6.3-8.2)
[2023-04-10 12:50] LABS: TSH w/ Reflex to FT4 1.72 uIU/mL (0.47-4.68)
[2023-04-11 03:34] LABS: Cholesterol HDL Ratio 3.3 ratio (0.0-4.4); Cholesterol,Total 204 mg/dL (100-199); HDL Cholesterol 62 mg/dL (>39); LDL Cholesterol Cal 122 mg/dL (0-99); Triglycerides 112 mg/dL (0-149); VLDL Cholesterol Cal 20 mg/dL (5-40)
== END ==
PROVIDERS: PCP Nurse Practitioner Family; Referring Provider Nurse Practitioner Family; Visit Provider Nurse Practitioner Family
DX: E03.9 Hypothyroidism, unspecified (principal); E78.5 Hyperlipidemia, unspecified
CPT/HCPCS: 36415; 80053; 80061; 84443

== ENCOUNTER → 2023-06-26 11:22 | Outpatient (CLI) | payer MEDICARE, OTHER, SELFPAY ==
[2022-02-21 16:49] VITALS: BMI 19.9
[2023-06-26 11:46] LABS: Add Manual Diff / Slide Review NO; Basophils Absolute Auto 200 /uL (0-100); Basophils Percent Auto 3.2 % (0-2); Eosinophils Absolute Auto 300 /uL (0-450); Hematocrit 36.7 % (36-46); Hemoglobin 12.4 g/dL (12.0-16.0); Lymphocytes Absolute Auto 2600 /uL (1100-4500); Lymphocytes Percent Auto 40.7 % (25-40); Mean Corpuscular HGB Conc 33.8 % (30-36); Mean Corpuscular Hemoglobin 29.9 PG (26-34); Mean Corpuscular Volume 88.5 fL (80-100); Monocytes Absolute Auto 500 /uL (0-900); Monocytes Percent Auto 7.6 % (3-14); Neutrophils Absolute Auto 2800 /uL (1500-7000); Neutrophils Percent Auto 44.5 % (50-75); Platelet Count 341 X10^3/uL (150-400); Red Blood Cell Count 4.14 X10^6/uL (4.0-5.2); White Blood Cell Count 6.4 X10^3/uL (4.5-11.0)
[2023-06-26 12:19] LABS: Alanine Aminotransferase 16 IU/L (<35); Albumin Globulin Ratio 1.5 (1.0-2.8); Alkaline Phosphatase 47 U/L (38-126); Aspartate Aminotransferase 24 IU/L (14-36); BUN Creatinine Ratio 18.8 (6-22); Bilirubin Total 0.6 mg/dL (0.2-1.3); Blood Urea Nitrogen 18 mg/dL (7-17); Calcium 9.8 mg/dL (8.4-10.2); Carbon Dioxide 27 mmol/L (22-32); Chloride 110 mmol/L (98-107); Estimated Glomerular Filt Rate > 60 mL/min (>60); Globulin 2.7 g/dL (1.7-4.1); Glucose 97 mg/dL (80-110); HEMOLYSIS < 15 (0-50); Potassium 4.1 mmol/L (3.4-5.1); Sodium 141 mmol/L (137-145); Total Protein 6.7 g/dL (6.3-8.2)
[2023-06-26 12:46] LABS: TSH w/ Reflex to FT4 1.32 uIU/mL (0.47-4.68)
[2023-06-27 06:32] LABS: RPR Screen Non Reactive (Non Reactive)
== END ==
PROVIDERS: PCP Nurse Practitioner Family; Referring Provider Nurse Practitioner Family; Visit Provider Nurse Practitioner Family
DX: E03.9 Hypothyroidism, unspecified (principal); R41.3 Other amnesia
CPT/HCPCS: 36415; 80053; 84443; 85025; 86592

== ENCOUNTER → 2023-08-18 14:15 | Outpatient (CLI) | payer MEDICARE, OTHER, SELFPAY ==
[2022-02-21 16:49] VITALS: BMI 19.9
[2023-08-18 15:03] LABS: Add Manual Diff / Slide Review NO; Basophils Absolute Auto 100 /uL (0-100); Basophils Percent Auto 1.7 % (0-2); Eosinophils Absolute Auto 200 /uL (0-450); Hematocrit 37.5 % (36-46); Hemoglobin 12.5 g/dL (12.0-16.0); Lymphocytes Absolute Auto 2600 /uL (1100-4500); Lymphocytes Percent Auto 34.4 % (25-40); Mean Corpuscular HGB Conc 33.2 % (30-36); Mean Corpuscular Hemoglobin 29.3 PG (26-34); Monocytes Absolute Auto 500 /uL (0-900); Monocytes Percent Auto 7.1 % (3-14); Neutrophils Absolute Auto 4100 /uL (1500-7000); Neutrophils Percent Auto 53.8 % (50-75); Platelet Count 350 X10^3/uL (150-400); Red Blood Cell Count 4.26 X10^6/uL (4.0-5.2); Red Cell Distribution Width 13.4 % (11.6-14.8); White Blood Cell Count 7.5 X10^3/uL (4.5-11.0)
[2023-08-18 15:30] LABS: BUN Creatinine Ratio 15.2 (6-22); Blood Urea Nitrogen 15 mg/dL (7-17); Calcium 9.6 mg/dL (8.4-10.2); Carbon Dioxide 29 mmol/L (22-32); Chloride 108 mmol/L (98-107); Estimated Glomerular Filt Rate > 60 mL/min (>60); Glucose 99 mg/dL (80-110); HEMOLYSIS < 15 (0-50); Potassium 4.3 mmol/L (3.4-5.1); Sodium 140 mmol/L (137-145)
[2023-08-18 15:41] LABS: Appearance Urine UA CLEAR; Bilirubin Urine UA NEGATIVE (NEGATIVE); Color Urine UA YELLOW; Glucose Urine UA NEGATIVE (Negative); Ketones Urine UA NEGATIVE (NEGATIVE); Leukocyte Esterase Urine UA NEGATIVE (NEGATIVE); Nitrite Urine UA NEGATIVE (Negative); Occult Blood Urine UA NEGATIVE (Negative); Protein Urine UA NEGATIVE (Negative); Specific Gravity Urine UA 1.015 (1.000-1.035); Urobilinogen Urine UA 0.2 E.U./dL (0.2)
[2023-08-18 15:55] LABS: Bacteria Urine None Seen; Culture Indicated Urine Cult Not Indicated; RBC Urine None Seen (0-5/HPF); Squamous Epithelial Cell Urine None Seen (0-5/HPF); Urine Volume 10mL (spun); WBC Urine None Seen (0-5/HPF)
== END ==
PROVIDERS: PCP Nurse Practitioner Family; Referring Provider Orthopaedic Surgery; Visit Provider Orthopaedic Surgery
DX: Z01.818 Encounter for other preprocedural examination (principal); Z01.812 Encounter for preprocedural laboratory examination; N39.0 Urinary tract infection, site not specified
CPT/HCPCS: 36415; 80048; 81001; 85025; 93005

== ENCOUNTER → 2023-08-25 12:04 | Outpatient (CLI) | payer MEDICARE, OTHER, SELFPAY ==
[2022-02-21 16:49] VITALS: BMI 19.9
--- NOTE | 2023-08-25 12:08 | DI.CT.S_ITS ---
PROCEDURE: CT UE LT WO CON INDICATIONS: Primary osteoarthritis, left shoulder TECHNIQUE: Noncontrast 0.75 mm thick sections acquired from the acromioclavicular joint to the inferior scapula, with coronal and sagittal reformatting. COMPARISON: None. FINDINGS: Bones: Mild degenerative changes of the right acromioclavicular joint. The right clavicle is intact. Severe degenerative changes of the right glenohumeral joint with severe joint space narrowing, and associated osteophytosis of the humeral head. There is remodeling of the glenoid. No glenoid retroversion. Small ossifications about the inferior glenoid, representing for injury. Visualized right ribs are unremarkable. Soft tissue findings: Small glenohumeral effusion. Large subcoracoid bursitis. Moderate tenosynovitis of the extra-articular biceps tendon. No right axillary lymphadenopathy. Multiple subcentimeter centrilobular ground-glass pulmonary nodules and multiple sub 5 mm solid pulmonary nodule seen in the right upper lobe. No significant fatty atrophy of the rotator cuff musculature. IMPRESSION: 1. Mild degenerative changes of the right acromioclavicular joint. 2. Severe degenerative changes right glenohumeral joint. No right renal retroversion. 3. Large subcoracoid bursitis. Moderate tenosynovitis of the extra-articular biceps tendon. 4. Ground-glass and solid pulmonary nodules in the right upper lobe, grossly unchanged from CT on 02/26/2022, favoring inflammatory versus infectious etiology. Dictated by: Martina Aguilar M.D. on 08/25/2023 at 14:01 Approved by: Martina Aguilar M.D. on 08/25/2023 at 14:10
== END ==
LOC: CT 12:06
PROVIDERS: PCP Nurse Practitioner Family; Referring Provider Orthopaedic Surgery; Visit Provider Orthopaedic Surgery
DX: M19.012 Primary osteoarthritis, left shoulder (principal); M75.52 Bursitis of left shoulder; M65.812 Other synovitis and tenosynovitis, left shoulder; R91.8 Other nonspecific abnormal finding of lung field
CPT/HCPCS: 73200

== ENCOUNTER 2023-09-08 22:09 | Observation (INO) | payer MEDICARE, OTHER, SELFPAY ==
[2022-02-21 16:49] VITALS: BMI 19.9
[2023-09-08] VITALS (7 sets, daily range): BP systolic 109–130; BP diastolic 56–72; PULSE 62–73; RESP 18; TEMP 36.9; O2SAT 78–99; BMI 22.6
--- NOTE | 2023-09-08 22:36 | ED.GIBLEED ---
HPI - GI Bleed General Chief complaint: GI Bleed Stated complaint: Colitis Flare Time Seen by Provider: 09/08/23 22:36 Source: patient Mode of arrival: Ambulatory History of Present Illness HPI Narrative: 68-year-old female reports history of some form of colitis for which she takes naltrexone, denies history of Crohn's disease, has had diarrhea for 4 days initially without black or red color, no mucous, a few loose stools 1st day with abdominal discomfort, pain seemed to eitan but had continued 2-3 loose stools without black or red color last couple days, then 10:30 p.m. last night had left sided and lower abdominal discomfort, then bowel movement loose stool mixed with bright red blood. No fevers or chills. No nausea or vomiting. No recent exposure to antibiotics. She has not taking any steroids. She denied taking blood thinner medications. No injury or trauma. No sensation of passing out or feeling like she might pass out. Related Data Home Medications Medication Instructions Recorded Confirmed levothyroxine 75 mcg tablet See Rx Instructions PO .6 days a 11/04/18 09/08/23 week levothyroxine 88 mcg tablet See Rx Instructions PO .one day a 11/04/18 09/08/23 week naltrexone 50 mg tablet mg PO DAILY 09/08/23 Previous Rx's Medication Instructions Recorded acetaminophen 500 mg tablet 1,000 mg (2 x 500 mg) PO Q6H #30 02/26/22 (Acetaminophen Extra Strength) tabs ibuprofen 600 mg tablet 600 mg PO Q6H #20 tabs 02/26/22 Allergies Allergy/AdvReac Type Severity Reaction Status Date / Time taylor [TAYLOR] Allergy Intermediate blisters Verified 04/09/22 14:39 Patient History Medical History (Updated 09/09/23 @ 01:36 by Felipe Ramirez MD) Renal function test abnormal Vision disorder Plantar warts Anxiety Migraines Shoulder pain Hepatitis B Chicken pox Cataracts, bilateral Abnormal Pap smear of cervix Hyperthyroidism Graves disease Skin cancer Cervical cancer Surgical History Anesthesia History of hip replacement Family History Father Alcoholism Cancer of bladder Diabetes mellitus Emphysema Mental health problem Mother Alcoholism Grandmother Alzheimer's disease Grandfather Emphysema Grandmother No problems noted. Social History marital status: unmarried,single household members: none lives independently: Yes occupational status: previously employed Smoking Status: Former smoker Tobacco: How many years used: 48 second hand exposure: No alcohol intake: current substance use type: marijuana Smoking Status: Former smoker alcohol intake frequency: holidays/special occasions only Substance Use Type: marijuana Exam Initial Vital Signs Initial Vital Signs: Vital Signs Pulse Rate 73 09/08/23 22:12 Pulse Oximetry 78 L 09/08/23 22:12 Course Orders Ordered: ED Orders 09/08/23 22:10 Complete Blood Count AUTO DIFF Stat Comprehensive Metabolic Panel Stat Lipase Stat 09/08/23 23:41 CT abdomen pelvis w con Stat 09/09/23 01:09 Clostridium Difficile Tox PCR Stat 09/09/23 02:10 Blood Culture Stat Acetaminophen (Acetaminophen 325 Mg Tablet) 650 mg PO Q6H PRN PRN Reason: Fever/Mild Pain (1-3) Potassium Chloride/Dextrose/Sod Cl (Dextrose 5%-0.45%Ns W/Kcl 20meq) 1,000 mls @ 100 mls/hr IV CONT MIRI Last Admin: 09/09/23 04:27 Dose: 100 mls/hr Documented By: AT Levothyroxine Sodium (Levothyroxine 75 Mcg Tablet) 75 mcg PO SuMoTuThFrSa@0700 MIRI Levothyroxine Sodium (Levothyroxine 88 Mcg Tablet) 88 mcg PO We@0700 [facility] Naloxone HCl (Naloxone 0.4 Mg/Ml Vial) 0.2 mg IV Q2MIN PRN PRN Reason: Opiate Reversal Ondansetron HCl (Ondansetron 4 Mg/2 Ml Inj) 4 mg IV Q4HR PRN PRN Reason: nausea Pantoprazole Sodium (Pantoprazole 40 Mg Vial) 20 mg IV DAILY MIRI Discontinued Medications POTASSIUM CHLORIDE IN WATER (Potassium Cl 10 Meq/100 Ml Elana) 10 meq in 100 mls @ 100 mls/hr IV Q1H MIRI Stop: 09/09/23 01:44 Last Infusion: 09/09/23 02:25 Dose: Infused Documented By: Admin: 09/09/23 01:26 Dose: 100 mls/hr Documented By: Infusion: 09/09/23 01:26 Dose: Infused Documented By: Admin: 09/09/23 00:32 Dose: 100 mls/hr Documented By: CANDY Ciprofloxacin (Cipro) 400 mg in 200 mls @ 200 mls/hr IV NOW ONE Stop: 09/09/23 02:24 Last Admin: 09/09/23 03:03 Dose: 200 mls/hr Documented By: ZEE Metronidazole (Flagyl) 500 mg in 100 mls @ 100 mls/hr IV NOW ONE Stop: 09/09/23 02:29 Last Infusion: 09/09/23 02:57 Dose: Infused Documented By: Admin: 09/09/23 01:57 Dose: 100 mls/hr Documented By: ZEE Levothyroxine Sodium (Levothyroxine 88 Mcg Tablet) 0 mcg PO .one day a week MIRI Levothyroxine Sodium (Levothyroxine 75 Mcg Tablet) 0 mcg PO .6 days a week MIRI Methylprednisolone (Methylprednisolone 40 Mg/Ml Vial) 40 mg IV NOW ONE Stop: 09/09/23 03:53 Vital Signs Vital signs: Vital Signs - 8 hr 09/08/23 22:12 09/08/23 22:13 09/08/23 22:13 Temperature Pulse Rate 73 71 Respiratory Rate Blood Pressure 122/72 Pulse Oximetry 78 L 87 L Oxygen Delivery Method 09/08/23 22:17 09/08/23 22:30 09/08/23 22:31 Temperature 98.5 F Pulse Rate 62 69 62 Respiratory Rate 18 Blood Pressure 122/72 Pulse Oximetry 99 98 97 Oxygen Delivery Method Room Air 09/08/23 22:31 09/08/23 23:00 09/08/23 23:00 Temperature Pulse Rate 65 Respiratory Rate Blood Pressure 130/60 113/56 L Pulse Oximetry 94 Oxygen Delivery Method 09/08/23 23:30 09/08/23 23:30 09/09/23 00:04 Temperature Pulse Rate 69 77 Respiratory Rate Blood Pressure 109/59 L Pulse Oximetry 95 86 L Oxygen Delivery Method 09/09/23 00:26 09/09/23 00:26 09/09/23 00:30 Temperature Pulse Rate 81 Respiratory Rate Blood Pressure 111/57 L 109/57 L Pulse Oximetry 97 Oxygen Delivery Method 09/09/23 00:30 09/09/23 01:00 09/09/23 01:00 Temperature Pulse Rate 73 77 Respiratory Rate Blood Pressure 110/57 L Pulse Oximetry 97 97 Oxygen Delivery Method 09/09/23 01:30 09/09/23 01:30 09/09/23 02:00 Temperature Pulse Rate 71 Respiratory Rate Blood Pressure 113/58 L 111/62 Pulse Oximetry 96 Oxygen Delivery Method 09/09/23 02:00 09/09/23 02:30 09/09/23 02:30 Temperature Pulse Rate 70 75 Respiratory Rate Blood Pressure 107/57 L Pulse Oximetry 98 96 Oxygen Delivery Method MDM - GI Bleed Medical Records Attestation: I reviewed the patient's medical records. Lab Data 09/08/23 22:10 09/08/23 22:10 Labs: Lab Results 09/08/23 Range/Units 22:10 WBC 10.3 (4.5-11.0) X10^3/uL RBC 4.44 (4.0-5.2) X10^6/uL Hgb 13.0 (12.0-16.0) g/dL Hct 39.2 (36-46) % MCV 88.4 (80-100) fL MCH 29.2 (26-34) PG MCHC 33.1 (30-36) % RDW 13.7 (11.6-14.8) % Plt Count 399 (150-400) X10^3/uL Neut % (Auto) 37.5 L (50-75) % Lymph % (Auto) 53.7 H (25-40) % [place] % (Auto) 5.6 (3-14) % Eos % (Auto) 2.2 (2-4) % Baso % (Auto) 1.0 (0-2) % Neut # (Auto) 3800 (1057-1242) /uL Lymph # (Auto) 5500 H (8406-7671) /uL [place] # (Auto) 600 (0-900) /uL Eos # (Auto) 200 (0-450) /uL Baso # (Auto) 100 (0-100) /uL Sodium 141 (137-145) mmol/L Potassium 3.2 L (3.4-5.1) mmol/L Chloride 109 H (98-107) mmol/L Carbon Dioxide 22 (22-32) mmol/L BUN 18 H (7-17) mg/dL Creatinine 0.85 (0.52-1.04) mg/dL Estimated GFR > 60 (>60) mL/min BUN/Creatinine Ratio 21.2 (6-22) Glucose 139 H (80-110) mg/dL Calcium 9.5 (8.4-10.2) mg/dL Total Bilirubin 0.5 (0.2-1.3) mg/dL AST 41 H (14-36) IU/L ALT 18 (<35) IU/L Alkaline Phosphatase 61 (38-126) U/L Total Protein 7.2 (6.3-8.2) g/dL Albumin 4.5 (3.5-5.0) g/dL Globulin 2.7 (1.7-4.1) g/dL Albumin/Globulin Ratio 1.7 (1.0-2.8) Lipase 95 (23-300) U/L Imaging Data CT scan - abdomen/pelvis: Radiologist's Impression: [address] [address] [address] Scan Report Signed Patient: Heather Souza MR#: [id number] : 1955 Acct:[id number] Age/Sex: 68 / F Date of Service: 09/08/23 Loc: ED Accession Number: [id number] Procedure: CT abdomen pelvis w con Ordering Provider: Felipe Ramirez MD PROCEDURE: CT ABDOMEN PELVIS W CON INDICATIONS: abd pain, hx colitis TECHNIQUE: After the administration of intravenous contrast, axial sections acquired from the lung bases to the pubic symphysis. Coronal and sagittal reformats were performed. For radiation dose reduction, the following was used: automated exposure control, adjustment of mA and/or kV according to patient size. COMPARISON: [facility], CT, CT ABDOMEN PELVIS W CON, 02/21/2022, 8:55. FINDINGS: Image quality: Diagnostic. Lower Chest: Minor right base scarring. ABDOMEN: Liver: No solid mass. Gallbladder: No wall thickening or calcified stones. Biliary ducts: Mildly prominent extrahepatic common duct measuring 1.2 cm. It appears to taper at the ampulla and there are no CT findings of filling defects. Pancreas: Borderline pancreatic ductal dilatation. No other visible pancreatic abnormality. Spleen: Size is within normal limits. Adrenal Glands: No adrenal nodules. Kidneys and Ureters: Symmetric enhancement. No nephrolithiasis or hydronephrosis. No hydroureter. Left lower pole simple cyst. Stomach and Bowel: There diffuse decompression or spasm from the proximal transverse colon through the descending, sigmoid colon, and also seen in the rectum. There is mucosal hyperemia in the rectum and sigmoid colon. There is mild fat stranding along the serosal surface. Proximal colon demonstrates semi solid stool and mild distension. Surgically absent appendix. Small bowel loops are decompressed. Stomach is normal. Peritoneum: No abnormal intraperitoneal fluid. No free air. Ventral Wall: No significant ventral hernia. Abdominal Nodes: No retroperitoneal or mesenteric adenopathy by size criteria. Vessels: Aorta and inferior vena cava are normal in size. Moderate abdominal aortic atherosclerotic calcification. PELVIS: Pelvic Organs: Partially obscured, but within normal limits. Bladder: Partially seen, within normal limits. Pelvic Nodes: No enlarged lymph nodes. Miscellaneous: No inguinal hernias are seen. Bones: Bilateral hip arthroplasties cause beam hardening artifact which obscures much of pelvis. Degenerative disc disease L4-5 and L5-S1. IMPRESSION: There are findings of colitis involving the transverse, descending, sigmoid colon, and rectum without evidence of perforation or abscess formation. The proximal colon is slightly distended and there may be a partial functional obstruction. Dictated by: Milla Ovalle M.D. on 09/09/2023 at 1:06 Approved by: Milla Ovalle M.D. on 09/09/2023 at 1:13 MDM Narrative Medical decision making narrative: 68-year-old female complains of abdominal discomfort with ongoing diarrhea for 4 days, pain abated but persisting diarrhea, 10 30 last night had more lower abdominal discomfort, with bright red blood mixed with stool. Afebrile, sirs screen negative. Some mild tenderness lower abdominal discomfort. Nonrigid nondistended. IV analgesia, pain seems controlled. Guaiac stool if she produces a specimen. CT abdomen pelvis requested. CT abdomen and pelvis shows acute colitis changes involving the transverse descending sigmoid and rectum, no mention of perforation or abscess formation. See dictated radiology report Blood cultures, stool C diff toxin if she produces a specimen, IV ciprofloxacin, IV Flagyl. We will contact hospitalist regarding admission 024, still waiting for call back from hospitalist [phone], case discussed with hospitalist Bravo, who accepts patient for admission to observation Critical Care Time Critical Care Time Critical Care Time: Yes Total Critical Care Time: 35 Attestation: The high probability of a clinically significant, sudden or life threatening deterioration of the [35] system(s) required my full and direct attention, intervention and personal management. The aggregate critical care time was [] minutes. This time is in addition to time spent performing reported procedures but includes the following: [x] Data Review and interpretation [x] Patient assessment and monitoring of vital signs [x] Documentation [x] Medication orders and management Discharge Plan Departure Patient Disposition: Admitted as Observation Clinical Impression: Colitis, Acute lower gastrointestinal hemorrhage Admit Date/Time: 09/09/23 03:20 Admit Provider: Jaden Magana
[2023-09-08 22:43] LABS: Add Manual Diff / Slide Review NO; Basophils Absolute Auto 100 /uL (0-100); Eosinophils Absolute Auto 200 /uL (0-450); Eosinophils Percent Auto 2.2 % (2-4); Hematocrit 39.2 % (36-46); Lymphocytes Absolute Auto 5500 /uL (1100-4500); Lymphocytes Percent Auto 53.7 % (25-40); Mean Corpuscular HGB Conc 33.1 % (30-36); Mean Corpuscular Hemoglobin 29.2 PG (26-34); Mean Corpuscular Volume 88.4 fL (80-100); Monocytes Absolute Auto 600 /uL (0-900); Monocytes Percent Auto 5.6 % (3-14); Neutrophils Absolute Auto 3800 /uL (1500-7000); Neutrophils Percent Auto 37.5 % (50-75); Platelet Count 399 X10^3/uL (150-400); Red Blood Cell Count 4.44 X10^6/uL (4.0-5.2); Red Cell Distribution Width 13.7 % (11.6-14.8); White Blood Cell Count 10.3 X10^3/uL (4.5-11.0)
[2023-09-08 22:47] LABS: Alanine Aminotransferase 18 IU/L (<35); Albumin 4.5 g/dL (3.5-5.0); Albumin Globulin Ratio 1.7 (1.0-2.8); Alkaline Phosphatase 61 U/L (38-126); Aspartate Aminotransferase 41 IU/L (14-36); BUN Creatinine Ratio 21.2 (6-22); Bilirubin Total 0.5 mg/dL (0.2-1.3); Blood Urea Nitrogen 18 mg/dL (7-17); Calcium 9.5 mg/dL (8.4-10.2); Carbon Dioxide 22 mmol/L (22-32); Chloride 109 mmol/L (98-107); Estimated Glomerular Filt Rate > 60 mL/min (>60); Globulin 2.7 g/dL (1.7-4.1); Glucose 139 mg/dL (80-110); HEMOLYSIS 18 (0-50); Lipase 95 U/L (23-300); Potassium 3.2 mmol/L (3.4-5.1); Sodium 141 mmol/L (137-145); Total Protein 7.2 g/dL (6.3-8.2)
--- NOTE | 2023-09-08 23:41 | DI.CT.S_ITS ---
PROCEDURE: CT ABDOMEN PELVIS W CON INDICATIONS: abd pain, hx colitis TECHNIQUE: After the administration of intravenous contrast, axial sections acquired from the lung bases to the pubic symphysis. Coronal and sagittal reformats were performed. For radiation dose reduction, the following was used: automated exposure control, adjustment of mA and/or kV according to patient size. COMPARISON: [facility], CT, CT ABDOMEN PELVIS W CON, 02/21/2022, 8:55. FINDINGS: Image quality: Diagnostic. Lower Chest: Minor right base scarring. ABDOMEN: Liver: No solid mass. Gallbladder: No wall thickening or calcified stones. Biliary ducts: Mildly prominent extrahepatic common duct measuring 1.2 cm. It appears to taper at the ampulla and there are no CT findings of filling defects. Pancreas: Borderline pancreatic ductal dilatation. No other visible pancreatic abnormality. Spleen: Size is within normal limits. Adrenal Glands: No adrenal nodules. Kidneys and Ureters: Symmetric enhancement. No nephrolithiasis or hydronephrosis. No hydroureter. Left lower pole simple cyst. Stomach and Bowel: There diffuse decompression or spasm from the proximal transverse colon through the descending, sigmoid colon, and also seen in the rectum. There is mucosal hyperemia in the rectum and sigmoid colon. There is mild fat stranding along the serosal surface. Proximal colon demonstrates semi solid stool and mild distension. Surgically absent appendix. Small bowel loops are decompressed. Stomach is normal. Peritoneum: No abnormal intraperitoneal fluid. No free air. Ventral Wall: No significant ventral hernia. Abdominal Nodes: No retroperitoneal or mesenteric adenopathy by size criteria. Vessels: Aorta and inferior vena cava are normal in size. Moderate abdominal aortic atherosclerotic calcification. PELVIS: Pelvic Organs: Partially obscured, but within normal limits. Bladder: Partially seen, within normal limits. Pelvic Nodes: No enlarged lymph nodes. Miscellaneous: No inguinal hernias are seen. Bones: Bilateral hip arthroplasties cause beam hardening artifact which obscures much of pelvis. Degenerative disc disease L4-5 and L5-S1. IMPRESSION: There are findings of colitis involving the transverse, descending, sigmoid colon, and rectum without evidence of perforation or abscess formation. The proximal colon is slightly distended and there may be a partial functional obstruction. Dictated by: Milla Ovalle M.D. on 09/09/2023 at 1:06 Approved by: Milla Ovalle M.D. on 09/09/2023 at 1:13
[2023-09-09] VITALS (10 sets, daily range): BP systolic 98–113; BP diastolic 51–62; PULSE 63–81; RESP 17–19; TEMP 36.6–37.1; O2SAT 86–98; BMI 22.6
[2023-09-09] MEDS: POTASSIUM CHLORIDE IN WATER 10 MEQ/100 ML PIGGYBACK 100 MEQ IV ×2 (00:32→01:26)
--- NOTE | 2023-09-09 01:04 | PC.NURSE ---
diarrhea for several days, with bright red blood in stool tonight. History of chronic diarrhea, no bloody stool in the past. Some abdominal cramping with it.
[2023-09-09] MEDS: metroNIDAZOLE 500 MG/100 ML PIGGYBACK 100 MG IV (01:57)
[2023-09-09] MEDS: CIPROFLOXACIN 400 MG/200 ML PIGGYBACK 200 MG IV (03:03)
--- NOTE | 2023-09-09 03:39 | PM.HP.1 ---
History of Present Illness History of Present Illness Date Patient Seen: 09/09/23 Chief complaint: Colitis Flare Narrative: 68 y/o diagnosed with microscopic / collagenous colitis on colonoscopy and Bx by [facility] in [place] in 2019. He prescribed a medicine that costs $3,000 a month so she could not afford it. She was put on naltrexone by a local physician that helped controlling the symptoms of diarrhea, cramps. She was symptoms free for some time now but 4 days ago she started having loose stools and on a day of admission with bright red blood in it. Workup showing inflammation of large section of colon, transverse, descending, sigmoid and rectum and unremarkable labs. [facility] Medical History (Updated 09/09/23 @ 01:36 by Felipe Ramirez MD) Renal function test abnormal Vision disorder Plantar warts Anxiety Migraines Shoulder pain Hepatitis B Chicken pox Cataracts, bilateral Abnormal Pap smear of cervix Hyperthyroidism Graves disease Skin cancer Cervical cancer Surgical History Anesthesia History of hip replacement Family History Father Alcoholism Cancer of bladder Diabetes mellitus Emphysema Mental health problem Mother Alcoholism Grandmother Alzheimer's disease Grandfather Emphysema Grandmother No problems noted. Social History marital status: unmarried,single household members: none lives independently: Yes occupational status: previously employed Smoking Status: Former smoker Tobacco: How many years used: 48 second hand exposure: No alcohol intake: current substance use type: marijuana Meds Home Medications and Allergies Home Medications Medication Instructions Recorded Confirmed Type levothyroxine 75 mcg tablet See Rx Instructions PO .6 days a 11/04/18 09/08/23 History week levothyroxine 88 mcg tablet See Rx Instructions PO .one day a 11/04/18 09/08/23 History week acetaminophen 500 mg tablet 1,000 mg (2 x 500 mg) PO Q6H #30 02/26/22 09/09/23 Rx (Acetaminophen Extra Strength) tabs ibuprofen 600 mg tablet 600 mg PO Q6H #20 tabs 02/26/22 09/09/23 Rx naltrexone 50 mg tablet mg PO DAILY 09/08/23 History Allergies Allergy/AdvReac Type Severity Reaction Status Date / Time taylor [TAYLOR] Allergy Intermediate blisters Verified 04/09/22 14:39 Review of Systems Constitutional Comments: no sweats, chills, fever Cardiovascular Comments: w/o palpitations Respiratory Comments: w/o SOB Gastrointestinal Comments: see HPI. w/o abdominal pain or vomiting. Episodic nausea. Genitourinary Comments: w/o dysuria or hematuria Musculoskeletal Comments: w/o myalgia Exam Vital Signs (past 8 hours): - 09/08/23 22:12 09/08/23 22:13 09/08/23 22:13 Temperature Pulse Rate 73 71 Respiratory Rate Blood Pressure 122/72 Pulse Oximetry 78 L 87 L Oxygen Delivery Method 09/08/23 22:17 09/08/23 22:30 09/08/23 22:31 Temperature 98.5 F Pulse Rate 62 69 62 Respiratory Rate 18 Blood Pressure 122/72 Pulse Oximetry 99 98 97 Oxygen Delivery Method Room Air 09/08/23 22:31 09/08/23 23:00 09/08/23 23:00 Temperature Pulse Rate 65 Respiratory Rate Blood Pressure 130/60 113/56 L Pulse Oximetry 94 Oxygen Delivery Method 09/08/23 23:30 09/08/23 23:30 09/09/23 00:04 Temperature Pulse Rate 69 77 Respiratory Rate Blood Pressure 109/59 L Pulse Oximetry 95 86 L Oxygen Delivery Method 09/09/23 00:26 09/09/23 00:26 09/09/23 00:30 Temperature Pulse Rate 81 Respiratory Rate Blood Pressure 111/57 L 109/57 L Pulse Oximetry 97 Oxygen Delivery Method 09/09/23 00:30 09/09/23 01:00 09/09/23 01:00 Temperature Pulse Rate 73 77 Respiratory Rate Blood Pressure 110/57 L Pulse Oximetry 97 97 Oxygen Delivery Method 09/09/23 01:30 09/09/23 01:30 09/09/23 02:00 Temperature Pulse Rate 71 Respiratory Rate Blood Pressure 113/58 L 111/62 Pulse Oximetry 96 Oxygen Delivery Method 09/09/23 02:00 09/09/23 02:30 09/09/23 02:30 Temperature Pulse Rate 70 75 Respiratory Rate Blood Pressure 107/57 L Pulse Oximetry 98 96 Oxygen Delivery Method Oxygen Delivery Method Room Air Const Other: in no distress, underweight HENMT Other: normocephalic Eyes Other: eomi mild exophtalmos Neck Other: w/o thyromegaly Resp Other: normal respiratory effort Neuro Other: w/o deficits Psych Other: Anxious. Memory deficits. Objective Labs 09/08/23 22:10 09/08/23 22:10 Labs: Laboratory Results - last 24 hr 09/08/23 22:10 WBC 10.3 RBC 4.44 Hgb 13.0 Hct 39.2 MCV 88.4 MCH 29.2 MCHC 33.1 RDW 13.7 Plt Count 399 Neut % (Auto) 37.5 L Lymph % (Auto) 53.7 H [place] % (Auto) 5.6 Eos % (Auto) 2.2 Baso % (Auto) 1.0 Neut # (Auto) 3800 Lymph # (Auto) 5500 H [place] # (Auto) 600 Eos # (Auto) 200 Baso # (Auto) 100 Sodium 141 Potassium 3.2 L Chloride 109 H Carbon Dioxide 22 BUN 18 H Creatinine 0.85 Estimated GFR > 60 BUN/Creatinine Ratio 21.2 Glucose 139 H Calcium 9.5 Total Bilirubin 0.5 AST 41 H ALT 18 Alkaline Phosphatase 61 Total Protein 7.2 Albumin 4.5 Globulin 2.7 Albumin/Globulin Ratio 1.7 Lipase 95 Assessment & Plan Assessment and plan (1) Acute lower gastrointestinal hemorrhage: Status: Acute (2) Colitis: Status: Acute (3) Collagenous colitis: Problem details: Per biopsy done 02/[address] Briseno Status: Chronic (4) Hypothyroidism (acquired): Status: Chronic (5) Primary osteoarthritis of shoulders, bilateral: Status: Chronic (6) History of radioactive iodine thyroid ablation: Status: Inactive (7) History of Graves' disease: Status: Inactive (8) History of hepatitis B virus infection: Status: Chronic (9) Hypokalemia: Status: Acute Assessment & Plan narrative: Colitis Flare - in 2019 had biopsy, diagnosed with collagenous colitis - on naltrexone - given dose of Flagyl and Cipro in ED - this looks more inflammatory - Solumedrol 40 mg x 1 - poor historian and record not available - clear liquid diet, IVFs, observation - record from GI should be obtained, otherwise GI consultation - if bleeding and diarrhea subside, she can DC home on oral abx /steroid / both - clear liquid diet - advanced diet should be lactose free or supplemented with lactaid Lower GI Bleed - counts WNR on a 1st blood draw - monitored Hypothyroidism - Synthroid DVT prophylaxis - SCDs GI prophylaxis - PPI
--- NOTE | 2023-09-09 03:50 | PC.NURSE ---
Pt arrive to 217 via stretcher from ED. AOx4, independent. VSS. Pt states having a bloody bowel movement last night around 10pm and has chronic loose stool. Denies any abd pain at this time, no fever. Clindamycin infusing in R AC. No needs at this time, will monitor. Call light in reach
[2023-09-09] MEDS: DEXTROSE 5%-0.45NS W/KCL 20MEQ 1,000 ML 100 MEQ IV (04:27)
[2023-09-09] MEDS: LEVOTHYROXINE 75 MCG TABLET PO (06:13)
[2023-09-09 07:46] LABS: Amorphous Sediment Urine 1+; Bacteria Urine None Seen; Culture Indicated Urine Cult Not Indicated; RBC Urine 0-1/HPF (0-5/HPF); Squamous Epithelial Cell Urine None Seen (0-5/HPF); Urine Volume 10mL (spun); WBC Urine None Seen (0-5/HPF)
--- NOTE | 2023-09-09 08:10 | PM.HP.1 ---
History of Present Illness History of Present Illness Date Patient Seen: 09/09/23 Chief complaint: Colitis Flare Narrative: 68 y/o diagnosed with microscopic / collagenous colitis on colonoscopy and Bx by [facility] in [place] in 2019. He prescribed a medicine that costs $3,000 a month so she could not afford it. She was put on naltrexone by a local physician that helped controlling the symptoms of diarrhea, cramps. She was symptoms free for some time now but 4 days ago she started having loose stools and on a day of admission with bright red blood in it. Workup showing inflammation of large section of colon, transverse, descending, sigmoid and rectum and unremarkable labs. [facility] Medical History (Updated 09/09/23 @ 01:36 by Felipe Ramirez MD) Renal function test abnormal Vision disorder Plantar warts Anxiety Migraines Shoulder pain Hepatitis B Chicken pox Cataracts, bilateral Abnormal Pap smear of cervix Hyperthyroidism Graves disease Skin cancer Cervical cancer Surgical History Anesthesia History of hip replacement Family History Father Alcoholism Cancer of bladder Diabetes mellitus Emphysema Mental health problem Mother Alcoholism Grandmother Alzheimer's disease Grandfather Emphysema Grandmother No problems noted. Social History marital status: unmarried,single household members: none lives independently: Yes occupational status: previously employed Smoking Status: Former smoker Tobacco: How many years used: 48 second hand exposure: No alcohol intake: current substance use type: marijuana Meds Home Medications and Allergies Home Medications Medication Instructions Recorded Confirmed Type levothyroxine 75 mcg tablet See Rx Instructions PO .6 days a 11/04/18 09/08/23 History week levothyroxine 88 mcg tablet See Rx Instructions PO .one day a 11/04/18 09/08/23 History week acetaminophen 500 mg tablet 1,000 mg (2 x 500 mg) PO Q6H #30 02/26/22 09/09/23 Rx (Acetaminophen Extra Strength) tabs ibuprofen 600 mg tablet 600 mg PO Q6H #20 tabs 02/26/22 09/09/23 Rx naltrexone 50 mg tablet 50 mg PO DAILY 09/08/23 09/09/23 History budesonide 3 mg 9 mg (3 x 3 mg) PO DAILY #180 ea 09/09/23 Rx capsule,delayed,extended release Allergies Allergy/AdvReac Type Severity Reaction Status Date / Time taylor [TAYLOR] Allergy Intermediate blisters Verified 04/09/22 14:39 Review of Systems Constitutional Comments: no sweats, chills, fever Cardiovascular Comments: w/o palpitations Respiratory Comments: w/o SOB Gastrointestinal Comments: see HPI. w/o abdominal pain or vomiting. Episodic nausea. Genitourinary Comments: w/o dysuria or hematuria Musculoskeletal Comments: w/o myalgia Exam Vital Signs (past 8 hours): - 09/09/23 00:26 09/09/23 00:26 09/09/23 00:30 Temperature Pulse Rate 81 Respiratory Rate Blood Pressure 111/57 L 109/57 L Pulse Oximetry 97 Oxygen Delivery Method Oxygen Flow Rate 09/09/23 00:30 09/09/23 01:00 09/09/23 01:00 Temperature Pulse Rate 73 77 Respiratory Rate Blood Pressure 110/57 L Pulse Oximetry 97 97 Oxygen Delivery Method Oxygen Flow Rate 09/09/23 01:30 09/09/23 01:30 09/09/23 02:00 Temperature Pulse Rate 71 Respiratory Rate Blood Pressure 113/58 L 111/62 Pulse Oximetry 96 Oxygen Delivery Method Oxygen Flow Rate 09/09/23 02:00 09/09/23 02:30 09/09/23 02:30 Temperature Pulse Rate 70 75 Respiratory Rate Blood Pressure 107/57 L Pulse Oximetry 98 96 Oxygen Delivery Method Oxygen Flow Rate 09/09/23 03:53 09/09/23 04:10 Temperature 97.9 F Pulse Rate 76 Respiratory Rate 19 Blood Pressure 113/56 L Pulse Oximetry 98 Oxygen Delivery Method Room Air Oxygen Flow Rate 0 Oxygen Delivery Method Room Air Oxygen Flow Rate 0 Const Other: in no distress, underweight HENMT Other: normocephalic Eyes Other: eomi mild exophtalmos Neck Other: w/o thyromegaly Resp Other: normal respiratory effort Neuro Other: w/o deficits Psych Other: Anxious. Memory deficits. Objective Labs 09/08/23 22:10 09/08/23 22:10 Labs: Laboratory Results - last 24 hr 09/08/23 09/09/23 22:10 04:25 WBC 10.3 RBC 4.44 Hgb 13.0 Hct 39.2 MCV 88.4 MCH 29.2 MCHC 33.1 RDW 13.7 Plt Count 399 Neut % (Auto) 37.5 L Lymph % (Auto) 53.7 H Gates % (Auto) 5.6 Eos % (Auto) 2.2 Baso % (Auto) 1.0 Neut # (Auto) 3800 Lymph # (Auto) 5500 H Gates # (Auto) 600 Eos # (Auto) 200 Baso # (Auto) 100 Sodium 141 Potassium 3.2 L Chloride 109 H Carbon Dioxide 22 BUN 18 H Creatinine 0.85 Estimated GFR > 60 BUN/Creatinine Ratio 21.2 Glucose 139 H Calcium 9.5 Total Bilirubin 0.5 AST 41 H ALT 18 Alkaline Phosphatase 61 Total Protein 7.2 Albumin 4.5 Globulin 2.7 Albumin/Globulin Ratio 1.7 Lipase 95 Urine RBC 0-1/hpf Urine WBC None seen Ur Squamous Epith Cells None seen Amorphous Sediment 1+ Urine Bacteria None seen Ur Culture Indicated? Cult not indicated Vol Urine Centrifuged 10ml (spun) Assessment & Plan Assessment & Plan narrative: Microscopic Colitis Flare vs gastroenteritis - in 2019 had biopsy, diagnosed with collagenous colitis - on naltrexone - given dose of Flagyl and Cipro in ED - this looks more inflammatory - Solumedrol 40 mg x 1 - poor historian and record not available - clear liquid diet, IVFs, observation - started budesonide 9mg daily x6 weeks for presumed microscropic colitis flare Hypothyroidism - Synthroid DVT prophylaxis - SCDs GI prophylaxis - PPI
[2023-09-09] MEDS: PANTOPRAZOLE 40 MG VIAL 20 MG IV (08:52)
--- NOTE | 2023-09-09 12:02 | PM.DS.1 ---
History of Present Illness History of Present Illness Chief complaint: Colitis Flare Narrative: 68 y/o diagnosed with microscopic / collagenous colitis on colonoscopy and Bx by [facility] in [place] in 2019. He prescribed a medicine that costs $3,000 a month so she could not afford it. She was put on naltrexone by a local physician that helped controlling the symptoms of diarrhea, cramps. She was symptoms free for some time now but 4 days ago she started having loose stools and on a day of admission with bright red blood in it. Workup showing inflammation of large section of colon, transverse, descending, sigmoid and rectum and unremarkable labs. Discharge Providers Provider Date of admission: 09/09/23 03:20 Discharge Date: 09/09/23 Primary care physician: Isha Parrish local coordinator provider: Arnav De Oliveira DO Summary Hospital Course Discharge Diagnosis: Microscopic Colitis Flare vs gastroenteritis - in 2019 had biopsy, diagnosed with collagenous colitis - on naltrexone - given dose of Flagyl and Cipro in ED - this looks more inflammatory - Solumedrol 40 mg x 1 - poor historian and record not available - clear liquid diet, IVFs, observation - started budesonide 9mg daily x6 weeks for presumed microscropic colitis flare Hypothyroidism - Synthroid Hospital Course: Admitted for abd pain and found to have colitis. Presumed due to microscropic colitis flare, so given IV steroids and her diarrhea resolved. Placed on budesonide 9mg daily x6 weeks and she will f/up with GI in clinic. Exam Vital Signs (past 8 hours): - 09/09/23 04:10 09/09/23 08:41 09/09/23 11:49 Temperature 98.6 F 98.7 F Pulse Rate 67 63 Respiratory Rate 18 17 Blood Pressure 111/57 L 98/51 L Pulse Oximetry 96 97 Oxygen Delivery Method Room Air Oxygen Flow Rate 0 0 Oxygen Delivery Method Room Air Oxygen Flow Rate 0 Const Other: in no distress, underweight HENMT Other: normocephalic Eyes Other: eomi mild exophtalmos Neck Other: w/o thyromegaly Resp Other: normal respiratory effort GI Other: minimal tenderness to palpation Neuro Other: w/o deficits Psych Other: Anxious. Memory deficits. Objective Labs 09/08/23 22:10 09/08/23 22:10 Labs: Laboratory Results - last 24 hr 09/08/23 09/09/23 22:10 04:25 WBC 10.3 RBC 4.44 Hgb 13.0 Hct 39.2 MCV 88.4 MCH 29.2 MCHC 33.1 RDW 13.7 Plt Count 399 Neut % (Auto) 37.5 L Lymph % (Auto) 53.7 H [place] % (Auto) 5.6 Eos % (Auto) 2.2 Baso % (Auto) 1.0 Neut # (Auto) 3800 Lymph # (Auto) 5500 H [place] # (Auto) 600 Eos # (Auto) 200 Baso # (Auto) 100 Sodium 141 Potassium 3.2 L Chloride 109 H Carbon Dioxide 22 BUN 18 H Creatinine 0.85 Estimated GFR > 60 BUN/Creatinine Ratio 21.2 Glucose 139 H Calcium 9.5 Total Bilirubin 0.5 AST 41 H ALT 18 Alkaline Phosphatase 61 Total Protein 7.2 Albumin 4.5 Globulin 2.7 Albumin/Globulin Ratio 1.7 Lipase 95 Urine RBC 0-1/hpf Urine WBC None seen Ur Squamous Epith Cells None seen Amorphous Sediment 1+ Urine Bacteria None seen Ur Culture Indicated? Cult not indicated Vol Urine Centrifuged 10ml (spun) [facility] Medical History (Updated 09/09/23 @ 01:36 by Felipe Ramirez MD) Renal function test abnormal Vision disorder Plantar warts Anxiety Migraines Shoulder pain Hepatitis B Chicken pox Cataracts, bilateral Abnormal Pap smear of cervix Hyperthyroidism Graves disease Skin cancer Cervical cancer Surgical History Anesthesia History of hip replacement Family History Father Alcoholism Cancer of bladder Diabetes mellitus Emphysema Mental health problem Mother Alcoholism Grandmother Alzheimer's disease Grandfather Emphysema Grandmother No problems noted. Social History marital status: unmarried,single household members: none lives independently: Yes occupational status: previously employed Smoking Status: Former smoker Tobacco: How many years used: 48 second hand exposure: No alcohol intake: current substance use type: marijuana Discharge Plan Discharge Plan Patient Disposition: Home Provider Discharge Comment: Please take budesonide daily for 6 weeks until you can follow-up with GI in clinic. Discharge orders & Medications Prescriptions: New budesonide 3 mg Capsule,Delayed,Extend.Release 9 mg PO DAILY Qty: 180 0RF Continued levothyroxine 75 mcg tablet See Rx Instructions PO .6 days a week Patient Comments: 1 tablet PO 6 days a week. Rx Instructions: takes 75mcg all days except Friday levothyroxine 88 mcg tablet See Rx Instructions PO .one day a week Patient Comments: 1 tablet PO one day a week. Rx Instructions: 1 tablet by mouth on Wednesdays only. acetaminophen [Acetaminophen Extra Strength] 500 mg tablet 1,000 mg PO Q6H Qty: 30 0RF ibuprofen 600 mg tablet 600 mg PO Q6H Qty: 20 0RF Rx Instructions: take with a little bit of food. Alternate with Tylenol. naltrexone 50 mg Tablet 50 mg PO DAILY Follow up/Referrals: Isha Parrish RN [Primary Care Provider] - Visit Report/Discharge Packet Stand Alone Forms: Patient Portal/API, Stroke Signs & Symptoms Discharge Data Primary Care Provider: Isha Parrish Attending Provider: Jaden Magana Admit Date/Time: 09/09/23 03:20
--- NOTE | 2023-09-09 13:07 | PC.NURSE ---
Pt is dressed and ready for discharge home with friend. IV has been removed. Went over d/c instructions with Pt - discussed d/c meds, time of last dose, reviewed stroke education, encouraged Pt to drink plenty of fluids to prevent constipation or dehydration, reminded Pt to try to avoid inflammatory foods and beverages, to call her doctor if she has increased bloody stools and diarrhea, and to follow up with her GI doctor in 6 weeks. Pt denied further questions and was taken out via w/c by PHOTOGRAPH FINISHER to POV with Friend and all belongings.
--- NOTE | 2023-09-09 13:47 | CM.DANOTE ---
DCP Assessment note Pt is a 68yo F here following colitis flare under OBS status and the care of the hospitalist team PCP Isha Parrish Payer Medicare and [place] ASSISTANT ASSOCIATE PROFESSOR reviewed EMR. Per hospitalist in morning rounds, anticipate dc home today no needs. Per chart review, pt lives alone in [place] but has local supportive friends. Pt left prior to being seen by this author. Plan: dc home today with OP GI f/u and friend support. Friend to transport home. No CM needs identified/barriers to safe dc home. ROMARIO Bearden Discharge Planning/Care Management Advanced directive, confirm from FAMILY Start: 09/09/23 03:59 Freq: Q24H Status: Discharge Protocol: Document 09/09/23 03:59 AT (Rec: 09/09/23 04:10 AT [id number]) Advance Directive, confirm on record Time 04:10 Person contacted self Copy received No CM Discharge Assessment Start: 09/09/23 13:46 Freq: Status: Active Protocol: Document 09/09/23 13:47 SL (Rec: 09/09/23 13:47 SL [id number]) Discharge Planning Assessment Assigned Contaminated Land Consultant ROMARIO Viera Advance Directives? Yes Advance Directives on File No History Provided By Patient,Medical Record Prior Living Arrangements House Household Members none Barriers to Discharge No Discharge Plan Home Transportation Arrangement Friend Pham [place] Referrals Initiated None needed Additional Comment At this time. Whiteboard Updated in Patient Room with No name and ext. # of Contaminated Land Consultant Review Status In Process Please Provide Date Initial DC 09/09/23 Assessment Was Performed Next Review Type Continued Stay Review
== END 2023-09-09 13:11 | disposition home or self-care (01) ==
LOC: ED 09-09 03:16 → AC 09-09 03:21
PROVIDERS: Admitting Provider Internal Medicine; Emergency Provider Emergency Medicine; PCP Nurse Practitioner Family; Referring Provider Emergency Medicine; Visit Provider Internal Medicine
DX: K52.831 Collagenous colitis (principal); K92.1 Melena; E03.9 Hypothyroidism, unspecified; Z86.19 Personal history of other infectious and parasitic diseases; Z86.39 Personal history of other endocrine, nutritional and metabolic disease
CPT/HCPCS: 36415; 74177; 80053; 81015; 83690; 85025; 87040; 96365; 96366; 96367; 96375; 99284; 99285; G0378; C9113; J0744; J2919; Q9967

== ENCOUNTER → 2023-09-25 13:43 | Outpatient (CLI) | payer MEDICARE, OTHER, SELFPAY ==
[2023-09-09 03:29] VITALS: BMI 22.6
--- NOTE | 2023-09-25 13:44 | DI.CT.S_ITS ---
PROCEDURE: CT SHOULDER LEFT WITHOUT CON INDICATIONS: Primary osteoarthritis, left shoulder TECHNIQUE: Noncontrast 0.75 mm thick sections acquired from the acromioclavicular joint to the inferior scapula, with coronal and sagittal reformatting. COMPARISON: None. FINDINGS: Image quality: Excellent. Bones: [id number] acromioclavicular joint osteoarthritic changes are seen with joint space narrowing, subchondral sclerosis and downward osteophyte formation depressing the musculotendinous junction of supraspinatus. Moderate to severe glenohumeral joint osteoarthritic changes are seen with near complete loss of joint space, extensive subchondral sclerosis and prominent marginal osteophyte formation. No acute fracture or dislocation. No suspicious bony lesions. The visualized left ribs are intact. Soft tissues: There is no full-thickness rotator cuff tendon rupture. No significant rotator cuff muscle atrophy. No abnormal soft tissue calcifications. Small to moderate amount of joint effusion and subacromial subdeltoid bursal fluid is seen, no gross loose bodies. No left axillary lymphadenopathy by size criteria. The visualized left lung field is clear. IMPRESSION: 1. Severe glenohumeral joint osteoarthritis and [id number] acromioclavicular joint osteoarthritis. No shoulder fracture or dislocation. No suspicious bony lesions. 2. Moderate joint effusion and subacromial subdeltoid bursal fluid, no loose bodies. No abnormal soft tissue calcifications. 3. No full-thickness rotator cuff tendon rupture. No significant rotator cuff muscle atrophy. Dictated by: Yoni Hernandez M.D. on 09/25/2023 at 16:31 Approved by: Yoni Hernandez M.D. on 09/25/2023 at 16:36
== END ==
PROVIDERS: PCP Nurse Practitioner Family; Referring Provider Orthopaedic Surgery; Visit Provider Orthopaedic Surgery
DX: M19.012 Primary osteoarthritis, left shoulder (principal); M25.412 Effusion, left shoulder
CPT/HCPCS: 73200

== ENCOUNTER → 2023-10-03 08:59 | Outpatient (CLI) | payer MEDICARE, OTHER, SELFPAY ==
[2023-09-09 03:29] VITALS: BMI 22.6
--- NOTE | 2023-10-03 | DI.CT.S_ITS ---
PROCEDURE: CT LUNG LOW DOSE SCREENING INDICATIONS: Nicotine dependence, cigarettes, in remission TECHNIQUE: Noncontrast 2.0-2.5 mm thick sections acquired from the pulmonary apices to the posterior costophrenic angles. 7 mm thick axial MIP, and 5 mm coronal and sagittal reformats were then acquired. For radiation dose reduction, the following was used: automated exposure control, adjustment of mA and/or kV according to patient size. COMPARISON: [facility], CT, CT CHEST ABD PEL W CON, 02/26/2022, 15:54. FINDINGS: Image quality: Diagnostic. Lower Neck: No enlarged lymph nodes. Thyroid: No thyroid nodules which require sonographic follow up, per consensus guidelines. Axillae: No enlarged lymph nodes. Chest Wall: Unremarkable. Bones: Chronic appearing fracture deformity left clavicle and sternum. Degenerative changes of the spine. Lungs and Pleura: No pneumothorax or pleural effusions. Scattered ground-glass nodules are present. For example a 9 millimeter ground-glass nodule the left upper lobe (/88). Right upper lobe ground-glass nodule measuring 7 millimeters (3/79). Right lower lobe linear atelectasis versus scarring. Right upper lobe calcified granuloma measuring 3 millimeters. Heart: Heart size is normal. No pericardial effusion. Thoracic Vessels: The aorta and pulmonary arteries demonstrate normal size. Mediastinum and Maddi: No enlarged lymph nodes. Esophagus: No wall thickening. No hiatal hernia. Upper Abdomen: Visualized upper abdomen solid organs and bowel loops appear normal. IMPRESSION: Scattered subcentimeter ground-glass pulmonary nodules. LUNG-RADS 2; continued annual screening, if eligible. Dictated by: Christian Chairez M.D. on 10/03/2023 at 11:12 Approved by: Christian Chairez M.D. on 10/03/2023 at 11:18
== END ==
LOC: CT 09:00
PROVIDERS: PCP Nurse Practitioner Family; Referring Provider Nurse Practitioner Family; Visit Provider Nurse Practitioner Family
DX: F17.211 Nicotine dependence, cigarettes, in remission (principal); Z12.2 Encounter for screening for malignant neoplasm of respiratory organs; R91.8 Other nonspecific abnormal finding of lung field
CPT/HCPCS: 71271

== ENCOUNTER 2023-10-09 07:59 | Day surgery (SDC) | payer MEDICARE, OTHER, SELFPAY ==
[2022-02-21 16:49] VITALS: BMI 19.9
[2023-09-09 03:29] VITALS: BMI 22.6
[2023-09-30 09:44] VITALS: BMI 19.5
[2023-10-09] VITALS (13 sets, daily range): BP systolic 94–142; BP diastolic 51–72; PULSE 54–78; RESP 10–19; TEMP 36.1–36.9; O2SAT 94–99; BMI 19.5
--- NOTE | 2023-10-09 07:35 | DI.RAD.S_ITS ---
PROCEDURE: XR SHOULDER LT 1V INDICATIONS: TSA TECHNIQUE: 1 views of the shoulder were acquired. COMPARISON: None. FINDINGS: Bones: Left shoulder reverse total arthroplasty postsurgical changes. Hardware components are in expected position. No fractures or dislocations. No suspicious bony lesions. Visualized ribs appear intact. Soft tissues: No suspicious soft tissue calcifications. IMPRESSION: Expected postsurgical change for left shoulder reverse arthroplasty. Dictated by: Preeti López MD, PhD on 10/09/2023 at 12:40 Approved by: Preeti López MD, PhD on 10/09/2023 at 12:41
[2023-10-09] MEDS: ACETAMINOPHEN 325 MG TABLET 975 MG PO (08:56)
[2023-10-09] MEDS: LACTATED RINGERS 1,000 ML 42 ML IV (08:56)
--- NOTE | 2023-10-09 09:58 | PM.PREOP ---
Pre-operative Note Interval Note History & Physical reviewed/Exam performed by Physician: Yes Changes to H&P: No
[2023-10-09 10:01] LABS: HEMOLYSIS < 15 (0-50); Potassium 3.8 mmol/L (3.4-5.1)
[2023-10-09 10:33] LABS: HEMOLYSIS < 15 (0-50); Potassium 3.9 mmol/L (3.4-5.1)
[2023-10-09] MEDS: CEFAZOLIN 2 GM/100 ML PREMIX 100 ML IV (10:57)
[2023-10-09] MEDS: TRANEXAMIC ACID 1,000 MG VIAL 1000 MG INJ (11:06)
--- NOTE | 2023-10-09 11:22 | SUR.OPER ---
Beach chair with Julianna/Uri shoulder positioner. Lower body on padded OR bed. Head in foam padded head cradle, secured with straps. Non-operative arm secured <90 degrees abduction. Pillow under knees. Safety belt at thigh. Cloth tape over blanket over lower legs.
[2023-10-09] MEDS: BUPIVACAINE 0.25% (PF) 30 ML, EPINEPHrine 0.15 MG INJ (11:32)
--- NOTE | 2023-10-09 12:09 | P.OP_ITS ---
Operative Date/Time/Diagnoses Date of procedure: 10/09/23 Time of procedure: 12:09 Pre-op diagnosis: Left glenohumeral arthritis Post-op diagnosis: same Procedure & Clinicians Procedure: Left reverse total shoulder arthroplasty Same procedure as scheduled: Yes Indications: Indications: This is a 68-year-old female who has left glenohumeral arthritis. Symptoms have been present for years, insidious onset. Patient has failed a reasonable attempt at conservative therapy. After extensive discussion in clinic, they wished to go forward with surgery. Risks and benefits were described including the risk of infection, bleeding, damage to internal structures including nerves. We also discussed the risk of failure of surgery and the need for revision surgery as well as the risk of anesthesia. The patient expressed understanding with these risks and wished to go forward with surgery. Surgeon: Tian Tracey Welder Production Line Gas: Chikis Hamm Anesthesia Type: General Operative Notes Findings: Findings: Osteoarthritis of the glenoid and humeral head as noted on preoperative imaging and under direct visualization Closure Type: primary Specimen(s): none sent Prosthetic devices, grafts, tissues, transplants, or devices: Tornier implants Base plate: standard 25 mm, +3 mm offset Glenosphere: Standard 36 mm Stem: Perform 3 Poly: +0 concentric Estimated Blood Loss (mL): 100 Blood products transfused: none Procedure in detail: Patient was seen in the preoperative holding unit. The correct left shoulder was identified and marked with my initials. Again we discussed the risks and benefits of surgery and they wished to go forward with surgery. The patient was brought back to the operating room and placed supine on the operating table. Smooth endotracheal intubation was performed by anesthesia. All prominences were padded and they were placed into the beach chair position. Intravenous antibiotics were given. The left shoulder was then prepped with the standard sterile preparation and draping. A time-out was then performed in my initials were again identified on the correct shoulder. 1 g of IV tranexamic acid was given. A standard deltopectoral incision was made. Skin flaps were made. The cephalic vein was identified and retracted laterally. This was protected throughout the remainder of the case. Sharp dissection was made along the deltoid, subacromial and subcoracoid space to release adhesions. The conjoined tendon was identified and the axillary nerve was palpated and continuous using the tug test. It was protected throughout the remainder of the case. A brown retractor was placed underneath the deltoid muscle and a darach retractor underneath the conjoint tendon. The subscapularis muscle was ntoed to be intact. The anterior circumflex artery and associated veins on the lower border of the subscapularis were identified and tied off using 0-Vicryl. The biceps tendon was identified in the bicipital groove. This was released from its sheath, and taken from its origin on the glenoid and tied into the pectoralis tendon for a solid tenodesis. We then began a subscapularis peel. The subscapularis was tagged with an Ethibond suture. A 360 degree circumferential release of the subscapularis was performed with protection of the axillary nerve. The coracohumeral ligament was released at the base of the coracoid. The shoulder was then dislocated. Osteophytes were removed using combination of rongeur and osteotome. The rotator cuff was noted to be intact. An intramedullary guide was used set at version of 20?. Using an oscillating saw a conservative humeral head cut was made. Impaction reamers were reamed up to a size 3 stem with a built-in angle 135?. A neck protector was placed. Attention was then turned to the glenoid. After retracting the humeral head posteriorly a circumferential release was performed of the capsule with protection of the axillary nerve. The labrum was then released starting at the biceps anchor and going around the rim a small amount of triceps was released from the inferior glenoid. A center guide pin was then placed using the guide, followed by Reamer. After adequate cartilage was removed the boss was reamed and the centeral hole was drilled and measured. The base plate was then implanted and screwed into place. The peripheral screws were then sequentially drilled, measured, and placed. A 36 standard glenosphere was then selected and screwed into place onto the base plate. Turning back to the humerus, the humeral head was delivered and trialed with a 0 concentric. The arm was taken through range of motion and this was felt to be stable. The trial was then removed and a dilute Betadine wash was then performed with 1 L of sterile saline. Before placing the final implant, drill holes were made in the bicipital groove for the subscapularis repair, and sutures were passed through the drill holes. The final stem was then impacted into the humerus. The shoulder was then reduced and again brought through range of motion and was felt to be stable. The subscapularis was then repaired using a modified racking hitch with nice loupes. The skin was closed with 2-0 vicryl and 3-0 Monocryl followed by Aquacel dressing. Patient was awoken from anesthesia and brought back to the postoperative recovery unit without issue. They were placed into a sling. Assisting participation: This operation could not have been safely performed (without compromising the technical results or length of the procedure) without the assistance of a skilled assistant professor surgical technology. The assistant professor surgical technology was medically necessary for proper positioning, retraction and manipulation of instruments, proper exposure, graft prep, and manipulation of tissue. Complications: none Post-operative Condition: stable Disposition: PACU Plan for aftercare: Postoperative instructions: Sling to remain on for 6 weeks. No external rotation past neutral for 6 weeks. Okay for the sling to come off for shower. Okay to shower over the Aquacel dressing. If any water gets underneath the dressing, remove the dressing. First postoperative visit in 2 weeks.
[2023-10-09] MEDS: LACTATED RINGERS 1,000 ML 100 ML IV (12:42)
--- NOTE | 2023-10-09 14:10 | SUR.PREOP ---
Block start time [1034 time out. needlee in at 1038] . Monitoring initiated and maintained throughout procedure. Oxygen and medications given per anesthesiologist.. Patient remained stable throughout procedure, no adverse reactions noted. Block end time [1041].
== END 2023-10-09 14:26 | disposition home or self-care (01) ==
LOC: OR 08:00 → AC 08:03
PROVIDERS: Anesthesiology; PCP Nurse Practitioner Family; Referring Provider Orthopaedic Surgery; Visit Provider Orthopaedic Surgery
PROC: (CPT 23472; principal; 2023-10-09 10:15)
DX: M19.012 Primary osteoarthritis, left shoulder (principal); G89.18 Other acute postprocedural pain; M25.712 Osteophyte, left shoulder
CPT/HCPCS: 23472; 64450; 73020; 84132; C1776; J0171; J0690; J1100; J2250; J2405; J2704; J3010

== ENCOUNTER → 2023-11-10 09:35 | Outpatient (CLI) | payer MEDICARE, OTHER, SELFPAY ==
[2023-09-09 03:29] VITALS: BMI 22.6
[2023-11-10 11:15] LABS: TSH w/ Reflex to FT4 0.92 uIU/mL (0.47-4.68)
== END ==
PROVIDERS: PCP Nurse Practitioner Family; Referring Provider Nurse Practitioner Family; Visit Provider Nurse Practitioner Family
DX: E03.9 Hypothyroidism, unspecified (principal)
CPT/HCPCS: 36415; 84443

== ENCOUNTER → 2024-01-05 10:07 | Outpatient (CLI) | payer MEDICARE, OTHER, SELFPAY ==
[2023-09-09 03:29] VITALS: BMI 22.6
--- NOTE | 2024-01-05 | DI.CT.S_ITS ---
PROCEDURE: CT UE RT WO CON INDICATIONS: Primary osteoarthritis, right shoulder; blueprint protocol TECHNIQUE: Noncontrast 0.75 mm thick sections acquired from the acromioclavicular joint to the inferior scapula, with coronal and sagittal reformatting. COMPARISON: [facility], CT, CT LUNG LOW DOSE SCREENING, 10/03/2023, 9:07. [facility], CT, CT UE RT WO CON, 08/25/2023, 12:15. FINDINGS: Image quality: Excellent; please note that this exam is performed for preoperative planning purposes. Bones: No acute fracture or dislocation. Joints: Severe glenohumeral osteoarthritis with joint space narrowing, osteophyte formation and subchondral cyst formation. Posterior decentering of the humeral head relative to the glenoid (2/113). Small glenohumeral joint effusion. Small amount of fluid in the long head of the biceps tendon sheath. 0.4 cm intra-articular body in the posterior joint capsule adjacent to the posterior labrum (3/82). Muscles: Mild atrophy of the supraspinatus and subscapularis. Otherwise, muscle bulk is preserved. Tendons: Preserved contour of the long head of the biceps tendon. Vessels: No aneurysmal dilatation of the visualized right axillary vasculature. Aortic arch calcifications. Lymph nodes: No right axillary lymphadenopathy. Other soft tissues: Re-identified 6 mm ground-glass right apical nodule (2/73), 3 mm right upper lobe nodule (2/98), and 5 mm right upper lobe ground-glass nodule (2/107) when compared to the low-dose chest CT of 10/03/2023. No other focal lung consolidation. IMPRESSION: 1. Severe glenohumeral osteoarthritis with posterior decentering of the humeral head relative to the glenoid. 2. Small joint effusion with mild long head of the biceps tendon tenosynovitis. 3. Re-identified right upper lobe pulmonary nodules. One year follow-up with low-dose chest CT in September 2024 recommended. Dictated by: Jake Day M.D. on 01/05/2024 at 15:57 Approved by: Jake Day M.D. on 01/05/2024 at 16:09
== END ==
PROVIDERS: PCP Nurse Practitioner Family; Referring Provider Orthopaedic Surgery; Visit Provider Orthopaedic Surgery
DX: M19.011 Primary osteoarthritis, right shoulder (principal); M75.21 Bicipital tendinitis, right shoulder; M25.411 Effusion, right shoulder; R91.8 Other nonspecific abnormal finding of lung field
CPT/HCPCS: 73200

== ENCOUNTER → 2024-02-23 09:22 | Outpatient (CLI) | payer MEDICARE, OTHER, SELFPAY ==
[2023-09-09 03:29] VITALS: BMI 22.6
[2024-02-23 12:09] LABS: Alanine Aminotransferase 18 IU/L (<35); Albumin 4.1 g/dL (3.5-5.0); Albumin Globulin Ratio 1.6 (1.0-2.8); Alkaline Phosphatase 59 U/L (38-126); Aspartate Aminotransferase 29 IU/L (14-36); BUN Creatinine Ratio 15.8 (6-22); Bilirubin Total 0.4 mg/dL (0.2-1.3); Blood Urea Nitrogen 16 mg/dL (7-17); Calcium 9.6 mg/dL (8.4-10.2); Carbon Dioxide 25 mmol/L (22-32); Chloride 107 mmol/L (98-107); Estimated Glomerular Filt Rate > 60 mL/min (>60); Globulin 2.6 g/dL (1.7-4.1); Glucose 90 mg/dL (80-110); HEMOLYSIS < 15 (0-50); Potassium 3.8 mmol/L (3.4-5.1); Sodium 139 mmol/L (137-145); Total Protein 6.7 g/dL (6.3-8.2)
[2024-02-23 12:37] LABS: TSH w/ Reflex to FT4 1.95 uIU/mL (0.47-4.68)
== END ==
PROVIDERS: PCP Nurse Practitioner Family; Referring Provider Nurse Practitioner Family; Visit Provider Nurse Practitioner Family
DX: E03.9 Hypothyroidism, unspecified (principal); K52.831 Collagenous colitis
CPT/HCPCS: 36415; 80053; 84443

== ENCOUNTER 2024-03-25 12:55 | Day surgery (SDC) | payer MEDICARE, OTHER, SELFPAY ==
[2023-09-09 03:29] VITALS: BMI 22.6
[2024-03-22 14:36] VITALS: BMI 21.1
[2024-03-25] VITALS (8 sets, daily range): BP systolic 99–128; BP diastolic 53–76; PULSE 68–97; RESP 13–20; TEMP 36.1–37.1; O2SAT 93–99; BMI 21.1; BMI 21.9
--- NOTE | 2024-03-25 06:00 | DI.RAD.S_ITS ---
PROCEDURE: XR SHOULDER RT 1V INDICATIONS: TSA TECHNIQUE: 1 views of the shoulder were acquired. COMPARISON: [facility], CR, XR SHOULDER LT MIN 2V, 11/17/2019, 15:17. FINDINGS: Bones: Patient is status post right glenohumeral joint reverse arthroplasty. Shoulder alignment is anatomic. No acute fracture or dislocation. Soft tissues: Expected postsurgical changes are seen in superior and lateral right shoulder soft tissue. IMPRESSION: Postop changes from right glenohumeral joint reverse arthroplasty with anatomic shoulder alignment. Dictated by: Yoni Hernandez M.D. on 03/25/2024 at 16:29 Approved by: Yoni Hernandez M.D. on 03/25/2024 at 16:30
[2024-03-25] MEDS: LACTATED RINGERS 1,000 ML 42 ML IV (13:54)
[2024-03-25] MEDS: ACETAMINOPHEN 325 MG TABLET 975 MG PO (13:54)
[2024-03-25] MEDS: CEFAZOLIN 2 GM/100 ML PREMIX 100 ML IV (14:20)
[2024-03-25] MEDS: TRANEXAMIC ACID 1,000 MG VIAL 1000 MG INJ (14:46)
[2024-03-25] MEDS: BUPIVACAINE 0.25% (PF) 30 ML, EPINEPHrine 0.15 MG INJ (14:47)
--- NOTE | 2024-03-25 15:33 | PM.OP.1 ---
Operative Date/Time/Diagnoses Date of procedure: 03/25/24 Time of procedure: 15:33 Pre-op diagnosis: Right glenohumeral arthritis Post-op diagnosis: same Procedure & Clinicians Procedure: Right reverse total shoulder arthroplasty Same procedure as scheduled: Yes Indications: Indications: This is a 68-year-old female who has right glenohumeral arthritis. Symptoms have been present for years, insidious onset. Patient has failed a reasonable attempt at conservative therapy. After extensive discussion in clinic, they wished to go forward with surgery. Risks and benefits were described including the risk of infection, bleeding, damage to internal structures including nerves. We also discussed the risk of failure of surgery and the need for revision surgery as well as the risk of anesthesia. The patient expressed understanding with these risks and wished to go forward with surgery. Surgeon: Tian Tracey Software Intern: Chikis Hamm Anesthesia Type: General Operative Notes Findings: Findings: Osteoarthritis of the glenoid and humeral head with intact rotator cuff as noted on preoperative imaging and under direct visualization Closure Type: primary Specimen(s): none sent Prosthetic devices, grafts, tissues, transplants, or devices: Tornier implants Base plate: standard 25 mm, full wedge Glenosphere: 39 eccentric Stem: Perform 3+ Poly: +3 55% coverage Estimated Blood Loss (mL): 200 Blood products transfused: none Procedure in detail: Patient was seen in the preoperative holding unit. The correct right shoulder was identified and marked with my initials. Again we discussed the risks and benefits of surgery and they wished to go forward with surgery. The patient was brought back to the operating room and placed supine on the operating table. Smooth endotracheal intubation was performed by anesthesia. All prominences were padded and they were placed into the beach chair position. Intravenous antibiotics were given. The right shoulder was then prepped with the standard sterile preparation and draping. A time-out was then performed in my initials were again identified on the correct shoulder. 1 g of IV tranexamic acid was given. A standard deltopectoral incision was made. Skin flaps were made. The cephalic vein was identified and retracted laterally. This was protected throughout the remainder of the case. Sharp dissection was made along the deltoid, subacromial and subcoracoid space to release adhesions. The conjoined tendon was identified and the axillary nerve was palpated and continuous using the tug test. It was protected throughout the remainder of the case. A brown retractor was placed underneath the deltoid muscle and a darach retractor underneath the conjoint tendon. The subscapularis muscle was ntoed to be intact. The anterior circumflex artery and associated veins on the lower border of the subscapularis were identified and tied off using 0-Vicryl. The biceps tendon was identified in the bicipital groove. This was released from its sheath, and taken from its origin on the glenoid and tied into the pectoralis tendon for a solid tenodesis. We then began a subscapularis peel. The subscapularis was tagged with an Ethibond suture. A 360 degree circumferential release of the subscapularis was performed with protection of the axillary nerve. The coracohumeral ligament was released at the base of the coracoid. The shoulder was then dislocated. Osteophytes were removed using combination of rongeur and osteotome. The rotator cuff was noted to be intact. An intramedullary guide was used set at version of 20?. Using an oscillating saw a conservative humeral head cut was made. Impaction reamers were reamed up to a size 3 stem with a built-in angle 135?. A neck protector was placed. Attention was then turned to the glenoid. After retracting the humeral head posteriorly a circumferential release was performed of the capsule with protection of the axillary nerve. The labrum was then released starting at the biceps anchor and going around the rim a small amount of triceps was released from the inferior glenoid. A center guide pin was then placed using the guide, followed by Reamer. After adequate cartilage was removed the boss was reamed and the centeral hole was drilled and measured. The base plate was then implanted and screwed into place. The peripheral screws were then sequentially drilled, measured, and placed. A 39 eccentric glenosphere was then selected and screwed into place onto the base plate. Turning back to the humerus, the humeral head was delivered and trialed with a +3. The arm was taken through range of motion and this was felt to be stable. The trial was then removed and a dilute Betadine wash was then performed with 1 L of sterile saline. Before placing the final implant, drill holes were made in the bicipital groove for the subscapularis repair, and sutures were passed through the drill holes. The final stem was then impacted into the humerus. The shoulder was then reduced and again brought through range of motion and was felt to be stable. The subscapularis was then repaired using a modified racking hitch with nice loupes. The deltopectoral interval was then closed with #2 Ethibond. The skin was closed with 2-0 vicryl and 3-0 Monocryl followed by Aquacel dressing. Patient was awoken from anesthesia and brought back to the postoperative recovery unit without issue. They were placed into a sling. Assisting participation: This operation could not have been safely performed (without compromising the technical results or length of the procedure) without the assistance of a skilled certified surgical technician. The certified surgical technician was medically necessary for proper positioning, retraction and manipulation of instruments, proper exposure, graft prep, and manipulation of tissue. Complications: none Post-operative Condition: stable Disposition: PACU Plan for aftercare: Postoperative instructions: Sling to remain on for 6 weeks. No external rotation past neutral for 6 weeks. Okay for the sling to come off for shower. Okay to shower over the Aquacel dressing. If any water gets underneath the dressing, remove the dressing. First postoperative visit in 2 weeks.
--- NOTE | 2024-03-25 17:00 | SUR.PHASEII ---
pt states she will be all alone at home - Dr Tracey notified for admission orders.
--- NOTE | 2024-03-25 17:03 | SUR.PHASEII ---
After attempting to take patient to the car, the milk delivery driver verbalizes that there is no one to be with the patient at home tonight and that she is the ride only. Called Dr Tracey and notified him of need to admit patient overnight due to safety issues. Dr Tracey agrees and will place transfer orders for admission overnight. Patient in agreement. district sales coordinator notified of need for inpatient bed.
--- NOTE | 2024-03-25 18:42 | PC.NURSE ---
PATIENT STATES SHE WILL BE GOING HOME IN THE MORNING, STATES I DID TELL THE DRRomeo PRIOR TO SURGERY I HAD NO HELP. ASKED PATIENT WHAT WILL SHE DO TOMORROW WITHOUT HELP. PATIENT STATES I CAN ASK MY NEIGHBOR FOR HELP, I DID NOT WANT TO BOTHER HER TODAY. SLING TO RIGHT SHOULDER IN PLACE, DENIES ANY PAIN, ORIENTED TO ROOM
[2024-03-25] MEDS: DOCUSATE 100 MG CAPSULE PO (21:13)
[2024-03-25] MEDS: ASPIRIN EC 81 MG TABLET PO (21:13)
[2024-03-25] MEDS: SENNOSIDES 8.6 MG TABLET 17.2 MG PO (21:13)
--- NOTE | 2024-03-25 21:18 | PC.NURSE ---
PATIENT IS SLEEPING WAKES EASY WITH NAME,DENIES AND PAIN , RIGHT HAND IS WARM WITH POSITIVE PULSES.TOOK 2100 MEDS WITHOUT DIFFICULTY,HAS HAD SOMETHING FOR DINNER. REQUESTS FOR NO IV BE RESTARTED AND NO IV FLUIDS OVER NIGHT. STATES SHE IS GOING HOME TOMORROW AND DOES NOT NEED. TAKING ORAL FLUIDS AND FOOD WITHOUT DIFFICULTY.CALL LIGHT IN REACH,NO NEEDS AT THIS TIME.
[2024-03-25] MEDS: HYDROCODONE/ACET 5/325 TABLET 1 TAB PO (23:29)
[2024-03-26 00:55] VITALS: BP 128/67; PULSE 69; RESP 16; TEMP 36.8; O2SAT 97
[2024-03-26] MEDS: HYDROCODONE/ACET 5/325 TABLET 1 TAB PO ×3 (03:26→15:10)
[2024-03-26] MEDS: IBUPROFEN 600 MG TABLET PO (05:40)
[2024-03-26] MEDS: HYDROCODONE/ACET 5/325 TABLET 2 TAB PO (06:03)
[2024-03-26] MEDS: LEVOTHYROXINE 75 MCG TABLET PO (06:03)
[2024-03-26 07:00] VITALS: BP 118/72; PULSE 74; RESP 16; TEMP 37.3; O2SAT 97
[2024-03-26] MEDS: DOCUSATE 100 MG CAPSULE PO (09:10)
[2024-03-26] MEDS: ASPIRIN EC 81 MG TABLET PO (09:11)
--- NOTE | 2024-03-26 11:04 | PM.DS.1 ---
History of Present Illness History of Present Illness Chief complaint: Right total shoulder *OPB* Narrative: Heather is a pleasant 68-year-old female who is postop day #1 status post right reverse total shoulder arthroplasty by Dr. Tracey. This morning patient reports she is doing well overall, she had a lot of pain last night and difficulty sleeping but is feeling much better today. She does live alone but has a neighbor who is willing to provide assistance as needed during her postop recovery. She has postop physical therapy appointments scheduled already with our [address] [place] [address] office. She is urinating well without issue, has been able to get up in mobilize around her room without issue. She reports she has a hydrocodone prescription at home already for postop use. Denies fever, chills, chest pain, SOB, nausea, vomiting. Operative Date/Time/Diagnoses Date of procedure: 03/25/24 Time of procedure: 15:33 Pre-op diagnosis: Right glenohumeral arthritis Post-op diagnosis: same Procedure & Clinicians Procedure: Right reverse total shoulder arthroplasty Same procedure as scheduled: Yes Indications: Indications: This is a 68-year-old female who has right glenohumeral arthritis. Symptoms have been present for years, insidious onset. Patient has failed a reasonable attempt at conservative therapy. After extensive discussion in clinic, they wished to go forward with surgery. Risks and benefits were described including the risk of infection, bleeding, damage to internal structures including nerves. We also discussed the risk of failure of surgery and the need for revision surgery as well as the risk of anesthesia. The patient expressed understanding with these risks and wished to go forward with surgery. Surgeon: Tian Tracey Beam Dyer Recessed Vat: Chikis Hamm Anesthesia Type: General Discharge Providers Provider Discharge Date: 03/26/24 Primary care physician: Isha Parrish, surfacer operator provider: Chikis Hamm PA-C Summary Hospital Course Discharge Diagnosis: stable status post right reverse total shoulder arthroplasty Hospital Course: relatively uncomplicated hospital course, poor pain control the night of the operative day, limited support at home as well. Exam Vital Signs (past 8 hours): - 03/26/24 07:00 Temperature 99.2 F Pulse Rate 74 Respiratory Rate 16 Blood Pressure 118/72 Pulse Oximetry 97 Oxygen Flow Rate 0 Oxygen Delivery Method Nasal Cannula Oxygen Flow Rate 0 Narrative Exam Narrative: Patient sitting comfortably in bed during our interview today. No acute distress. AOx3. Grossly normal alignment of the right upper extremity. no significant swelling or ecchymosis of the right shoulder. 5/5 strength with wrist flexion, wrist extension, trumpet teacher strength. Gross sensation intact throughout bilateral upper extremities. Brisk capillary refill, pulses intact. Post-surgical Aquacel dressing clean, dry and intact over the right shoulder without drainage. 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 Social History marital status: unmarried,single household members: none lives independently: Yes occupational status: previously employed Smoking Status: Current every day smoker Tobacco: How many years used: 48 second hand exposure: No alcohol intake: current substance use type: marijuana Discharge Assessment & Plan Assessment and Plan Assessment: stable status post right reverse total shoulder arthroplasty. Plan of Treatment: 1) Plan to discharge to home today with neighbor. 2) Continue multimodal pain management with ice to the shoulder for additional pain control. Patient has postop hydrocodone prescription at home already, I will send an additional pantoprazole prescription to help reduce stomach irritation with ibuprofen use. 3) ASA b.i.d. for DVT prophylaxis. 4) Start outpatient physical therapy to work on range of motion and mobility. 5) Keep dressing intact, clean, dry until 2 week postop appointment. No soaking the incision site in pools or tubs. No topical ointments or creams to the incision site. 6) Follow up at [facility] orthopedic in 2 weeks for a postop appointment and wound check. All patient's questions were answered, she demonstrates understanding and is in agreement with the plan. Call our office if any questions or concerns arise. Discharge Plan Discharge Plan Patient Disposition: Home Nursing Discharge Comment: You received Tylenol at 2pm. Discharge orders & Medications Discharge Orders: Discharge (Order); Ordered 03/26/24 Ordered By: Chikis Hamm Prescriptions: New hydrocodone-acetaminophen 5-325 mg tablet 1 tab PO Q6H PRN (Reason: pain) Qty: 30 0RF aspirin 81 mg capsule 81 mg PO BID Qty: 90 0RF Continued levothyroxine 75 mcg tablet See Rx Instructions PO .6 days a week Patient Comments: 1 tablet PO 6 days a week. Rx Instructions: takes 75mcg all days except Friday levothyroxine 88 mcg tablet See Rx Instructions PO .one day a week Patient Comments: 1 tablet PO one day a week. Rx Instructions: 1 tablet by mouth on Wednesdays only. ondansetron HCl 4 mg tablet 4 mg PO Q8H PRN (Reason: nausea and vomiting) Qty: 10 0RF ibuprofen 600 mg tablet 600 mg PO Q6H PRN (Reason: pain) Qty: 60 0RF naltrexone 50 mg Tablet 4.5 mg PO BEDTIME Changed acetaminophen [Acetaminophen Extra Strength] 500 mg tablet 1,000 mg PO Q8HR Qty: 90 0RF Follow up/Referrals: Tian Tracey MD [Physician] - (Follow up at [facility] as scheduled in 2 weeks. ) Isha Parrish ARNP RN [Primary Care Provider] - Diet/Activity/Treatments Diet: Diet as Tolerated Activity: Remain in sling with no external rotation past neutral for 6 weeks. Work with PT on ROM and mobility. Cold/Heat Therapy: Ice to the shoulder for additional pain control. Skin/Wound/Dressing Care Report to your healthcare provider any signs of infection, such as:: chills, fever, night sweats, unusual drainage and unusual redness Dressing: Dressing to remain on for 2 weeks, it will be removed at your 2 week post-op visit in our clinic. Okay to shower with soap and water running over top of the dressing. NOTE: If water gets underneath the dressing, please remove the dressing and replace with clean dry 4x4s. Visit Report/Discharge Packet Instructions: DI for Prescription Opioid Use, DI for Shoulder Replacement Stand Alone Forms: Patient Portal/API, Surgery Discharge Discharge Data Primary Care Provider: Isha Parrish Attending Provider: Tian Tracey VTE Deep Vein Thrombosis/Pulmonary Embolism Present on Admission: No
--- NOTE | 2024-03-26 12:16 | PC.NURSE ---
Patient given 2 vicodin for pain and discomfort, she has her arm brace in place and is comfortable. Patient will be discharging today.
--- NOTE | 2024-03-26 15:22 | PC.NURSE ---
Patient discharged. Instructed to shower without sling on and then put it back on when she is done but patient states that she will cover sling with plastic and sit down to shower. This RN tried to explain precautions to patient and she became upset about it. This RN just let her speak. Down to car with two student RNs.
--- NOTE | 2024-03-26 15:44 | CM.DANOTE ---
Initial DCP Assessment Note Pt is a 68 yo female, resident of [place], now POD#1 from [facility] TSA [address] Dr Tracey PCP: Isha Parrish Payer: [employer] Reviewed chart, pt discussed in multidisciplinary rounds this morning. Therapy has cleared pt for return home w/friend to assist as needed and pt has planned for home, DC order from Ortho has already been initiated this morning. No barriers identified at this time to patient's safe discharge home w/friend to assist as needed; close outpatient f/u recommended. CM team will plan to follow clinical course closely in case any DC needs or concerns arise. ROMARIO Vargas Discharge Planning/Care Management CM Discharge Assessment Start: 03/26/24 15:42 Freq: Status: Active Protocol: Document 03/26/24 15:42 QUINTEN (Rec: 03/26/24 15:44 QUINTEN [id number]) Discharge Planning Assessment Assigned Quality Assurance Monitor Chassis ROMARIO Faustin DPOA/Assigned Designee Name norma Mensah Contact Information [phone] Advance Directives? Yes Advance Directives on File No History Provided By Patient,Medical Record Prior Living Arrangements House Household Members none Type of transporation used prior to Drives own vehicle admit Independent with ADL's Yes Is patient alert and oriented? Yes Discharge Plan Home Transportation Arrangement Friend Pham [facility] Referrals Initiated None needed
== END 2024-03-26 15:47 | disposition home or self-care (01) ==
LOC: OR 12:56 → AC 12:56
PROVIDERS: PCP Nurse Practitioner Family; Referring Provider Orthopaedic Surgery; Visit Provider Orthopaedic Surgery
PROC: (CPT 23472; principal; 2024-03-25 15:15)
DX: M19.012 Primary osteoarthritis, left shoulder (principal); G89.18 Other acute postprocedural pain; M25.711 Osteophyte, right shoulder
CPT/HCPCS: 23472; 64415; 73020; C1776; J0171; J0690; J1100; J1171; J2405; J2704; J3010

== ENCOUNTER → 2024-06-18 15:27 | Outpatient (CLI) | payer MEDICARE, OTHER, SELFPAY ==
[2024-03-25 18:36] VITALS: BMI 21.9
--- NOTE | 2024-06-18 15:31 | DI.MG.S_ITS ---
BILATERAL DIGITAL SCREENING MAMMOGRAM 3D/2D WITH CAD: 06/18/2024 CLINICAL: Routine screening. Family history of breast cancer. Comparison is made to exams dated: 05/02/2023 mammogram - [facility], 04/06/2022 mammogram, and 10/29/2019 mammogram - [facility]. The breasts are heterogeneously dense, which may obscure small masses (category c / 51-75% glandular tissue). Current study was also evaluated with a Computer Aided Detection (CAD) system. No significant masses, calcifications, or other findings are seen in either breast. There has been no significant interval change. IMPRESSION: NEGATIVE There is no mammographic evidence of malignancy. A 1 year screening mammogram is recommended. Based on the Tyrer Cuzick model (a risk assessment model) the patient's lifetime risk is 11.7% and her 10 year risk is 7.0%. According to the ACR, ACS, and NCCN guidelines, an annual breast MRI exam along with mammogram is recommended if the patient's lifetime risk is 20% or greater. This exam was interpreted at Station ID: [id number]. NOTE: For mammograms, a report in lay terms will be sent to the patient. Approximately 15% of breast malignancies will not be visualized mammographically. In the management of a palpable breast mass, a negative mammogram must not discourage biopsy of a clinically suspicious lesion. Electronically Signed By: Mo crouch/divya:06/18/2024 16:31:56 letter sent: Normal Exam ACR BI-RADS Category 1: Negative
== END ==
PROVIDERS: PCP Physician Assistant; Referring Provider Nurse Practitioner Family; Visit Provider Nurse Practitioner Family
DX: Z12.31 Encounter for screening mammogram for malignant neoplasm of breast (principal); Z80.3 Family history of malignant neoplasm of breast; R92.333 Mammographic heterogeneous density, bilateral breasts
CPT/HCPCS: 77063; 77067

== ENCOUNTER → 2025-01-14 08:10 | Outpatient (CLI) | payer MEDICARE, OTHER, SELFPAY ==
[2024-03-25 18:36] VITALS: BMI 21.9
[2025-01-14 08:52] LABS: Add Manual Diff / Slide Review NO; Hematocrit 39.6 % (36-46); Hemoglobin 13.3 g/dL (12.0-16.0); Lymphocytes Absolute Auto 3300 /uL (1100-4500); Mean Corpuscular HGB Conc 33.7 % (30-36); Mean Corpuscular Hemoglobin 29.1 PG (26-34); Mean Corpuscular Volume 86.5 fL (80-100); Platelet Count 382 X10^3/uL (150-400)
[2025-01-14 09:19] LABS: Alanine Aminotransferase 21 IU/L (<35); Albumin 4.4 g/dL (3.5-5.0); Albumin Globulin Ratio 1.5 (1.0-2.8); Alkaline Phosphatase 56 U/L (38-126); Blood Urea Nitrogen 21 mg/dL (7-17); Calcium 9.9 mg/dL (8.4-10.2); Carbon Dioxide 23 mmol/L (22-32); Chloride 107 mmol/L (98-107); Estimated Glomerular Filt Rate > 60 mL/min (>60); Globulin 2.9 g/dL (1.7-4.1); Glucose 93 mg/dL (70-99); HEMOLYSIS < 15 (0-50); Potassium 4.2 mmol/L (3.4-5.1); Sodium 138 mmol/L (137-145); Total Protein 7.3 g/dL (6.3-8.2)
[2025-01-14 09:36] LABS: Free T3, Triiodothyronine Free 3.24 pg/mL (2.77-5.27); Free T4, Direct Thyroxine 1.48 ng/dL (0.78-2.19)
[2025-01-14 09:49] LABS: Thyroid Stimulating Hormone 3.67 uIU/mL (0.47-4.68)
== END ==
PROVIDERS: PCP Student in an Organized Health Care Education/Training Program; Referring Provider Student in an Organized Health Care Education/Training Program; Visit Provider Student in an Organized Health Care Education/Training Program
DX: Z00.00 Encounter for general adult medical examination without abnormal findings (principal); Z86.39 Personal history of other endocrine, nutritional and metabolic disease; E03.9 Hypothyroidism, unspecified
CPT/HCPCS: 36415; 80053; 84439; 84443; 84481; 85025

== ENCOUNTER → 2025-01-15 14:11 | Outpatient (CLI) | payer MEDICARE, OTHER, SELFPAY ==
[2024-03-25 18:36] VITALS: BMI 21.9
--- NOTE | 2025-01-15 14:16 | DI.MRI.S_ITS ---
PROCEDURE: MR SHOULDER RT WO CON INDICATIONS: h/o shoulder replacement, difficulty with movement TECHNIQUE: Noncontrast oblique coronal T2 fast spin echo with fat saturation, oblique sagittal T1 spin echo and T2 fast spin echo with fat saturation, axial T1 spin echo and T2 fast spin echo with fat saturation through the shoulder. COMPARISON: [facility] [place], CR, XR SHOULDER 2+ VIEWS RIGHT, 07/19/2024, 10:48. [facility], CT, CT UE RT WO CON, 01/05/2024, 10:12. [facility] [place], CR, XR SHOULDER 2+ VIEWS RIGHT, 05/10/2024, 8:40. FINDINGS: Image quality: Degraded by metallic artifact. Shoulder arthroplasty has been performed. Rotator cuff is not well visualized but is intact as visualized. Periarticular osteophyte formation at the acromioclavicular joint. Osseous structures otherwise within normal limits. IMPRESSION: Limited examination secondary to shoulder arthroplasty. Dictated by: Gagan Mejia M.D. on 01/17/2025 at 12:40 Approved by: Gagan Mejia M.D. on 01/17/2025 at 12:42
== END ==
LOC: MRI 14:14
PROVIDERS: PCP Student in an Organized Health Care Education/Training Program; Referring Provider Student in an Organized Health Care Education/Training Program; Visit Provider Student in an Organized Health Care Education/Training Program
DX: Z09 Encounter for follow-up examination after completed treatment for conditions other than malignant neoplasm (principal); Z96.619 Presence of unspecified artificial shoulder joint
CPT/HCPCS: 73221